=== PATIENT | female | born 1995 | race Two or more races ===

== ENCOUNTER 2017-12-10 11:36 | Emergency (ER) ==
[2017-12-10] MEDS ORDERED: SODIUM CHLORIDE 1,000 ML IV STA (11:46)
[2017-12-10 11:50] VITALS: BP 145/96; TEMP 97.6; BMI 18.8
[2017-12-10] MEDS ORDERED: ZOFRAN 4 MG/2 ML IM STA (12:10)
[2017-12-10] MEDS ORDERED: ZOFRAN 4 MG/2 ML IVP PRN (12:11)
[2017-12-10] MEDS ORDERED: PEPCID 20 MG in SODIUM CHLORIDE 50 ML IV STA (12:12)
[2017-12-10] MEDS ORDERED: ZOFRAN 4 MG/2 ML IVP STA (12:12)
[2017-12-10] MEDS ORDERED: PEPCID IVP STA (12:17)
[2017-12-10] MEDS ORDERED: PEPCID ONE (12:17)
[2017-12-10] MEDS ORDERED: PEPCID 20 MG in SODIUM CHLORIDE 50 ML IVP STA (12:20)
[2017-12-10] MEDS ORDERED: HUMALOG SUBCUT STA (12:27)
--- NOTE | 2017-12-10 12:31 | ED.PDOC ---
General ED Provider: Dr. BRIGIDA IRBY Chief Complaint: Diabetes Stated Complaint: Recurrent Nausea, Vomiting and elevated Blood glucose levels Time Seen by Physician: 12:05 Mode of Arrival: Wheelchair Information Source: Patient, Family Primary Care Provider: ROD GARRISON Nursing and Triage Documentation Reviewed and Agree: Yes Reviewed sepsis parameters & appropriate labs ordered?: Yes System Inflammatory Response Syndrome: Pulse >90 BPM, Resp >20/Minute Sepsis Protocol: For patient's 13 years and over: Temp is 96.8 and below OR 101 and greater Pulse >90 BPM Resp >20/minute Acutely Altered Mental Status Are patient's symptoms suggestive of a new infection, such as: -Pneumonia -Skin, Soft Tissue -Endocarditis -UTI -Bone, Joint Infection -Implantable Device -Acute Abdominal Infection -Wound Infection -Meningitis -Blood Stream Catheter Infection -Unknown System Inflammatory Response Syndrome: Not Applicable Endocrine Complaint Exam - Diabetic Complication Complaint/Exam Symptoms Are: Worse Timing: Intermittent Initial Severity: Severe Current Severity: Severe Character: Alert Alleviating: Reports: None Associated Signs and Symptoms: Reports: Polydipsia, Nausea, Vomiting. Denies: Abdominal pain, Fever, Diaphoresis Related History: Reports: Similar episode, DM 1, Insulin requiring, Hx of DKA Cardiac Risk Factors: Reports: DM CVA Risk Factors: Reports: DM Serious Bacterial Infection Risk Factors: Reports: None Related Surgical History: Reports: None Acetone on Breath: Yes Dry Mucous Membranes: Yes Kussmaul Respirations: No Meningeal Signs: No Focal Weakness: None Focal Sensory Loss: None Gait: Unable Nystagmus Present: No Gag Reflex Present: Yes Differential Diagnoses: Diabetic Ketoacidosis, Hyperglycemia Review of Systems - Review Of Systems Constitutional: Reports: Chills, Malaise, Weakness, Loss of appetite Eyes: Reports: No symptoms Ears, Nose, Mouth, Throat: Reports: No symptoms Respiratory: Reports: No symptoms Cardiac: Reports: No symptoms GI: Reports: Nausea, Poor appetite, Poor fluid intake, Vomiting. Denies: Abdomen distended, Diarrhea, Rectal bleeding : Reports: No symptoms. Denies: Burning, Dysuria, Hematuria, Incontinence, Urgency Musculoskeletal: Reports: No symptoms Skin: Reports: No symptoms Neurological: Reports: No symptoms Endocrine: Reports: Increased thirst Hematologic/Lymphatic: Reports: No symptoms All Other Systems: Reviewed and Negative Past Medical History - Past Medical History Endocrine: Reports: DM 1 Cardiovascular: Reports: None Respiratory: Reports: None Hematological: Reports: None Gastrointestinal: Reports: None Genitourinary: Reports: None Neuro/Psych: Reports: None Musculoskeletal: Reports: None Cancer: Reports: None Last Menstrual Period: 2 WEEKS - Surgical History General Surgical History: Reports: None - Family History Family History: Reports: None, Hypertension - Social History Smoking Status: Never smoker Hx Substance Use: No Alcohol Screening: None Lives: Alone - Immunizations Tetanus Shot up to Date: Yes Physical Exam - Physical Exam Appearance: Ill-appearing Ill-appearing: Severe Pain Distress: None Eyes: SANJUANITA, EOMI ENT: Ears normal, Nose normal Respiratory: Airway patent, Breath sounds clear Cardiovascular: RRR, Pulses normal GI/: Soft Musculoskeletal: Normal strength Skin: Warm Neurological: Sensation intact Psychiatric: Affect appropriate Re-Evaluation - Re-Evaluation Time of Re-Evaluation: 13:50 Status: Improved (Has spontaneous Void 700 cc) Vital Signs Stable: Yes Appearance: NAD Lungs: Clear Skin: Warm and Dry Neuro: Alert and Oriented X3 CV: RRR Additional Comments: Condition improved beginning to repond to tx/contacting hospitalist, - Re-Evaluation Time of Re-Evaluation: 07:45 Status: Improved Vital Signs Stable: Yes Skin: Warm and Dry (Transfering to [facility]) Neuro: Alert and Oriented X3 CV: RRR Additional Comments: Discussed with Hospitalist/prefers to transfer/ Transferring to Dr Contreras Critical Care Note - Critical Care Note Total Time (mins): 2 Course - Course Hematology/Chemistry: 12/10/17 11:30 12/10/17 14:10 Orders, Labs, Meds: Lab Review 12/10/17 12/10/17 12/10/17 11:30 11:30 12:25 WBC 21.79 H RBC 4.86 Hgb 15.1 Hct 47.4 H MCV 97.5 MCH 31.1 H MCHC 31.9 RDW Coeff of Ion 14.9 H Plt Count 480 H Immature Gran % (Auto) 2.2 Neut % (Auto) 56.2 Lymph % (Auto) 31.3 [place] % (Auto) 9.6 Eos % (Auto) 0.0 Baso % (Auto) 0.7 Immature Gran # (Auto) 0.5 Neut # 12.2 H Lymph # 6.8 H [place] # 2.1 H Eos # 0.0 Baso # 0.2 Puncture Site L brach O2 Saturation 98.0 ABG pH 6.965 L* ABG pCO2 8.9 L ABG pO2 150.0 H ABG HCO3 2.0 L ABG Total CO2 < 5 L ABG Base Excess -30 L Ricky Test + FiO2 % 21.0 Sodium 138 Potassium 4.7 Chloride 101 Carbon Dioxide < 5 L* Anion Gap 36.08633 BUN 15 Creatinine 1.68 H Estimated GFR (MDRD) 39.00 BUN/Creatinine Ratio 8.92 Glucose 650 H* Lactic Acid Calcium 9.9 Total Bilirubin 0.4 AST 77 H ALT 229 H Alkaline Phosphatase 289 H Total Protein 8.8 H Albumin 4.1 Globulin 4.7 Albumin/Globulin Ratio 0.87 Amylase 40 Lipase 18 Procalcitonin Urine Color Urine Clarity Urine pH Ur Specific [place] Urine Protein Urine Glucose (UA) Urine Ketones Urine Blood Urine Nitrite Urine Bilirubin Urine Urobilinogen Ur Leukocyte Esterase Urine Microscopic RBC Ur Squamous Epith Cells Influenza A (Rapid) Influenza B (Rapid) 12/10/17 12/10/17 12/10/17 12:57 12:57 13:25 WBC RBC Hgb Hct MCV MCH MCHC RDW Coeff of Ion Plt Count Immature Gran % (Auto) Neut % (Auto) Lymph % (Auto) [place] % (Auto) Eos % (Auto) Baso % (Auto) Immature Gran # (Auto) Neut # Lymph # [place] # Eos # Baso # Puncture Site O2 Saturation ABG pH ABG pCO2 ABG pO2 ABG HCO3 ABG Total CO2 ABG Base Excess Ricky Test FiO2 % Sodium Potassium Chloride Carbon Dioxide Anion Gap BUN Creatinine Estimated GFR (MDRD) BUN/Creatinine Ratio Glucose Lactic Acid 29.3 H Calcium Total Bilirubin AST ALT Alkaline Phosphatase Total Protein Albumin Globulin Albumin/Globulin Ratio Amylase Lipase Procalcitonin 0.05 Urine Color Yellow Urine Clarity Clear Urine pH 5.0 Ur Specific [place] 1.020 Urine Protein 1+ Urine Glucose (UA) 2+ Urine Ketones 3+ Urine Blood 1+ Urine Nitrite Negative Urine Bilirubin Negative Urine Urobilinogen 0.2 Ur Leukocyte Esterase Negative Urine Microscopic RBC 0-2 Ur Squamous Epith Cells 5-10 Influenza A (Rapid) Influenza B (Rapid) 12/10/17 12/10/17 12/10/17 13:35 13:57 14:10 WBC RBC Hgb Hct MCV MCH MCHC RDW Coeff of Ion Plt Count Immature Gran % (Auto) Neut % (Auto) Lymph % (Auto) [place] % (Auto) Eos % (Auto) Baso % (Auto) Immature Gran # (Auto) Neut # Lymph # [place] # Eos # Baso # Puncture Site R brachial O2 Saturation 98.0 ABG pH 6.894 L* ABG pCO2 10.1 L ABG pO2 163.0 H ABG HCO3 2.0 L ABG Total CO2 < 5 L ABG Base Excess < -30 L Ricky Test + FiO2 % 21.0 Sodium 141 Potassium 4.8 Chloride 111 H Carbon Dioxide < 5 L* Anion Gap 29.81211 BUN 14 Creatinine 1.30 Estimated GFR (MDRD) 52.00 BUN/Creatinine Ratio 10.76 Glucose 541 H* D Lactic Acid Calcium 8.2 Total Bilirubin AST ALT Alkaline Phosphatase Total Protein Albumin Globulin Albumin/Globulin Ratio Amylase Lipase Procalcitonin Urine Color Urine Clarity Urine pH Ur Specific [place] Urine Protein Urine Glucose (UA) Urine Ketones Urine Blood Urine Nitrite Urine Bilirubin Urine Urobilinogen Ur Leukocyte Esterase Urine Microscopic RBC Ur Squamous Epith Cells Influenza A (Rapid) Negative by naat Influenza B (Rapid) Negative by naat Orders Category Date Time Status ABG DRAW REQUEST Stat CARDIO 12/10/17 12:15 Completed ABG DRAW REQUEST Stat CARDIO 12/10/17 13:57 Completed EKG-(ED ONLY) Stat CARDIO 12/10/17 13:35 Completed BLOOD GLUCOSE MONITORING Q1HR CARE 12/10/17 12:28 Active BLOOD GLUCOSE MONITORING Q1HR CARE 12/10/17 13:49 Active ACCUCHECK (ED) [ED ACCUCHECK ASSESSMENT] .ONCE EMERGENCY 12/10/17 12:17 Active IV [ED IV/MEDIPORT/POWERPORT] .ONCE EMERGENCY 12/10/17 13:52 Active ABG Stat LAB 12/10/17 12:25 Completed ABG Stat LAB 12/10/17 13:57 Completed AMYLASE Stat LAB 12/10/17 11:30 Completed BASIC METABOLIC PANEL Stat LAB 12/10/17 14:10 Completed BLOOD CULTURE (ED ONLY) Stat LAB 12/10/17 13:15 Completed CBC W/ AUTO DIFF Stat LAB 12/10/17 11:30 Completed COMPREHENSIVE METABOLIC PANEL Stat LAB 12/10/17 11:30 Completed FLU A/B MOLECULAR Stat LAB 12/10/17 13:35 Completed LACTIC ACID Stat LAB 12/10/17 12:57 Completed LIPASE Stat LAB 12/10/17 11:30 Completed PROCALCITONIN Stat LAB 12/10/17 12:57 Completed RAPID STREP SCREEN [MOLECULAR GROUP A STREP] Stat LAB 12/10/17 13:35 Completed URINALYSIS C & S IF INDICATED Stat LAB 12/10/17 13:25 Completed 0.9 % Sodium Chloride [Saline Flush] MEDS 12/10/17 13:52 Discontinued 1 syr IVF PRN PRN 0.9 % Sodium Chloride [Sodium Chloride] 100 ml MEDS 12/10/17 14:00 Discontinued Insulin Regular, Human [Humulin R] 100 unit IV 10 unit/hr Famotidine Inj [Pepcid] MEDS 12/10/17 12:17 Discontinued 20 mg .ROUTE .STK-MED ONE Famotidine Inj [Pepcid] MEDS 12/10/17 12:17 Discontinued 20 mg IVP ONCE STA Famotidine Inj [Pepcid] 20 mg MEDS 12/10/17 12:12 Discontinued 0.9 % Sodium Chloride [Sodium Chloride] 50 ml IV ONCE Insulin Lispro [Humalog] MEDS 12/10/17 12:27 Discontinued 20 unit SUBCUT ONCE STA Insulin Regular, Human [Humulin R] MEDS 12/10/17 13:45 Discontinued 0.1 unit IVP ONCE STA Insulin Regular, Human [Humulin R] MEDS 12/10/17 12:36 Discontinued 20 unit .ROUTE .STK-MED ONE Ondansetron HCl/Pf [Zofran 4 mg/2 ml] MEDS 12/10/17 12:12 Discontinued 4 mg IVP ONCE STA Ondansetron HCl/Pf [Zofran 4 mg/2 ml] MEDS 12/10/17 12:11 Discontinued 4 mg IVP Q6H PRN Piperacillin Sodium/Tazobactam [Zosyn 3.375 gm] 3.375 MEDS 12/10/17 13:25 Discontinued gm 0.9 % Sodium Chloride [Sodium Chloride] 50 ml IV ONCE Sodium Chloride 0.9% [Sodium Chloride] 1,000 ml MEDS 12/10/17 11:46 Discontinued IV BOLUS Sodium Chloride 0.9% [Sodium Chloride] 1,000 ml MEDS 12/10/17 13:07 Discontinued IV BOLUS Sodium Chloride 0.9% [Sodium Chloride] 1,000 ml MEDS 12/10/17 13:54 Discontinued IV BOLUS CHEST, 1V AP ONLY Stat RADS 12/10/17 13:35 Completed Medications Discontinued Medications Generic Name Dose Route Start Last Admin Trade Name Coreyq PRN Reason Stop Dose Admin Famotidine 20 mg 12/10/17 12:17 12/10/17 12:32 Pepcid IVP 12/10/17 12:18 20 mg ONCE STA Administration Famotidine 20 mg/ Sodium 52 mls @ 100 mls/hr 12/10/17 12:12 12/10/17 12:42 Chloride IV 12/10/17 12:43 Not Given ONCE STA Sodium Chloride 1,000 mls @ 1,000 mls/hr 12/10/17 11:46 12/10/17 11:46 Sodium Chloride IV 12/10/17 12:45 1,000 mls/hr BOLUS STA Administration Sodium Chloride 1,000 mls @ 500 mls/hr 12/10/17 13:07 12/10/17 13:12 Sodium Chloride IV 12/10/17 15:06 500 mls/hr BOLUS ONE Administration Piperacillin Sod/Tazobactam 50 mls @ 50 mls/hr 12/10/17 13:25 12/10/17 14:09 Sod 3.375 gm/ Sodium Chloride IV 12/10/17 14:24 50 mls/hr ONCE STA Administration Insulin Human Regular 100 unit 100 mls @ 10 mls/hr 12/10/17 14:00 12/10/17 14 :21 / Sodium Chloride IV 10 unit/hr .Q10H TICO 10 mls/hr Protocol Administration 10 UNIT/HR Sodium Chloride 1,000 mls @ 1,000 mls/hr 12/10/17 13:54 12/10/17 14:26 Sodium Chloride IV 12/10/17 14:06 1,000 mls/hr BOLUS ONE Administration Insulin Human Lispro 20 unit 12/10/17 12:27 12/10/17 12:41 Humalog SUBCUT 12/10/17 12:28 Not Given ONCE STA Insulin Human Regular 0.1 unit 12/10/17 13:45 12/10/17 14:00 Humulin R IVP 12/10/17 13:46 5 unit ONCE STA Administration Ondansetron HCl 4 mg 12/10/17 12:11 Zofran 4 Mg/2 Ml IVP Q6H PRN Nausea -Vomiting Ondansetron HCl 4 mg 12/10/17 12:12 12/10/17 12:22 Zofran 4 Mg/2 Ml IVP 12/10/17 12:13 4 mg ONCE STA Administration Sodium Chloride 1 syr 12/10/17 13:52 Saline Flush IVF PRN PRN To flush IV Vital Signs: Temp Pulse Resp BP Pulse Ox 12/10/17 11:37 97.6 F 135 H 44 H 145/96 H 100 Departure - Departure Time of Disposition: 15:45 Disposition: TSF SHORT-TRM HOSP Discharge Problem: DKA (diabetic ketoacidoses) Instructions: Diabetic Ketoacidosis (GEN) Condition: Serious Pt referred to PMD for follow-up: No IPMP verified?: No (N/I) Allergies/Adverse Reactions: Allergies No Known Allergies Allergy (Unverified 12/10/17 11:51) Home Medications: Ambulatory Orders Insulin Glargine,Hum.rec.anlog [Lantus] 35 unit SQ BEDTIME 12/10/17 Insulin Lispro [Humalog Kwikpen] 100 unit SQ ACCUCHECK Q6H 12/10/17 Pt. Stabilized Within Hospital's Capabilities/Transferred To: [facility] CCU Transfer Form Completed: Yes Disposition Discussed With: Patient, Family
[2017-12-10] MEDS ORDERED: HUMULIN R ONE (12:36)
[2017-12-10] MEDS ORDERED: SODIUM CHLORIDE 1,000 ML IV ONE ×2 (13:07→13:54)
[2017-12-10] MEDS ORDERED: ZOSYN 3.375 GM 3.375 GM in SODIUM CHLORIDE 50 ML IV STA (13:25)
[2017-12-10] MEDS ORDERED: HUMULIN R IVP STA (13:45)
[2017-12-10] MEDS ORDERED: HUMULIN R 100 UNIT in SODIUM CHLORIDE 100 ML IV SCH (14:00)
--- NOTE | 2017-12-10 14:28 | DI ---
EXAM: Single frontal view of the chest HISTORY: Diabetic ketoacidosis. COMPARISON: None FINDINGS: Cardiomediastinal silhouette is unremarkable. There is no pneumothorax or pleural effusion . The lungs demonstrate no consolidation, nodule or mass. The osseous structures are unremarkable. IMPRESSION: No acute cardiopulmonary process.
== END 2017-12-10 15:30 | disposition short-term general hospital (02) ==
LOC: ED 11:36
DX: E10.10 Type 1 diabetes mellitus with ketoacidosis without coma (principal); Z79.4 Long term (current) use of insulin
CPT/HCPCS: 36415; 80048; 80053; 81001; 82150; 82803; 82962; 83605; 83690; 84145; 85025; 87040; 87502; 87651; 93005; 93010; 96361; 96365; 96366; 96372; 96375; 99285

== ENCOUNTER 2017-12-10 15:48 | Outpatient (CLI) ==
[2017-12-10 11:50] VITALS: BMI 18.8
== END 2017-12-10 15:49 | disposition short-term general hospital (02) ==
LOC: AMBL 15:48
PROVIDERS: ATTEND Emergency Medicine
DX: E11.10 Type 2 diabetes mellitus with ketoacidosis without coma (principal); R06.82 Tachypnea, not elsewhere classified; R00.0 Tachycardia, unspecified

== ENCOUNTER 2018-02-12 06:31 | Emergency (ER) ==
[2018-02-12] MEDS ORDERED: SODIUM CHLORIDE 1,000 ML IV STA ×4 (06:40→08:19)
[2018-02-12 06:57] VITALS: BP 129/91; TEMP 97.7; BMI 20.3
[2018-02-12] MEDS ORDERED: ZOFRAN 4 MG/2 ML IVP STA (07:48)
[2018-02-12] MEDS ORDERED: UNASYN 3 GM in SODIUM CHLORIDE 100 ML IV STA (07:57)
[2018-02-12] MEDS ORDERED: HUMULIN R 100 UNIT in SODIUM CHLORIDE 100 ML IV SCH (08:00)
[2018-02-12] MEDS ORDERED: UNASYN ONE (08:03)
--- NOTE | 2018-02-12 08:12 | ED.PDOC ---
General ED Provider: Dr. CECILIA WILHELM Chief Complaint: Diabetes Stated Complaint: high blood sugar Time Seen by Physician: 07:00 (seen with entire nursing staff) Mode of Arrival: Wheelchair Information Source: Patient, Family Exam Limitations: No limitations Primary Care Provider: ROD GARRISON Nursing and Triage Documentation Reviewed and Agree: Yes (pt's blood sugar high 1 day ago ) Reviewed sepsis parameters & appropriate labs ordered?: Yes (started to become nauseated blood sgar read high on her machine) System Inflammatory Response Syndrome: Not Applicable Sepsis Protocol: For patient's 13 years and over: Temp is 96.8 and below OR 101 and greater Pulse >90 BPM Resp >20/minute Acutely Altered Mental Status Are patient's symptoms suggestive of a new infection, such as: -Pneumonia -Skin, Soft Tissue -Endocarditis -UTI -Bone, Joint Infection -Implantable Device -Acute Abdominal Infection -Wound Infection -Meningitis -Blood Stream Catheter Infection -Unknown System Inflammatory Response Syndrome: Not Applicable Miscellaneous Complaint Exam - Complex/Multi-System Complaint/Exam Onset/Duration: 1 day Symptoms Are: Still present Episodes Lasting: Hours Initial Severity: Severe Current Severity: Severe Location of Pain: none Associated Signs and Symptoms: Reports: Nausea. Denies: Decreased responsiveness, Confusion, Agitation, Dizziness, Weakness, Syncope, Headache, Short of air, Cough, Wheezing, Hemoptysis, Chest pain, Palpitations, Edema, Vomiting, Diarrhea, Abdominal pain, Back pain, Dysuria, Hematemesis, Melena, Decreased oral intake, Fever, Diaphoresis, Immunocompromised, Anticoagulation Therapy, Recent medication changes, Indwelling medical assistant float, Prior MRSA, Prior VRE, Recent trauma, Remote trauma Recent Echo/LV Function: No Respiratory Distress: None JVD Present: No Tachypnea Present: No Stridor Present: No Abdominal Findings: Present: Normal findings Glascow Coma Scale (see protocol): 15 Meningeal Signs Positive: No Focal Weakness: Present: None Focal Sensory Loss: Present: None Gait: Normal Gag Reflex Present: Yes Babinski Sign: Negative Right, Negative Left Skin Findings: Present: Normal findings Joint Swelling Present: No In-Dwelling Device Present: No Differential Diagnosis: Metabolic Abnormality, Sepsis Quality Indicators for Cardiac Chest Pain: EKG in 10min. Quality Indicators for AMI: EKG in 10min. Quality Indicator For Non-Traumatic Chest Pain/Syncope: EKG Performed Review of Systems - Review Of Systems Constitutional: Reports: Malaise, Weakness, Loss of appetite Eyes: Reports: No symptoms Ears, Nose, Mouth, Throat: Reports: No symptoms Respiratory: Reports: Cough, Short of air Cardiac: Reports: No symptoms GI: Reports: No symptoms : Reports: No symptoms Musculoskeletal: Reports: No symptoms Skin: Reports: No symptoms Neurological: Reports: No symptoms Endocrine: Reports: No symptoms Hematologic/Lymphatic: Reports: No symptoms All Other Systems: Reviewed and Negative Past Medical History - Past Medical History Previously Healthy: Yes Endocrine: Reports: DM 1, Other (dka) Cardiovascular: Reports: None Respiratory: Reports: None Hematological: Reports: None Gastrointestinal: Reports: None Genitourinary: Reports: None Neuro/Psych: Reports: None Musculoskeletal: Reports: None Cancer: Reports: None Last Menstrual Period: 3-4 WEEKS AGO - Surgical History General Surgical History: Reports: None - Family History Family History: Reports: None - Social History Smoking Status: Never smoker Hx Substance Use: No Alcohol Screening: None - Immunizations Tetanus Shot up to Date: Yes Physical Exam - Physical Exam Appearance: Ill-appearing Ill-appearing: Severe Pain Distress: Severe Eyes: SANJUANITA, EOMI, Conjunctiva clear ENT: Dry mucosa Respiratory: Airway patent, Breath sounds clear, Breath sounds equal, Respirations nonlabored Cardiovascular: RRR, Pulses normal, No rub, No murmur GI/: Soft, Nontender, No masses, Bowel sounds normal, No Organomegaly Musculoskeletal: Normal strength, ROM intact, No edema, No calf tenderness Skin: Warm, Dry, Normal color Neurological: Sensation intact, Motor intact, Reflexes intact, Cranial nerves intact, Alert, Oriented Psychiatric: Affect appropriate, Mood appropriate Interpretation - Chart Calculator Rate: Tachy Rhythm: Sinus - EKG Interpretation Rate: Tachy Rhythm: Sinus Physician Notification - Case Discussed Physician Notified: abigail SAENZ Time of Notification: 08:13 (ACCEPTED FOR TRANSFER ) Critical Care Note - Critical Care Note Total Time (mins): 2 Course - Course Hematology/Chemistry: 02/12/18 06:50 02/12/18 06:50 Orders, Labs, Meds: Lab Review 02/12/18 02/12/18 02/12/18 06:38 06:50 06:50 WBC 20.82 H RBC 5.13 Hgb 16.4 H Hct 49.4 H MCV 96.3 MCH 32.0 H MCHC 33.2 RDW Coeff of Ion 13.2 Plt Count 440 Immature Gran % (Auto) 1.2 Neut % (Auto) 62.0 Lymph % (Auto) 27.7 [place] % (Auto) 8.4 Eos % (Auto) 0.0 Baso % (Auto) 0.7 Immature Gran # (Auto) 0.2 Neut # (Auto) 12.9 H Lymph # (Auto) 5.8 H [place] # (Auto) 1.7 Eos # (Auto) 0.0 Baso # (Auto) 0.2 Puncture Site R brach O2 Saturation 97.0 ABG pH 7.06 L* ABG pCO2 9.8 L ABG pO2 130.0 H ABG HCO3 2.8 L ABG Total CO2 5 L ABG Base Excess -28 L Ricky Test + O2 Delivery Device Ra FiO2 % 21.0 Sodium 132 L Potassium 5.0 Chloride 96 L Carbon Dioxide < 5 L* Anion Gap 36.37515 BUN 20 H Creatinine 1.64 H Estimated GFR (MDRD) 40.00 BUN/Creatinine Ratio 12.19 Glucose 600 H* Calcium 9.8 Magnesium Total Bilirubin 0.3 AST 52 H ALT 70 Alkaline Phosphatase 252 H Total Protein 9.8 H Albumin 4.1 Globulin 5.7 Albumin/Globulin Ratio 0.72 Amylase 34 Lipase 21 Procalcitonin Serum , Qual Acetone, Qual 02/12/18 02/12/18 02/12/18 06:50 06:50 06:50 WBC RBC Hgb Hct MCV MCH MCHC RDW Coeff of Ion Plt Count Immature Gran % (Auto) Neut % (Auto) Lymph % (Auto) [place] % (Auto) Eos % (Auto) Baso % (Auto) Immature Gran # (Auto) Neut # (Auto) Lymph # (Auto) [place] # (Auto) Eos # (Auto) Baso # (Auto) Puncture Site O2 Saturation ABG pH ABG pCO2 ABG pO2 ABG HCO3 ABG Total CO2 ABG Base Excess Ricky Test O2 Delivery Device FiO2 % Sodium Potassium Chloride Carbon Dioxide Anion Gap BUN Creatinine Estimated GFR (MDRD) BUN/Creatinine Ratio Glucose Calcium Magnesium 2.9 H Total Bilirubin AST ALT Alkaline Phosphatase Total Protein Albumin Globulin Albumin/Globulin Ratio Amylase Lipase Procalcitonin Serum , Qual Negative Acetone, Qual +1 02/12/18 06:50 WBC RBC Hgb Hct MCV MCH MCHC RDW Coeff of Ion Plt Count Immature Gran % (Auto) Neut % (Auto) Lymph % (Auto) [place] % (Auto) Eos % (Auto) Baso % (Auto) Immature Gran # (Auto) Neut # (Auto) Lymph # (Auto) [place] # (Auto) Eos # (Auto) Baso # (Auto) Puncture Site O2 Saturation ABG pH ABG pCO2 ABG pO2 ABG HCO3 ABG Total CO2 ABG Base Excess Ricky Test O2 Delivery Device FiO2 % Sodium Potassium Chloride Carbon Dioxide Anion Gap BUN Creatinine Estimated GFR (MDRD) BUN/Creatinine Ratio Glucose Calcium Magnesium Total Bilirubin AST ALT Alkaline Phosphatase Total Protein Albumin Globulin Albumin/Globulin Ratio Amylase Lipase Procalcitonin 0.14 Serum , Qual Acetone, Qual Orders Category Date Time Status ABG DRAW REQUEST Stat CARDIO 02/12/18 06:39 Completed EKG-(ED ONLY) Stat CARDIO 02/12/18 06:39 Completed ACCUCHECK (ED) [ED ACCUCHECK ASSESSMENT] .ONCE EMERGENCY 02/12/18 07:01 Active Chart Calculator [ED DROP CLIPPER APPLIED] .ONCE EMERGENCY 02/12/18 06:40 Active IV [ED IV/MEDIPORT/POWERPORT] .ONCE EMERGENCY 02/12/18 06:39 Active ABG Stat LAB 02/12/18 06:38 Completed ACETONE, QUALITATIVE Stat LAB 02/12/18 06:50 Completed AMYLASE Stat LAB 02/12/18 06:50 Completed CBC W/ AUTO DIFF Stat LAB 02/12/18 06:50 Completed COMPREHENSIVE METABOLIC PANEL Stat LAB 02/12/18 06:50 Completed LIPASE Stat LAB 02/12/18 06:50 Completed MAGNESIUM Stat LAB 02/12/18 06:50 Completed PROCALCITONIN Stat LAB 02/12/18 06:50 Completed SERUM Stat LAB 02/12/18 06:50 Completed URINALYSIS C & S IF INDICATED Stat LAB 02/12/18 06:38 Uncollected 0.9 % Sodium Chloride [Saline Flush] MEDS 02/12/18 06:39 Active 1 syr IVF PRN PRN 0.9 % Sodium Chloride [Sodium Chloride] 100 ml MEDS 02/12/18 08:00 Active Insulin Regular, Human [Humulin R] 100 unit IV 5 unit/hr Ampicillin Sodium/Sulbactam Na [Unasyn] MEDS 02/12/18 08:03 Discontinued 3 gm .ROUTE .STK-MED ONE Ampicillin Sodium/Sulbactam Na [Unasyn] 3 gm MEDS 02/12/18 07:57 Active 0.9 % Sodium Chloride [Sodium Chloride] 100 ml IV ONCE Ondansetron HCl/Pf [Zofran 4 mg/2 ml] MEDS 02/12/18 07:48 Discontinued 4 mg IVP ONCE STA Sodium Chloride 0.9% [Sodium Chloride] 1,000 ml MEDS 02/12/18 06:40 Discontinued IV BOLUS Sodium Chloride 0.9% [Sodium Chloride] 1,000 ml MEDS 02/12/18 06:53 Active IV BOLUS Sodium Chloride 0.9% [Sodium Chloride] 1,000 ml MEDS 02/12/18 07:18 Active IV BOLUS Medications Generic Name Dose Route Start Last Admin Trade Name Freq PRN Reason Stop Dose Admin Sodium Chloride 1,000 mls @ 150 mls/hr 02/12/18 06:53 Sodium Chloride IV 02/12/18 13:32 BOLUS STA Sodium Chloride 1,000 mls @ 1,000 mls/hr 02/12/18 07:18 02/12/18 07:23 Sodium Chloride IV 02/12/18 08:17 Not Given BOLUS STA Insulin Human Regular 100 unit 100 mls @ 5 mls/hr 02/12/18 08:00 / Sodium Chloride IV .Q20H TICO Protocol 5 UNIT/HR Ampicillin Sodium/Sulbactam 100 mls @ 100 mls/hr 02/12/18 07:57 Sodium 3 gm/ Sodium Chloride IV 02/12/18 08:56 ONCE STA Sodium Chloride 1 syr 02/12/18 06:39 02/12/18 06:57 Saline Flush IVF 1 syr PRN PRN Administration To flush IV Discontinued Medications Generic Name Dose Route Start Last Admin Trade Name Freq PRN Reason Stop Dose Admin Sodium Chloride 1,000 mls @ 1,000 mls/hr 02/12/18 06:40 02/12/18 06:54 Sodium Chloride IV 02/12/18 07:39 1,000 mls/hr BOLUS STA Administration Ondansetron HCl 4 mg 02/12/18 07:48 Zofran 4 Mg/2 Ml IVP 02/12/18 07:49 ONCE STA Vital Signs: Temp Pulse Resp BP Pulse Ox 02/12/18 06:33 97.7 F 140 H 36 H 129/91 H 98 Departure - Departure Time of Disposition: 08:14 Disposition: TSF SHORT-TRM HOSP Discharge Problem: DKA, type 1 Qualifiers: Diabetes mellitus complication detail: without coma Qualified Code(s): E10.10 - Type 1 diabetes mellitus with ketoacidosis without coma Instructions: Diabetic Ketoacidosis (DC) Condition: Good Pt referred to PMD for follow-up: Yes IPMP verified?: Yes Additional Instructions: Please call your Family Physician as soon as possible to schedule a follow-up appointment. Allergies/Adverse Reactions: Allergies No Known Allergies Allergy (Verified 02/12/18 06:45) Home Medications: Ambulatory Orders Insulin Glargine,Hum.rec.anlog [Lantus] 35 unit SQ BEDTIME 12/10/17 Insulin Lispro [Humalog Kwikpen] 100 unit SQ ACCUCHECK Q6H PRN 12/10/17 Norgestimate-Ethinyl Estradiol [Tri-Sprintec Tablet] 1 each PO DAILY 02/12/18 Pt. Stabilized Within Hospital's Capabilities/Transferred To: PT FULLY ALERT GCS 15 . 1,5 LITTER FLUID GIVEN STARTED DRIP 5U/HR Transfer Form Completed: Yes Disposition Discussed With: Patient, Family
== END 2018-02-12 09:00 | disposition short-term general hospital (02) ==
LOC: ED 06:31
DX: E10.10 Type 1 diabetes mellitus with ketoacidosis without coma (principal); R05 Cough; R06.02 Shortness of breath
CPT/HCPCS: 36415; 80053; 82009; 82150; 82803; 82962; 83690; 83735; 84145; 84703; 85025; 93005; 93010; 96361; 96365; 96368; 96375; 99285

== ENCOUNTER 2018-02-12 08:54 | Outpatient (CLI) ==
[2018-02-12 06:57] VITALS: BMI 20.3
== END 2018-02-12 08:55 | disposition short-term general hospital (02) ==
LOC: AMBL 08:54
PROVIDERS: ATTEND Internal Medicine
DX: E11.10 Type 2 diabetes mellitus with ketoacidosis without coma (principal); R53.1 Weakness; R00.0 Tachycardia, unspecified; R06.9 Unspecified abnormalities of breathing

== ENCOUNTER 2019-05-02 20:40 | Inpatient (IN) ==
[2019-05-02 20:57] VITALS: BMI 20.5
[2019-05-02] MEDS ORDERED: SODIUM CHLORIDE 1,000 ML IV STA (20:57)
--- NOTE | 2019-05-02 21:32 | ED.PDOC ---
General ED Provider: Dr. BRIGIDA FLOREZ-ER Chief Complaint: Diabetes Stated Complaint: i think i am in DKA Time Seen by Physician: 20:55 Mode of Arrival: Walk-In Information Source: Patient Exam Limitations: No limitations Primary Care Provider: ROD GARRISON Nursing and Triage Documentation Reviewed and Agree: Yes Does patient meet sepsis criteria?: No System Inflammatory Response Syndrome: Not Applicable Sepsis Protocol: For patient's 13 years and over: Temp is 96.8 and below OR 101 and greater Pulse >90 BPM Resp >20/minute Acutely Altered Mental Status Are patient's symptoms suggestive of a new infection, such as: -Pneumonia -Skin, Soft Tissue -Endocarditis -UTI -Bone, Joint Infection -Implantable Device -Acute Abdominal Infection -Wound Infection -Meningitis -Blood Stream Catheter Infection -Unknown Endocrine Complaint Exam - Diabetic Complication Complaint/Exam Onset/Duration: this am Symptoms Are: Still present Timing: Constant Initial Severity: Mild Current Severity: Moderate Character: Alert Aggravating: Reports: Diet change Alleviating: Reports: None Associated Signs and Symptoms: Reports: Nausea, Vomiting. Denies: Fever Related History: Reports: DM 1, Insulin requiring Dry Mucous Membranes: Yes Kussmaul Respirations: Yes Glascow Coma Scale (see protocol): 15 Meningeal Signs: No Focal Weakness: None Focal Sensory Loss: None Gait: Normal Nystagmus Present: No Gag Reflex Present: Yes Finger to Nose: Normal Romberg Test Positive: No Babinski Sign: Negative Right, Negative Left Heel to Toe Normal: No Differential Diagnoses: Diabetic Ketoacidosis Quality Indicator For Non-Traumatic Chest Pain/Syncope: EKG Performed Review of Systems - Review Of Systems Constitutional: Reports: No symptoms Eyes: Reports: No symptoms Ears, Nose, Mouth, Throat: Reports: No symptoms Respiratory: Reports: No symptoms Cardiac: Reports: Palpitations GI: Reports: No symptoms : Reports: No symptoms Musculoskeletal: Reports: No symptoms Skin: Reports: No symptoms Neurological: Reports: No symptoms Endocrine: Reports: No symptoms Hematologic/Lymphatic: Reports: No symptoms All Other Systems: Reviewed and Negative Past Medical History - Past Medical History Previously Healthy: Yes Endocrine: Reports: DM 1, Other (dka) Cardiovascular: Reports: None Respiratory: Reports: None Hematological: Reports: None Gastrointestinal: Reports: None Genitourinary: Reports: None Neuro/Psych: Reports: None Musculoskeletal: Reports: None Cancer: Reports: None Last Menstrual Period: 05/01/2019 - Surgical History General Surgical History: Reports: None - Family History Family History: Reports: None - Social History Smoking Status: Never smoker Hx Substance Use: No Alcohol Screening: None - Immunizations Tetanus Shot up to Date: Yes Physical Exam - Physical Exam Appearance: Well-appearing Eyes: SANJUANITA, EOMI, Conjunctiva clear ENT: Dry mucosa Neck: Supple Respiratory: Airway patent, Breath sounds clear, Breath sounds equal, Respirations nonlabored Cardiovascular: RRR, Pulses normal, No rub, No murmur, Tachycardia GI/: Soft, Nontender, No masses, Bowel sounds normal, No Organomegaly Musculoskeletal: Normal strength, ROM intact, No edema, No calf tenderness Skin: Warm, Dry, Normal color Neurological: Sensation intact, Motor intact, Reflexes intact, Cranial nerves intact, Alert, Oriented Psychiatric: Affect appropriate, Mood appropriate Interpretation - Radiology Interpretation Radiology Interpretation By: ED Physician Radiology Results: Negative Exam Interpreted: Portable CXR - EKG Interpretation Time of EKG #1: 22:05 Rate: Tachy Rhythm: Sinus Ectopy: None [place]: [place] ST Segment: Normal Interpretation: sinus tachy Physician Notification - Case Discussed Physician Notified: dr blackmon Time of Notification: 22:05 Critical Care Note - Critical Care Note Total Time (mins): 45 Course - Course Hematology/Chemistry: 05/02/19 21:30 05/02/19 21:30 Orders, Labs, Meds: Lab Review 05/02/19 05/02/19 05/02/19 20:56 21:30 21:30 WBC 21.26 H RBC 5.50 H Hgb 16.7 H Hct 51.3 H MCV 93.3 MCH 30.4 MCHC 32.6 RDW Coeff of Ion 13.2 Plt Count 367 Immature Gran % (Auto) 1.1 Neut % (Auto) 75.2 Lymph % (Auto) 15.8 Edmunds % (Auto) 7.2 Eos % (Auto) 0.1 Baso % (Auto) 0.6 Immature Gran # (Auto) 0.2 Neut # (Auto) 16.0 H Lymph # (Auto) 3.4 Edmunds # (Auto) 1.5 Eos # (Auto) 0.0 Baso # (Auto) 0.1 Puncture Site Lb O2 Saturation 99.0 ABG pH 7.206 L* ABG pCO2 8.0 L ABG pO2 180.0 H ABG HCO3 3.2 L ABG Total CO2 5 L ABG Base Excess -25 L Ricky Test + FiO2 % 21.0 Sodium 136.0 Potassium 4.37 Chloride 106.9 Carbon Dioxide < 5.0 L* Anion Gap [id number] BUN 10.1 Creatinine 0.69 Estimated GFR (MDRD) 106.00 BUN/Creatinine Ratio 14.63 Glucose 229.4 H Calcium 9.55 Total Bilirubin 0.53 AST 27.7 ALT 27.4 Alkaline Phosphatase 179.1 H Total Protein 8.22 H Albumin 4.79 Globulin 3.43 Albumin/Globulin Ratio 1.39 Serum , Qual 05/02/19 21:30 WBC RBC Hgb Hct MCV MCH MCHC RDW Coeff of Ion Plt Count Immature Gran % (Auto) Neut % (Auto) Lymph % (Auto) Edmunds % (Auto) Eos % (Auto) Baso % (Auto) Immature Gran # (Auto) Neut # (Auto) Lymph # (Auto) Edmunds # (Auto) Eos # (Auto) Baso # (Auto) Puncture Site O2 Saturation ABG pH ABG pCO2 ABG pO2 ABG HCO3 ABG Total CO2 ABG Base Excess Ricky Test FiO2 % Sodium Potassium Chloride Carbon Dioxide Anion Gap BUN Creatinine Estimated GFR (MDRD) BUN/Creatinine Ratio Glucose Calcium Total Bilirubin AST ALT Alkaline Phosphatase Total Protein Albumin Globulin Albumin/Globulin Ratio Serum , Qual Negative Orders Category Date Time Status ADMIT PATIENT INPATIENT .TO SCU (MONITORED BED) ADMISSION 05/02/19 22:06 Active ABG DRAW REQUEST Stat CARDIO 05/02/19 20:56 Ordered EKG-(ED ONLY) Stat CARDIO 05/02/19 20:56 Ordered BLOOD GLUCOSE MONITORING Q1HR CARE 05/02/19 22:04 Active BLOOD GLUCOSE MONITORING Q1HR CARE 05/02/19 22:08 Inactive TELEMETRY MONITORING TELE CARE 05/02/19 22:07 Active Telemetry [TELEMETRY MONITORING] TELE CARE 05/02/19 22:11 Inactive ED LABEL PINKER APPLIED .ONCE EMERGENCY 05/02/19 20:56 Active ED IV/MEDIPORT/POWERPORT .ONCE EMERGENCY 05/02/19 20:56 Active ABG Stat LAB 05/02/19 20:56 Completed BASIC METABOLIC PANEL Q4HR LAB 05/03/19 01:00 Ordered BASIC METABOLIC PANEL Q4HR LAB 05/03/19 05:00 Ordered BASIC METABOLIC PANEL Q4HR LAB 05/03/19 09:00 Ordered BASIC METABOLIC PANEL Q4HR LAB 05/03/19 13:00 Ordered BASIC METABOLIC PANEL Q4HR LAB 05/03/19 17:00 Ordered BASIC METABOLIC PANEL Q4HR LAB 05/03/19 21:00 Ordered BASIC METABOLIC PANEL Q4HR LAB 05/04/19 01:00 Ordered BASIC METABOLIC PANEL Q4HR LAB 05/04/19 05:00 Ordered BASIC METABOLIC PANEL Q4HR LAB 05/04/19 09:00 Ordered BASIC METABOLIC PANEL Q4HR LAB 05/04/19 13:00 Ordered BASIC METABOLIC PANEL Q4HR LAB 05/04/19 17:00 Ordered BASIC METABOLIC PANEL Q4HR LAB 05/04/19 21:00 Ordered BASIC METABOLIC PANEL Q4HR LAB 05/05/19 01:00 Ordered BASIC METABOLIC PANEL Q4HR LAB 05/05/19 05:00 Ordered BASIC METABOLIC PANEL Q4HR LAB 05/05/19 09:00 Ordered BASIC METABOLIC PANEL Q4HR LAB 05/05/19 13:00 Ordered BASIC METABOLIC PANEL Q4HR LAB 05/05/19 17:00 Ordered BASIC METABOLIC PANEL Q4HR LAB 05/05/19 21:00 Ordered BASIC METABOLIC PANEL Q4HR LAB 05/06/19 01:00 Ordered BASIC METABOLIC PANEL Q4HR LAB 05/06/19 05:00 Ordered BASIC METABOLIC PANEL Q4HR LAB 05/06/19 09:00 Ordered BASIC METABOLIC PANEL Q4HR LAB 05/06/19 13:00 Ordered BASIC METABOLIC PANEL Q4HR LAB 05/06/19 17:00 Ordered BASIC METABOLIC PANEL Q4HR LAB 05/06/19 21:00 Ordered BASIC METABOLIC PANEL Q4HR LAB 05/07/19 01:00 Ordered BASIC METABOLIC PANEL Q4HR LAB 05/07/19 05:00 Ordered BASIC METABOLIC PANEL Q4HR LAB 05/07/19 09:00 Ordered BASIC METABOLIC PANEL Q4HR LAB 05/07/19 13:00 Ordered BASIC METABOLIC PANEL Q4HR LAB 05/07/19 17:00 Ordered BASIC METABOLIC PANEL Q4HR LAB 05/07/19 21:00 Ordered BASIC METABOLIC PANEL Q4HR LAB 05/08/19 01:00 Ordered BASIC METABOLIC PANEL Q4HR LAB 05/08/19 05:00 Ordered BASIC METABOLIC PANEL Q4HR LAB 05/08/19 09:00 Ordered BASIC METABOLIC PANEL Q4HR LAB 05/08/19 13:00 Ordered BASIC METABOLIC PANEL Q4HR LAB 05/08/19 17:00 Ordered BASIC METABOLIC PANEL Q4HR LAB 05/08/19 21:00 Ordered BASIC METABOLIC PANEL Q4HR LAB 05/09/19 01:00 Ordered BASIC METABOLIC PANEL Q4HR LAB 05/09/19 05:00 Ordered BASIC METABOLIC PANEL Q4HR LAB 05/09/19 09:00 Ordered BASIC METABOLIC PANEL Q4HR LAB 05/09/19 13:00 Ordered BASIC METABOLIC PANEL Q4HR LAB 05/09/19 17:00 Ordered BASIC METABOLIC PANEL Q4HR LAB 05/09/19 21:00 Ordered CBC W/ AUTO DIFF Stat LAB 05/02/19 21:30 Completed CBC W/ AUTO DIFF Timed LAB 05/03/19 07:00 Ordered COMPREHENSIVE METABOLIC PANEL Stat LAB 05/02/19 21:30 Completed SERUM Stat LAB 05/02/19 21:30 Completed URINALYSIS C & S IF INDICATED Stat LAB 05/02/19 20:56 Uncollected 0.9 % Sodium Chloride [Saline Flush] MEDS 05/02/19 20:56 Ordered 1 syr IVF PRN PRN 0.9 % Sodium Chloride [Sodium Chloride] 100 ml MEDS 05/02/19 22:30 Ordered Insulin Regular, Human [Humulin R] 100 unit IV 2 unit/hr Ceftriaxone Sodium [Rocephin] 1 gm MEDS 05/02/19 22:30 Ordered 0.9 % Sodium Chloride [Sodium Chloride] 50 ml IV DAILY Norgestimate-Ethinyl Estradiol [Tri-Sprintec Tablet] MEDS 05/03/19 09:00 Ordered 1 each PO DAILY Sodium Chloride 0.9% [Sodium Chloride] 1,000 ml MEDS 05/02/19 22:30 Ordered IV 150 mls/hr Sodium Chloride 0.9% [Sodium Chloride] 1,000 ml MEDS 05/02/19 20:57 Discontinued IV BOLUS CXR [CHEST, 1V AP ONLY] Stat RADS 05/02/19 21:46 Completed Medications Generic Name Dose Route Start Last Admin Trade Name Freq PRN Reason Stop Dose Admin Sodium Chloride 1,000 mls @ 150 mls/hr 05/02/19 22:30 Sodium Chloride IV .Q6H40M TICO Ceftriaxone Sodium 1 gm/ 50 mls @ 75 mls/hr 05/02/19 22:30 Sodium Chloride IV 05/05/19 22:29 DAILY TICO Insulin Human Regular 100 unit 100 mls @ 2 mls/hr 05/02/19 22:30 / Sodium Chloride IV .Q24H TICO Protocol 2 UNIT/HR Non-Formulary Medication 1 each 05/03/19 09:00 Norgestimate-Ethinyl Estradiol [Tri-Sprintec Tablet] PO DAILY TICO Sodium Chloride 1 syr 05/02/19 20:56 Saline Flush IVF PRN PRN To flush IV Discontinued Medications Generic Name Dose Route Start Last Admin Trade Name Freq PRN Reason Stop Dose Admin Sodium Chloride 1,000 mls @ 1,000 mls/hr 05/02/19 20:57 05/02/19 21:35 Sodium Chloride IV 05/02/19 21:56 1,000 mls/hr BOLUS STA Administration Vital Signs: Temp Pulse Resp BP Pulse Ox 05/02/19 20:54 97.9 F 139 H 22 113/80 99 Departure - Departure Time of Disposition: 22:05 Disposition: ADMITTED INPATIENT Discharge Problem: DKA (diabetic ketoacidoses) Qualifiers: Diabetes mellitus type: type 1 Diabetes mellitus complication detail: without coma Qualified Code(s): E10.10 - Type 1 diabetes mellitus with ketoacidosis without coma Instructions: Diabetic Ketoacidosis (DC) Condition: Good Pt referred to PMD for follow-up: Yes IPMP verified?: No Allergies/Adverse Reactions: Allergies No Known Allergies Allergy (Verified 05/02/19 20:45) Home Medications: Ambulatory Orders Insulin Glargine,Hum.rec.anlog [Lantus] 20 unit SQ BEDTIME 12/10/17 Insulin Lispro [Humalog Kwikpen] 1 unit SQ ACCUCHECK Q6H PRN 12/10/17 Norgestimate-Ethinyl Estradiol [Tri-Sprintec Tablet] 1 each PO DAILY 02/12/18 Disposition Discussed With: Patient, Family
--- NOTE | 2019-05-02 22:10 | DI ---
EXAM: Chest, one-view HISTORY: Vomiting FINDINGS: Cardiac and mediastinal contours are normal. Pulmonary vasculature is normal. Lungs are clear. Bony thorax is unremarkable. IMPRESSION: Within normal limits
[2019-05-02] MEDS ORDERED: HUMULIN R 100 UNIT in SODIUM CHLORIDE 100 ML IV SCH ×5 (22:15→22:30)
[2019-05-02] MEDS ORDERED: HUMULIN R ONE (22:26)
[2019-05-02] MEDS ORDERED: ROCEPHIN 1 GM in SODIUM CHLORIDE 50 ML IV SCH (22:30)
[2019-05-02] MEDS ORDERED: SODIUM CHLORIDE 1,000 ML IV SCH ×3 (22:30→23:45)
[2019-05-02] MEDS ORDERED: D5%-1/2NS-KCL 20 MEQ/L IV SOL 1,000 ML IV STA (22:33)
--- NOTE | 2019-05-02 23:10 | PCM ---
- Chief Complaint Chief Complaint: Dehydration, type 1 Diabetes, concern DKA. - History of Present Illness History of Present Illness: 24 yo F patient of Claudia Rand presented to [facility] ED tonight 05/02/19 at 20:55 with "I think I am in DKA." Temp in ED 97.9 pulse 139, rr 22, bp 113/ 80, pulse 99. She had known history of DM1, BMI 20.5, weight of 115. Patient [place] festival this [place] x 4 days, poor diet, poor hydration and sunburned. She presented with moderate symptoms, dietary changes, Nausea/vomiting non bloody emesis, without fever, without obvious source of infection. She is an insulin dependent diabetic patietn x 1. Presented with GCS 15. No focal weakness, normal gait, negative babinski and normal exam. EKG was performed. ROS reviewed from ER and reported no other symptoms besides those listed in the HPI> +Kusssmaul respirations, +Dry mucus membranes. LMP known to be 05/01/19. CXR completed in ER negative. Labs in ER showed hemoconcentration with WBC 21.26 , hgb 16.7, hct 51.3, plt 367. Sodium 136, K+ 4.37, Cl 106.9, CO2 <5.0, BUn 10.1, Cr 0.69 and glucose 229.4. ABG showed o2 99, ph 7.206, pc02 8.0, p02 180 , hc03 3.2. FIO2 21%. Serum negative. Alk phos mildly elevated at 179.1. Anion gap present. ABG interpreted as anion gap metabolic acidosis. Primary metabolic acidosis with secondary respiratory alkalosis and non gap metabolic acidosis present as well. pH is not less than 6.9. Her K+ is within 3.3 to 5.3 and we will add 20 meq of K+ per liter of fluids to keep her K+ 4-5. With hemoconcetration we will give her NaCl 1.0 L/hour. She will have blood glucose monitoring every hour, basic metabolic panel q 4 hours. UA C+S. REgular insulin to be given at ~0.05 units/kg/hour as her sugars are already ~ 200. Will plan to keep her 150-200 throughout this process. She was given rocehpin 1 gram, will continue this. Fluids in Er to be ran at 150mls/hour after 1L bolus. She was admitted to SCU for DKA. Dr. Coon called me at 22:00 with admission and she is being placed into inpatient status. NO urine yet. I will bolus another 1L. I will run remainder of current NS into her over next 1 hour and then I will change to D51/2NS at 250ml/hour when glucose ~200. We will get another ABG as well and continue to monitor the bmp. I will check ketones serum and when urinating we will check urine ketones as well. Repeat glucose 05/02/19 23:25 was 228. I ordered whole blood UDS but she was able to urinate at 11:50. Sipping on ice chips. Patient was seen in SCU 2 with mother. Patient is single, spent weekend at [facility] [employer] [facility]. She is sun burnt, she is visibly dehydrated, hemoconcentrated based on labs. Mother in room. Dx DM 1 at age of 10. Several DKA. Several severe issues with her glucose/hydration status. She started feeling really bad last night. Outside [employer] camping and not hydrating as much as she should. She had her insulin took this as normal Lantus 20 units q day and fast insulin 1:5 carb ratio. She started feeling terrible last night , breathing fast, could not catch breath. Discussed Kussmaal breathing. She awoke this am worse, nausea. Prominent fam hx of DM1, MGF and MGM. Awoke feeling worse as noted, she had missed calls from family. She came to ER today as he breathing was worsening and she was feeling very poorly. Nausea, abdominal pain, emesis. I did order serum acetone (small). Urine pending. Per mother patient is already looking more like herself. She nromally runs around 120lb and is now 115lb (54.2kg last check). - Review of Systems Constitutional: weakness, sweats, fatigue, loss of appetite. No: fever, chills , other Eyes: blurred vision, double-vision. No: discharge, itching, pain, redness, photophobia, other Ears: No: pain, bleeding, drainage, ringing, hearing loss, other Nose: No: bleeding, congestion, discharge, other Throat: No: pain, swelling, voice change, other Mouth: No: bleeding, pain, swelling, other Respiratory: shortness of air, other (kussmaal) Cardiovascular: No: chest pain, left arm pain, diaphoresis, PND, orthopnea, edema, palpitations, syncope, other Gastrointestinal: abdominal pain, nausea, vomiting. No: other, diarrhea, melena , hematemesis, hematochezia, dysphagia, constipation Genitourinary: other (anuria up until ~23:50 with urine output x 1. ). No: dysuria, hematuria, frequency, incontinence, flank pain, vaginal discharge, abnormal bleeding, pelvic pain Neurological: headache, dizziness, weakness. No: seizure, numbness, speech difficulty, problems with walking, tremor, fainting Musculoskeletal: pain. No: swelling in joints, other Skin: rash (sunburn). No: pruritus, lacerations, wounds, bruising, other Immunology: No: hives, itching, frequent infections, difficulty healing, other Hematology: No: easy bruising, easy bleeding, swollen glands, other Endocrine: weight changes, excessive thirst. No: excessive hunger Psychiatric: No: depression, anxiety, sleeplessness, hopelessness, suicidal, hallucinations, other Habits: No: tobacco use, substance use, alcohol use, other - Past Medical History Past Medical History: DM 1 dx age 10. History of DKA. History of nephrolithiasis. daughter at home with patient. - Past Surgical History Past Surgical History: Nephrolithiasis with lithotripsy - Allergies Allergies/Adverse Reactions: Allergies Allergy/AdvReac Type Severity Reaction Status Date / Time No Known Allergies Allergy Verified 05/02/19 20:45 - Medications Medications: Medications Generic Name Dose Route Start Last Admin Trade Name Freq PRN Reason Stop Dose Admin Sodium Chloride 1,000 mls @ 150 mls/hr 05/02/19 22:30 Sodium Chloride IV .Q6H40M TICO Ceftriaxone Sodium 1 gm/ 50 mls @ 75 mls/hr 05/02/19 22:30 Sodium Chloride IV 05/05/19 22:29 DAILY [facility] Insulin Human Regular 100 unit 100 mls @ 2 mls/hr 05/02/19 22:30 05/02/19 22: 41 / Sodium Chloride IV 2 unit/hr .Q24H TICO 2 mls/hr Administration Protocol 2 UNIT/HR Potassium Chloride/Dextrose/Sod Cl 1,000 mls @ 100 mls/hr 05/02/19 22:33 D5%-1/2ns-Kcl 20 Meq/L Iv Zeenat IV 05/03/19 08:32 .Q10H STA Non-Formulary Medication 1 each 05/03/19 09:00 Norgestimate-Ethinyl Estradiol [Tri-Sprintec Tablet] PO DAILY TICO Sodium Chloride 1 syr 05/02/19 20:56 Saline Flush IVF PRN PRN To flush IV - Family History Past Family History: MGM and MGF DM 1. Mother vitilgo. - Social History Past Social History: Single, child x1. . 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 No tobacco, no drugs , no ETOH. - Body Composition Height: 5 ft 3 in Weight: 115 lb 12.8 oz Body Mass Index (BMI): 20.5 - Physical Examination HEENT: Vital Signs - 24 hr 05/02/19 05/02/19 20:54 22:41 Temperature 97.9 F Pulse Rate 139 H 125 H Respiratory 22 21 Rate Blood Pressure 113/80 100/76 O2 Sat by Pulse 99 Oximetry Constitutional: Appearance-Moderate distress, Kussmaul breathing. Consistent with stated age. Orientation- Oriented x 3, alert GCS 15. Build and Nutrition-[ BMI normal] General- Patient is pleasant and cooperative with the interview and exam. I did not appreciate smell of ketones on patient. Integumentary: General-Sunburn face, arms, neck upper chest and legs. Palpation - Normal skin moisture/turgor. Skin is warm to touch, appropriate. Capillary refill is normal bilateral Upper and lower extremity. Head/Neck: Head- normocephalic and atraumatic. Neck- without visible/palpable lumps or pulsations. Palpation- No bony tenderness about head/neck along frontal, occipital, temporal, parietal, mastoid, jawline, zygoma, orbit or any other location. NO temporal artery tenderness. No TMJ tenderness. Neck Supple. Thyroid-No thyromegaly, no nodules Eye: Bilaterally PERRLA, EOMI. No discharge. Upper and lower eyelids are normal. Sclera/conjunctiva normal without discharge. Cornea is normal and clear. Lens is normal. Eyeball appears normal. No ciliary flushing, no conjunctival injection. ENMT: Pinna- normal without tenderness or erythema. External auditory canal Left- normal without erythema or discharge, no excessive cerumen. External auditory canal Right-normal without erythema or discharge, no excessive cerumen. TM left- Mix/pearly, normal light reflex and anatomy TM Right- Mix/ pearly, normal light reflex and anatomy Hearing Assessment-normal to conversational speech. Nose and sinus- No sinus tenderness along frontal/ maxillary region. External appearance normal and midline. Nares- bilateral quiet airflow, no discharge. Nasal mucosa- No bleeding noted and no ulcerations observed. [place], moist. Turbinates non boggy. Lips- normal color, moist without cracks/lesions Oral Cavity/Palate- hard/soft palate intact without lesions, oral mucosa pink and moist. Dentition assessed and discussed appropriate oral care. Tongue normal midline. Oropharynx- no pharyngeal erythema, Uvula midline. No post nasal drip. No exudate. Salivary glands- Non tender to palpation CHEST/LUNG: Inspection- symmetric chest wall no pectus deformity. Normal effort , no distress, no use of accessory muscles. Palpation- nontender sternum, ribline. No abnormal pulsations. Auscultation- Breath sounds full. Deep inspiration/expiration. Normal tracheal sounds, Normal bronchial sounds overlying sternum, Bronchovessicular sounds normal between scapulae posteriorly , Normal vessicular breath sounds heard throughout periphery. Lungs are clear today. Adventitious sounds- No wheezes, rales, rhonchi. CARDIOVASCULAR: Carotid artery- normal, no bruits or abnormal pulsations. Jugular vein- no pulsations. Palpation/Percussion- Normal PMI, no palpable thrill Auscultation- Tachycardic with normal rhythm. No murmur noted in sitting, supine positions. Extremities- no digital clubbing, cyanosis, edema, increased warmth. ABDOMEN: Inspection- normal and no visible pulsations. Normal contour. Auscultation- Bowel sounds normal, no abdominal bruits. Palpation/Percussion- soft, non-tender, no rebound tenderness, no rigidity (guarding), no jar tenderness, no masses. Liver-no hepatomegaly, Spleen no splenomegaly, Hernias - none. Rectal not examined. Peripheral Vascular: Upper extremity Left- Normal temperature with pink nailbeds and no ulcerations. Upper extremity Right- Normal temperature with pink nailbeds and no ulcerations. Lower extremity- Normal temperature with pink nailbeds and no ulcerations. DP pulses 2+ bilaterally. Pedal hair intact. Normal capillary refill. Edema- No edema. Musculoskeletal: Generalized-No generalized swelling or edema of extremities, no digital clubbing or cyanosis, neurovascularly intact all four extremities. Upper extremity- Symmetrical posture. No visible deformity. Normal sensation along medial and lateral upper extremity proximally and distally. NO tenderness overlying shoulder, lateral/medial epicondyle. Manager Enrollment 5/5 and strength 5/5 bilateral UE. Elbow palpated, no tenderness overlying olecranon. Normal supination, pronation to active/passive ROM and to resisted rotation. Bicep insertion/tricep insertion appear normal without obvious pathology. Rotator cuff evaluated and intact. Normal wrist ROM bilaterally. Normal hand movement, intrinsic muscles of hands normal. No tenderness to palpation of hands/wrists/ elbows. Lower extremity- Hip: Not tender to palpation, no pain, no swelling, edema or erythema of surrounding tissue, normal strength and tone. Normal appearing hip ROM bilaterally without pain. Knee: Knee ROM normal. No tenderness overlying trochanters, no tenderness about patella, quad tendon, patellar tendon. No tenderness at tibial tuberosity. Spine/Ribs- No deformities, masses or tenderness, no known fractures, normal strength, Normal ROM. Normal stability No tenderness along C/T/L spine. Normal appearing ROM about spine. Neurological: General- Moves all 4 extremities symmetrically. Symmetrical face and body posture. Cranial nerves- individually evaluated II-XII and intact. PERRLA, Normal EOMI, visual/special senses appear intact, Face is symmetrical and normal sensation/movement, normal tongue, normal strength/posture of neck musculature. Reflexes- intact with DTR 2+ patellar, Achilles, bicep, brachial, tricep. Ankle clonus normal with 2 beats. Strength- 5/5 bilateral UE and LE. Soft touch- intact bilateral UE and LE. Temperature sensation- intact bilateral UE and LE. Neuropsych: Oriented- Person, place, time. (AAOx3), Mood/affect- normal and congruent. Able to articulate well. Speech-Normal speech, normal rate, normal tone, normal use of language, volume and coherence. Thought content- normal with ability to perform basic computations and apply abstract thought/reason. Associations- intact, no SI/HI, no hallucinations, delusions, obsessions. Judgment/insight- Appropriate. Memory-Recall intact, remote and recent memory intact. Knowledge- Age appropriate fund of knowledge, concentration and attention span normal. Lymphatic: Head/Neck- normal size and non tender to palpation. Axillary- normal size and non tender to palpation. Femoral and Inguinal- normal size and non tender to palpation. - Lab/Tests/Diagnostic Imaging Lab/Tests/Diagnostic Imaging: Laboratory Last Values WBC 21.26 K/ul (4.6-10.2) H 05/02/19 21:30 RBC 5.50 10^6/ul (4.20-5.40) H 05/02/19 21:30 Hgb 16.7 g/dl (12.0-16.0) H 05/02/19 21:30 Hct 51.3 % (37.0-47.0) H 05/02/19 21:30 MCV 93.3 fl (81.0-99.0) 05/02/19 21:30 MCH 30.4 pg (27.0-31.0) 05/02/19 21: MCHC 32.6 (31.8-35.4) 05/02/19 21:30 RDW Coeff of Ion 13.2 % (11.6-14.8) 05/02/19 21:30 Plt Count 367 10^3/uL (140-440) 05/02/19 21:30 Immature Gran % (Auto) 1.1 % (0.0-5.0) 05/02/19 21:30 Neut % (Auto) 75.2 05/02/19 21:30 Lymph % (Auto) 15.8 (10.0-50.0) 05/02/19 21:30 [place] % (Auto) 7.2 (0-10) 05/02/19 21:30 Eos % (Auto) 0.1 % (0.0-7.0) 05/02/19 21:30 Baso % (Auto) 0.6 % (0.0-3.0) 05/02/19:30 Immature Gran # (Auto) 0.2 (0.0-1.0) 05/02/19 21:30 Neut # (Auto) 16.0 K/ul (2.0-6.9) H 05/02/19 21:30 Lymph # (Auto) 3.4 K/uL (0.60-3.4) 05/02/19 21:30 [place] # (Auto) 1.5 K/uL (0.4-2.0) 05/02/19 21:30 Eos # (Auto) 0.0 K/ul (0.0-0.7) 05/02/19 21:30 Baso # (Auto) 0.1 K/uL (0-0.2) 05/02/19 21:30 Puncture Site Lb 05/02/19 20:56 O2 Saturation 99.0 % (95-100) 05/02/19 20:56 ABG pH 7.206 (7.35-7.45) L* 05/02/19 20:56 ABG pCO2 8.0 mmHg (35-45) L 05/02/19 20:56 ABG pO2 180.0 mmHg (85-100) H 05/02/19 20:56 ABG HCO3 3.2 (22.0-26.0) L 05/02/19 20:56 ABG Total CO2 5 (22.0-28.0) L 05/02/19 20:56 ABG Base Excess -25 (-2.0-2.0) L 05/02/19 20:56 Ricky Test + 05/02/19 20:56 FiO2 % 21.0 % 05/02/19 20:56 Sodium 136.0 mmol/L (134.5-145) 05/02/19 21:30 Potassium 4.37 mmol/L (3.5-5.1) 05/02/19 21:30 Chloride 106.9 mmol/L (98-107) 05/02/19 21:30 Carbon Dioxide < 5.0 mmol/L (22-30.0) L* 05/02/19 21:30 Anion Gap 28.29371 05/02/19 21:30 BUN 10.1 mg/dL (7-17) 05/02/19 21:30 Creatinine 0.69 mg/dL (0.60-1.30) 05/02/19 21:30 Estimated GFR (MDRD) 106.00 mL/min 05/02/19 21:30 BUN/Creatinine Ratio 14.63 05/02/19 21:30 Glucose 229.4 mg/dL (74-106) H 05/02/19 21:30 Calcium 9.55 mg/dL (8.4-10.2) 05/02/19 21:30 Total Bilirubin 0.53 mg/dL (0.2-1.3) 05/02/19 21:30 AST 27.7 U/L (14-36) 05/02/19 21:30 ALT 27.4 U/L (0-35) 05/02/19 21:30 Alkaline Phosphatase 179.1 U/L (38-126) H 05/02/19 21:30 Total Protein 8.22 g/dL (6.3-8.2) H 05/02/19 21: Albumin 4.79 g/dL (3.5-5.0) 05/02/19 21: Globulin 3.43 05/02/19 21: Albumin/Globulin Ratio 1.39 05/02/19 21:30 Serum , Qual Negative (NEGATIVE) 05/02/19 21:30 Urine Color Yellow (YELLOW) 05/02/19 23:40 Urine Clarity Hazy (CLEAR) 05/02/19 23:40 Urine pH 5.5 (5-9) 05/02/19 23:40 Ur Specific [place] >=1.030 (1.005-1.030) 05/02/19 23:40 Urine Protein 3+ (NEGATIVE) 05/02/19 23:40 Urine Glucose (UA) 2+ (NEGATIVE) 05/02/19 23:40 Urine Ketones 4+ (NEGATIVE) 05/02/19 23:40 Urine Blood 1+ (NEGATIVE) 05/02/19 23:40 Urine Nitrite Negative (NEGATIVE) 05/02/19 23:40 Urine Bilirubin 1+ (NEGATIVE) 05/02/19 23:40 Urine Urobilinogen 0.2 (0.2) 05/02/19 23:40 Ur Leukocyte Esterase Negative (NEGATIVE) 05/02/19 23:40 Urine Microscopic RBC 2-5 (0-2) 05/02/19 23:40 Urine Microscopic WBC 0-2 (0-2) 05/02/19 23:40 Ur Squamous Epith Cells 2-5 (0-5) 05/02/19 23:40 Amorphous Sediment Trace (NOT PRESENT) 05/02/19 23:40 Granular Casts 0-2 (NOT PRESENT) 05/02/19 23:40 Fine Granular Casts 0-2 (NOT PRESENT) 05/02/19 23:40 Urine Opiates Screen Negative (NEGATIVE) 05/02/19 23:40 Ur Oxycodone Screen Negative (NEGATIVE) 05/02/19 23:40 Urine Methadone Screen Negative (NEGATIVE) 05/02/19 23:40 Ur Propoxyphene Screen Negative (NEGATIVE) 05/02/19 23:40 Ur Barbiturates Screen Negative (NEGATIVE) 05/02/19 23:40 U Tricyclic Antidepress Negative (NEGATIVE) 05/02/19 23:40 Ur Phencyclidine Scrn Negative (NEGATIVE) 05/02/19 23:40 Ur Amphetamine Screen Negative (NEGATIVE) 05/02/19 23:40 U Methamphetamines Scrn Negative (NEGATIVE) 05/02/19 23:40 U Benzodiazepines Scrn Negative (NEGATIVE) 05/02/19 23:40 Urine Cocaine Screen Negative (NEGATIVE) 05/02/19 23:40 U Cannabinoids Screen Positive (NEGATIVE) 05/02/19 23:40 Acetone, Qual Small (NONE) 05/02/19 21:30 - Assessment (1) Dehydration Status: Acute Code(s): E86.0 - DEHYDRATION SNOMED Code(s): 32020091 (2) Burn from the sun Status: Acute Code(s): L55.9 - SUNBURN, UNSPECIFIED SNOMED Code(s): 93804731 (3) DKA (diabetic ketoacidoses) Status: Acute Code(s): E13.10 - OTH DIABETES MELLITUS WITH KETOACIDOSIS WITHOUT COMA SNOMED Code(s): 079898652, 843841236 Qualifiers: Diabetes mellitus type: type 1 Diabetes mellitus complication detail: without coma Qualified Code(s): E10.10 - Type 1 diabetes mellitus with ketoacidosis without coma (4) Diabetes mellitus type 1, uncontrolled, insulin dependent Status: Acute Code(s): E10.65 - TYPE 1 DIABETES MELLITUS WITH HYPERGLYCEMIA SNOMED Code(s): 614966910, 933979618 - Plan Plan: DKA/Dehydration: Diagnostic criteria for DKA glucose >250, arterial pH <7.3, serum bicarb <18mEq/L and moderate ketonuria. She has not yet urinated. We are fluid hydrating her as she has dehydration on top of these processes. After the history/exam ER attempted to get glucose, ketone eval. She was given 1L of NS over 1 hour and ABG, CBC w/ diff, (unable to get UA), glucose, BUN, CMP ordered. EKG ordered. She was found to be in Kussmaul respirations, ABG with prominent metabolic acidosis with respiratory alkalosis. Sodium corrected to 139. I have asked for another accucheck, I will get another ABG 2 hours after initial. It appears that her sugars are already <250. I will change he fluids to d51/2 NS+20KCL- with goal to keep K+ 4-5. End goals for patient will be resolution of the ketoacidos once the anion gap normalizes to <12.0. I do not have access to Beta-hydroxybutyrate levels. When able to eat that is another sign of improvement. I received call from floor nurse at 11:23 patient requesting food. I suspect large part of her presentation was sunburn and dehydration with some overlying hyperglycemia. Again, I have no ketones as of yet, but she is anuric. With inability to check BHB levels directly, we will use anion gap as means of monitoring the improvement. - Admit inpatient status to SCU - UDS - Telemetry - Q4 hour BMP - Q 1 hour accucheck - 1L per hour NS until gone then change to D5 1/2NS as glucose is hovering ~ 220. Due for repeat 00:00 - REpeat ABG now - A1C: (RETUNRED 13.74) - CBC in am. - Water/ice chips okay Tachycardia: Suspect part of the dehydration. We will work on fluid hydration and f/u with results. - Telemetry Sunburn: Recommended at length sunscreen. Sun precaution discussed with the patient today. It is important to remember palma to health skin is protection and prevention. Sunburns and tans are as bad to your skin as tobacco is to your lungs. The younger you are the more vulnerable your skin may potentially be. Likewise, the younger you are, the more important it is to protect your skin, it is never too late to start protecting your skin. The Best sun protection is not being out in the sun. Try to avoid sun 10am-2pm when UVB rays are highest. Use shade when available, wear sun protective clothing/hats, apply sun block on all sun exposed areas including ears and reapply every 2 hours to maximize the protection. Use sun block with zinc oxide or titanium dioxide. Protect lips with sun block lip balm. These recommendations are not just for summer months as UVB is present all year long. Use SPF 30 or higher broad spectrum sun block. Check skin for moles and report any suspicious or changing lesions to provider. Dehydration: Normal weight ~120, may be 3-5 lb low. She has received ~2L of fluids so far, improving. Diet: 1800 kcal ADA diet in am. NPO tonight DVT Prophy: Lovenox 40mg subcut today. Disposition: She meets definition of DKA but borderline. More likely, she is dehydrated with significant sunburn and lack of fluid intake over last few days. Weight may be 3-5 lb low. I will follow her accucheck. Fluids running. I will pattern changer and repairer her fluids from NS once the second liter is complete. Her corrected sodium was normal and thus she should be on 1/2NS +20 K. Goal keep K+ 4-5, keep her at 250ml hour of fluids. Typically when sugars < 200 d51/2NS is recommended. She did have small acetone, she was able to urinate and thus this appears to be improving. Breathing is improving, she is a lot more comfortable. HEr A1C returned at 13.74, suggesting this is not well controlled. >70 minutes spent with patient and evaluating her status, monitor tele, d/w Dr. Coon personally, talked with Rene orosco as well.
[2019-05-03] MEDS: D5%-1/2NS-KCL 20 MEQ/L IV SOL 1,000 ML IV STA ×2 (00:36→05:02)
[2019-05-03] MEDS ORDERED: ROCEPHIN ONE (00:43)
[2019-05-03] MEDS: LOVENOX SUBCUT SCH ×2 (00:54→08:31)
[2019-05-03] MEDS ORDERED: ZOFRAN 4 MG/2 ML IVP PRN (00:58)
[2019-05-03] MEDS ORDERED: HUMULIN R 100 UNIT in SODIUM CHLORIDE 100 ML IV SCH ×2 (03:37→06:17)
[2019-05-03] MEDS: CALCIUM 500 + VIT D 200 MG TABLET PO SCH ×2 (08:31→20:45)
[2019-05-03] MEDS: NORGESTIMATE ETHINYL ESTRADIOL PO SCH (08:32)
--- NOTE | 2019-05-03 10:48 | PCM.PROG ---
Subjective: 24 yo F HD #2 DKA/Dehydration/Sunburn/DM 1 poorly controlled A1C 13.76. She has received 2 L NS and then her glucose was borderline 200-225 and we decided to use d5 1/2 NS with +20K+Cl-. Reviewed overnight telemetry, reviewed ABG from patient 20:56, 0100 0554 and a chart was made (see below). WBC 18.73 down from 21.26, hgb 13.4 down from 16.7, plt 292 down from 367. I received call 01:30 ABGPH7.13, pCo2 13, asked if I wanted bicarb and I noted that I did not want to add bicarb if PH remains >6.9. RR 22 and HR 120 at that time. Fluids running nicely. I received call 02:09 with repeat ABG values as listed. I received call this am 06:15 BG 148. I had them drop the insulin drip to 3 units with goal to keep glucose 150-200. Her UDS returned as +THC. Nausea worsened and zofran was given. BMP reviewed this am. BMP continue q 4 hours. 01:00 sodium 138, K+ 4.12, cl 113.8, co2 <5, Gap 23.32, creatinine 0.58, calcium low at 8.35. BMP at 0500 this am showed sodium 136.1, potassium 3.95, Cl 113.6, CO2 9.1, gap 17.35, bun6.9, cr 0.48. Calcium 8.29. CMP at 09:05 sodium 134.9, K+ 3.66, cl 112.9, CO2 10.8, Gap 14.86. Cr 0.41. Calcium 8.48. I have ordered repeat UA, I have added calcium carbonate + Vit D BID PO (see orders) to replace calcium. I have also checked magnesium. Overnight tele showed Sinus tachy. I have reviewed her EKG, nothing concerning. Nausea with breakfast. She did not want it, she ate 95% of her lunch. Kussmaal breathing has resolved. Still tachycardic. She has not had BM. Weight 2306 by Rene Dailey 119lb up from 115lb. The computer duplicated the weight under my name. Patient was seen at 07:00 this am, 12:20 this pm, 14:00 this pm. BMP returned 13:05 sodiumd 134.4, K+ improving to 3.73, cl 111.5 continued to decrease, co2 incerased from 10.8 to 14.3 and gap decreased from 14.86 to 12.33. Glucose remained ~250. Mag returned 1.74. Calcium improved and stabilized was 8.47 this check. She noted improvement with each of the visits. Nobody else in room. She was asleep upon entry and easily awoken. Breathing markedly more calmly, no odor of ketones. She has fluids running left AC. Has been getting rocephin daily. Today is day 2. Lunch time, nibbling on food, still some nausea. This pm she was more alert, feeling better. Labs improving. Abx: Rocephin Day 2. Accuchecks: 228/208/197/226/245/217/224/148. Review of Systems Constitutional: weakness, sweats, fatigue, loss of appetite. No: fever, chills , other Eyes: blurred vision, No: double-vision, discharge, itching, pain, redness, photophobia, other Ears: No: pain, bleeding, drainage, ringing, hearing loss, other Nose: No: bleeding, congestion, discharge, other Throat: No: pain, swelling, voice change, other Mouth: No: bleeding, pain, swelling, other Respiratory: No shortness of air, other (kussmaal resolved) Cardiovascular: No: chest pain, left arm pain, diaphoresis, PND, orthopnea, edema, palpitations, syncope, other Gastrointestinal: nausea No: abdominal pain,vomiting. other, diarrhea, melena , hematemesis, hematochezia, dysphagia, constipation Genitourinary: No: dysuria, hematuria, frequency, incontinence, flank pain, vaginal discharge, abnormal bleeding, pelvic pain Neurological: headache, dizziness, weakness. No: seizure, numbness, speech difficulty, problems with walking, tremor, fainting Musculoskeletal: pain. No: swelling in joints, other Skin: rash (sunburn). No: pruritus, lacerations, wounds, bruising, other Immunology: No: hives, itching, frequent infections, difficulty healing, other Hematology: No: easy bruising, easy bleeding, swollen glands, other Endocrine: weight changes, excessive thirst. No: excessive hunger Psychiatric: No: depression, anxiety, sleeplessness, hopelessness, suicidal, hallucinations, other Habits: substance use (THC), No: tobacco use, alcohol use, other Objective: Vital Signs - 24 hr 05/02/19 05/02/19 05/02/19 20:54 22:41 23:06 Temperature 97.9 F 97.7 F Pulse Rate 139 H 125 H 125 H Pulse Rate [ Left Radial] Respiratory 22 21 32 H Rate Blood Pressure 113/80 100/76 O2 Sat by Pulse 99 99 Oximetry 05/03/19 05/03/19 05/03/19 05:19 08:00 14:00 Temperature 98.1 F 98.9 F Pulse Rate 116 H 118 H Pulse Rate [ 111 H Left Radial] Respiratory 13 18 Rate Blood Pressure 116/66 126/76 O2 Sat by Pulse 99 99 Oximetry Constitutional: Appearance-Now without distress, Kussmaul breathing resolved Asleep on entry. Consistent with stated age. Orientation- Oriented x 3, alert GCS 15. Build and Nutrition-[BMI normal] General- Patient is pleasant and cooperative with the interview and exam. Seen 0700 12;20 and early pm today. Asleep on entry #1 but then awake and alert visits #2 and #3. Integumentary: General-Face less flushed, less red. Sunburn face arms, neck upper chest and legs. Palpation- Normal skin moisture/turgor. Skin is warm to touch, appropriate. Capillary refill is normal bilateral Upper and lower extremity. Head/Neck: Head- normocephalic and atraumatic. Neck- without visible/palpable lumps or pulsations. Palpation- No bony tenderness about head/neck along frontal, occipital, temporal, parietal, mastoid, jawline, zygoma, orbit or any other location. NO temporal artery tenderness. No TMJ tenderness. Neck Supple. Thyroid-No thyromegaly, no nodules ENMT: Nares- bilateral quiet airflow, no discharge. Nasal mucosa- No bleeding noted and no ulcerations observed. [place], moist. Turbinates non boggy. Lips- normal color, moist without cracks/lesions Oral Cavity/Palate- hard/soft palate intact without lesions, oral mucosa pink and moist. Dentition assessed and discussed appropriate oral care. Tongue normal midline. Oropharynx- no pharyngeal erythema, Uvula midline. No post nasal drip. No exudate. Salivary glands- Non tender to palpation. Moist mucus membranes. CHEST/LUNG: Inspection- symmetric chest wall no pectus deformity. Normal effort , no distress, no use of accessory muscles. Palpation- nontender sternum, ribline. No abnormal pulsations. Auscultation- Breath sounds full. Deep inspiration/expiration. Normal tracheal sounds, Normal bronchial sounds overlying sternum, Bronchovessicular sounds normal between scapulae posteriorly , Normal vessicular breath sounds heard throughout periphery. Lungs are clear today. Adventitious sounds- No wheezes, rales, rhonchi. Calm breathing, markedly better than last night. RR stable. CARDIOVASCULAR: Carotid artery- normal, no bruits or abnormal pulsations. Jugular vein- no pulsations. Palpation/Percussion- Normal PMI, no palpable thrill Auscultation- Tachycardia persists with normal rhythm. No murmur noted in sitting, supine positions. Extremities- no digital clubbing, cyanosis, edema, increased warmth. ABDOMEN: Inspection- normal and no visible pulsations. Normal contour. Auscultation- Bowel sounds normal, no abdominal bruits. Palpation/Percussion- soft, non-tender, no rebound tenderness, no rigidity (guarding), no jar tenderness, no masses. Peripheral Vascular: Upper extremity Left- Normal temperature with pink nailbeds and no ulcerations. Upper extremity Right- Normal temperature with pink nailbeds and no ulcerations. Lower extremity- Normal temperature with pink nailbeds and no ulcerations. DP pulses 2+ bilaterally. Pedal hair intact. Normal capillary refill. Edema- No edema. Musculoskeletal: Generalized-No generalized swelling or edema of extremities, no digital clubbing or cyanosis, neurovascularly intact all four extremities. Neurological: General- Moves all 4 extremities symmetrically. Symmetrical face and body posture. Cranial nerves- individually evaluated II-XII and intact. PERRLA, Normal EOMI, visual/special senses appear intact, Face is symmetrical and normal sensation/movement, normal tongue, normal strength/posture of neck musculature. Neuropsych: Oriented- Person, place, time. (AAOx3), Mood/affect- normal and congruent. Able to articulate well. Speech-Normal speech, normal rate, normal tone, normal use of language, volume and coherence. Thought content- normal with ability to perform basic computations and apply abstract thought/reason. Associations- intact, no SI/HI, no hallucinations, delusions, obsessions. Judgment/insight- Appropriate. Memory-Recall intact, remote and recent memory intact. Knowledge- Age appropriate fund of knowledge, concentration and attention span normal. Lymphatic: Head/Neck- normal size and non tender to palpation. Laboratory Last Values WBC 18.73 K/ul (4.6-10.2) H 05/03/19 05:00 RBC 4.37 10^6/ul (4.20-5.40) 05/03/19 05:00 Hgb 13.4 g/dl (12.0-16.0) D 05/03/19 05:00 Hct 39.7 % (37.0-47.0) D 05/03/19 05:00 MCV 90.8 fl (81.0-99.0) 05/03/19 05:00 MCH 30.7 pg (27.0-31.0) 05/03/19 05:00 MCHC 33.8 (31.8-35.4) 05/03/19 05:00 RDW Coeff of Ion 13.2 % (11.6-14.8) 05/03/19 05:00 Plt Count 292 10^3/uL (140-440) 05/03/19 05:00 Immature Gran % (Auto) 0.8 % (0.0-5.0) 05/03/19 05:00 Neut % (Auto) 76.6 05/03/19 05:00 Lymph % (Auto) 15.0 (10.0-50.0) 05/03/19 05:00 [place] % (Auto) 7.2 (0-10) 05/03/19 05:00 Eos % (Auto) 0.1 % (0.0-7.0) 05/03/19 05:00 Baso % (Auto) 0.3 % (0.0-3.0) 05/03/19 05:00 Immature Gran # (Auto) 0.2 (0.0-1.0) 05/03/19 05:00 Neut # (Auto) 14.4 K/ul (2.0-6.9) H 05/03/19 05:00 Lymph # (Auto) 2.8 K/uL (0.60-3.4) 05/03/19 05:00 [place] # (Auto) 1.4 K/uL (0.4-2.0) 05/03/19 05:00 Eos # (Auto) 0.0 K/ul (0.0-0.7) 05/03/19 05:00 Baso # (Auto) 0.1 K/uL (0-0.2) 05/03/19 05:00 Puncture Site r brach 05/03/19 07:14 O2 Saturation 97.0 % (95-100) 05/03/19 07:14 ABG pH 7.25 (7.35-7.45) L* 05/03/19 07:14 ABG pCO2 28.3 mmHg (35-45) L 05/03/19 07:14 ABG pO2 108.0 mmHg (85-100) H 05/03/19 07:14 ABG HCO3 12.5 (22.0-26.0) L 05/03/19 07:14 ABG Total CO2 13 (22.0-28.0) L 05/03/19 07:14 ABG Base Excess -15 (-2.0-2.0) L 05/03/19 07:14 Ricky Test + 05/03/19 07:14 O2 Delivery Device ra 05/03/19 07:14 FiO2 % 21.0 % 05/03/19 07:14 Sodium 134.4 mmol/L (134.5-145) L 05/03/19 13:05 Potassium 3.73 mmol/L (3.5-5.1) 05/03/19 13:05 Chloride 111.5 mmol/L (98-107) H 05/03/19 13:05 Carbon Dioxide 14.3 mmol/L (22-30.0) L 05/03/19 13:05 Anion Gap 12.33 05/03/19 13:05 BUN 4.8 mg/dL (7-17) L 05/03/19 13:05 Creatinine 0.57 mg/dL (0.60-1.30) L 05/03/19 13:05 Estimated GFR (MDRD) 133.00 mL/min 05/03/19 13:05 BUN/Creatinine Ratio 8.42 05/03/19 13:05 Glucose 250.9 mg/dL (74-106) H 05/03/19 13:05 Hemoglobin A1c 13.74 (4.0-6.0) H 05/02/19 21:30 Calcium 8.47 mg/dL (8.4-10.2) 05/03/19 13:05 Magnesium 1.74 mg/dL (1.6-2.3) 05/03/19 13:05 Total Bilirubin 0.53 mg/dL (0.2-1.3) 05/02/19 21:30 AST 27.7 U/L (14-36) 05/02/19 21:30 ALT 27.4 U/L (0-35) 05/02/19 21:30 Alkaline Phosphatase 179.1 U/L (38-126) H 05/02/19 21:30 Total Protein 8.22 g/dL (6.3-8.2) H 05/02/19 21:30 Albumin 4.79 g/dL (3.5-5.0) 05/02/19 21:30 Globulin 3.43 05/02/19 21:30 Albumin/Globulin Ratio 1.39 05/02/19 21:30 Serum , Qual Negative (NEGATIVE) 05/02/19 21:30 Urine Color Yellow (YELLOW) 05/02/19 23:40 Urine Clarity Hazy (CLEAR) 05/02/19 23:40 Urine pH 5.5 (5-9) 05/02/19 23:40 Ur Specific [place] >=1.030 (1.005-1.030) 05/02/19 23:40 Urine Protein 3+ (NEGATIVE) 05/02/19 23:40 Urine Glucose (UA) 2+ (NEGATIVE) 05/02/19 23:40 Urine Ketones 4+ (NEGATIVE) 05/02/19 23:40 Urine Blood 1+ (NEGATIVE) 05/02/19 23:40 Urine Nitrite Negative (NEGATIVE) 05/02/19 23:40 Urine Bilirubin 1+ (NEGATIVE) 05/02/19 23:40 Urine Urobilinogen 0.2 (0.2) 05/02/19 23:40 Ur Leukocyte Esterase Negative (NEGATIVE) 05/02/19 23:40 Urine Microscopic RBC 2-5 (0-2) 05/02/19 23:40 Urine Microscopic WBC 0-2 (0-2) 05/02/19 23:40 Ur Squamous Epith Cells 2-5 (0-5) 05/02/19 23:40 Amorphous Sediment Trace (NOT PRESENT) 05/02/19 23:40 Granular Casts 0-2 (NOT PRESENT) 05/02/19 23:40 Fine Granular Casts 0-2 (NOT PRESENT) 05/02/19 23:40 Urine Opiates Screen Negative (NEGATIVE) 05/02/19 23:40 Ur Oxycodone Screen Negative (NEGATIVE) 05/02/19 23:40 Urine Methadone Screen Negative (NEGATIVE) 05/02/19 23:40 Ur Propoxyphene Screen Negative (NEGATIVE) 05/02/19 23:40 Ur Barbiturates Screen Negative (NEGATIVE) 05/02/19 23:40 U Tricyclic Antidepress Negative (NEGATIVE) 05/02/19 23:40 Ur Phencyclidine Scrn Negative (NEGATIVE) 05/02/19 23:40 Ur Amphetamine Screen Negative (NEGATIVE) 05/02/19 23:40 U Methamphetamines Scrn Negative (NEGATIVE) 05/02/19 23:40 U Benzodiazepines Scrn Negative (NEGATIVE) 05/02/19 23:40 Urine Cocaine Screen Negative (NEGATIVE) 05/02/19 23:40 U Cannabinoids Screen Positive (NEGATIVE) 05/02/19 23:40 Acetone, Qual Small (NONE) 05/02/19 21:30 Miscellaneous Test Sent to [facility] 05/02/19 21:30 ABG TABLE 20:56 1:00 5:54 pH 7.206 7.13 7.196 PC02 8 13 25.9 HCO3 3.2 4.3 10 Base Excess -25 -25 -18 Allens Test + + + Po2 180 127 111 (1) Dehydration Status: Acute Code(s): E86.0 - DEHYDRATION SNOMED Code(s): 52983637 (2) Burn from the sun Status: Acute Code(s): L55.9 - SUNBURN, UNSPECIFIED SNOMED Code(s): 12230777 (3) DKA (diabetic ketoacidoses) Status: Acute Code(s): E13.10 - OTH DIABETES MELLITUS WITH KETOACIDOSIS WITHOUT COMA SNOMED Code(s): 106978913 (4) Hypocalcemia Status: Acute Code(s): E83.51 - HYPOCALCEMIA SNOMED Code(s): 9460723 (5) Tachycardia Status: Acute Code(s): R00.0 - TACHYCARDIA, UNSPECIFIED SNOMED Code(s): 2330106 (6) Diabetes mellitus type 1, uncontrolled, insulin dependent Status: Acute Code(s): E10.65 - TYPE 1 DIABETES MELLITUS WITH HYPERGLYCEMIA SNOMED Code(s): 616765826 Plan: DKA/Dehydration/DM1 poorly controlled: Improving, Gap is closing, urinating, fluids running at D5 1/2 NS +20 KCL 250/hour. Started calcium +D BID. REpeat Urine ordered. She is improving with the current plan. A1C returned as markedly elevated. Potassium is stable. Goal 4-5. We will continue q4 hour BMP. Continue Q 1 hour Accucheck. ABG this pm f/u with results. - Admit inpatient status to SCU - UDS - Telemetry - Q4 hour BMP - Q 1 hour accucheck titrate drip to glucose 150-200 - 1L per hour NS until gone then change to D5 1/2NS as glucose is hovering ~ 220. Due for repeat 00:00 - REpeat ABG ~1700 today - A1C: (RETUNRED 13.74) - CBC in am. - Fluids D5 1/2NS +20meqKCL Tachycardia: Suspect dehydration. Monitored tele. We will work on fluid hydration and f/u with results. - Telemetry Hypocalcemia: Will add Calcium Carbonate +Vit D 500mg BID - Calcium+VitD 500 BID. Sunburn: Monitor/healing. Dehydration: Normal weight ~120, was 119 last check. Diet: 1800 kcal ADA diet in am. NPO tonight DVT Prophy: Lovenox 40mg subcut today. Disposition: She continues to improve. The Gap is closing. She ate some of lunch. Repeat UA ordered to evaluate for ketones. Suspect discharge home in 24 -48 hours if she continues to improve. Lovenox for DVT prophy. She feels she is happy with progress. Breathing has improved, she is a lot more comfortable. HEr A1C returned at 13.74, suggesting this is not well controlled. >35 minutes spent with patient today, checked on her 3x this day. Reviewed labs/telemetry/ accucheck/ABG. Indepdendent interpretation of ABG.
[2019-05-03] MEDS ORDERED: D5%-1/4NS-KCL 20 MEQ/L IV SOL 1,000 ML IV SCH (11:30)
[2019-05-03] MEDS: D5%-1/2NS-KCL 20 MEQ/L IV SOL 1,000 ML IV SCH ×3 (11:33→22:11)
[2019-05-03] MEDS: ROCEPHIN 1 GM in SODIUM CHLORIDE 50 ML IV SCH (20:45)
[2019-05-04] MEDS ORDERED: HUMULIN R 100 UNIT in SODIUM CHLORIDE 100 ML IV SCH (02:15)
[2019-05-04] MEDS ORDERED: HUMULIN R ONE (02:21)
[2019-05-04] MEDS: D5%-1/2NS-KCL 20 MEQ/L IV SOL 1,000 ML IV SCH ×2 (03:03→07:58)
--- NOTE | 2019-05-04 07:11 | PCM.PROG ---
Subjective: 24 yo female patient of [facility] HD #3 with DKA/Dehydration/Poorly controlled DM1/Sunburn. Not on abx. Am labs showed CBC to have markedly improved. WBC now down to 9.74 from 18.73 on last check. Her Hgb has dropped to 12.7 from 13.4 previous check. Plt 243 down from 292 previously. ABG this am has her PH at 7.387, pC02 up to 33.1, po2 49, hc03 19.9. Base excess of -5. ABG 13:14 yesterday showed pH 7.313, pco2 30, po2 108, hc03 15.2 (see chart below). She has had decreased K+ through this stay despite addition of her K+ to the fluids, I did add PO K+CL yesterday to be given 2x daily. Calcium has returned to normal of 8.93 at 0100 this am and then 8.5 0500. Her K+ did drop to 2.95 and then back up to 3.12 today. I will stop her drip today. I will have q 3 hour accucheck, increase lantus to 40, from 20 and give her basal bolus insulin. She has needed between 60-72 units total of insulin. We will check CMP again at 1300, stop q 1 hours accuchecks and advance to q 3 hours. She will get 5 units of humalog with each meal. Will continue to correct. Reassess daily insulin tomorrow and likely d/c tomorrow if still doing well. Second urine yesterday had small ketones, 2+ blood. She has had good urine output. She has not had a recorded BM here. Meals consumed yesterday 100% x 2, 95% x 1. Vitals reviewed and her HR remains tachycardic, temp normal, o2 98- 100 on RA. RR 16-22. Kussmall breathing has ceased as of 05/03/19. BP is stable. Accucheck 05/03/19: 197/226/245/217/224/148/98/156/202/298/224/213/242/200/169/157/154/191/215/183/ 243/170/152 Accucheck 05/04/19: 129/168/186/159/157/142/122. For today I will increase her lantus to 40 (was 20 at home). She was doing 1:5 ratio for lunch. I will give 5 units base and have her adjust same way when she d/c home. For today 5 base and we will continue q 3 hour correctional insulin w/ regular. Tomorrow I will see how many more units she needed and adjust lantus up. I believe with A1C of 13 that she needed more insulin. Will benefit from endocrine/diabetic education. Will also benefit from education on sick day meds (1/2 lantus) and q1-2 hour accuchecks with correctional. Objective: Vital Signs - 24 hr 05/03/19 05/03/19 05/03/19 08:00 14:00 20:00 Temperature 98.9 F Pulse Rate 118 H Pulse Rate [ 111 H 115 H Left Radial] Respiratory 18 Rate Blood Pressure 126/76 O2 Sat by Pulse 99 Oximetry 05/03/19 05/04/19 22:00 05:00 Temperature 98.2 F 98.5 F Pulse Rate 116 H 102 H Pulse Rate [ Left Radial] Respiratory 22 16 Rate Blood Pressure 116/78 114/82 O2 Sat by Pulse 100 98 Oximetry Laboratory Last Values WBC 9.74 K/ul (4.6-10.2) D 05/04/19 05:00 RBC 4.12 10^6/ul (4.20-5.40) L 05/04/19 05:00 Hgb 12.7 g/dl (12.0-16.0) 05/04/19 05:00 Hct 36.9 % (37.0-47.0) L 05/04/19 05:00 MCV 89.6 fl (81.0-99.0) 05/04/19 05:00 MCH 30.8 pg (27.0-31.0) 05/04/19 05:00 MCHC 34.4 (31.8-35.4) 05/04/19 05:00 RDW Coeff of Ion 13.1 % (11.6-14.8) 05/04/19 05:00 Plt Count 243 10^3/uL (140-440) 05/04/19 05:00 Immature Gran % (Auto) 0.7 % (0.0-5.0) 05/04/19 05:00 Neut % (Auto) 66.4 05/04/19 05:00 Lymph % (Auto) 22.5 (10.0-50.0) 05/04/19 05:00 [place] % (Auto) 9.1 (0-10) 05/04/19 05:00 Eos % (Auto) 0.8 % (0.0-7.0) 05/04/19 05:00 Baso % (Auto) 0.5 % (0.0-3.0) 05/04/19 05:00 Immature Gran # (Auto) 0.1 (0.0-1.0) 05/04/19 05:00 Neut # (Auto) 6.5 K/ul (2.0-6.9) 05/04/19 05:00 Lymph # (Auto) 2.2 K/uL (0.60-3.4) 05/04/19 05:00 [place] # (Auto) 0.9 K/uL (0.4-2.0) 05/04/19 05:00 Eos # (Auto) 0.1 K/ul (0.0-0.7) 05/04/19 05:00 Baso # (Auto) 0.1 K/uL (0-0.2) 05/04/19 05:00 Puncture Site Rbrach 05/04/19 05:00 O2 Saturation 84.0 % (95-100) L 05/04/19 05:00 ABG pH 7.387 (7.35-7.45) 05/04/19 05:00 ABG pCO2 33.1 mmHg (35-45) L 05/04/19 05:00 ABG pO2 49.0 mmHg (85-100) L* 05/04/19 05:00 ABG HCO3 19.9 (22.0-26.0) L 05/04/19 05:00 ABG Total CO2 21 (22.0-28.0) L 05/04/19 05:00 ABG Base Excess -5 (-2.0-2.0) L 05/04/19 05:00 Ricky Test + 05/03/19 13:14 O2 Delivery Device Ra 05/03/19 13:14 FiO2 % 21.0 % 05/04/19 05:00 Sodium 140.4 mmol/L (134.5-145) 05/04/19 05:00 Potassium 3.12 mmol/L (3.5-5.1) L 05/04/19 05:00 Chloride 111.3 mmol/L (98-107) H 05/04/19 05:00 Carbon Dioxide 22.5 mmol/L (22-30.0) 05/04/19 05:00 Anion Gap 9.72 05/04/19 05:00 BUN 3.4 mg/dL (7-17) L 05/04/19 05:00 Creatinine 0.39 mg/dL (0.60-1.30) L 05/04/19 05:00 Estimated GFR (MDRD) 206.00 mL/min 05/04/19 05:00 BUN/Creatinine Ratio 8.71 05/04/19 05:00 Glucose 142.1 mg/dL (74-106) H 05/04/19 05:00 Hemoglobin A1c 13.74 (4.0-6.0) H 05/02/19 21:30 Calcium 8.50 mg/dL (8.4-10.2) 05/04/19 05:00 Magnesium 1.74 mg/dL (1.6-2.3) 05/03/19 13:05 Total Bilirubin 0.53 mg/dL (0.2-1.3) 05/02/19 21:30 AST 27.7 U/L (14-36) 05/02/19 21:30 ALT 27.4 U/L (0-35) 05/02/19 21:30 Alkaline Phosphatase 179.1 U/L (38-126) H 05/02/19 21:30 Total Protein 8.22 g/dL (6.3-8.2) H 05/02/19 21:30 Albumin 4.79 g/dL (3.5-5.0) 05/02/19 21:30 Globulin 3.43 05/02/19 21:30 Albumin/Globulin Ratio 1.39 05/02/19 21:30 Serum , Qual Negative (NEGATIVE) 05/02/19 21:30 Urine Color Yellow (YELLOW) 05/03/19 18:17 Urine Clarity Slightly (CLEAR) 05/03/19 18:17 Urine pH 6.0 (5-9) 05/03/19 18:17 Ur Specific [place] 1.010 (1.005-1.030) 05/03/19 18:17 Urine Protein Negative (NEGATIVE) 05/03/19 18:17 Urine Glucose (UA) 2+ (NEGATIVE) 05/03/19 18:17 Urine Ketones 1+ (NEGATIVE) 05/03/19 18:17 Urine Blood 2+ (NEGATIVE) 05/03/19 18:17 Urine Nitrite Negative (NEGATIVE) 05/03/19 18:17 Urine Bilirubin Negative (NEGATIVE) 05/03/19 18:17 Urine Urobilinogen 0.2 (0.2) 05/03/19 18:17 Ur Leukocyte Esterase Trace (NEGATIVE) 05/03/19 18:17 Urine Microscopic RBC 5-10 (0-2) 05/03/19 18:17 Urine Microscopic WBC 5-10 (0-2) 05/03/19 18:17 Ur Squamous Epith Cells 10-20 (0-5) 05/03/19 18:17 Amorphous Sediment Trace (NOT PRESENT) 05/02/19 23:40 Urine Bacteria 1+ (NOT PRESENT) 05/03/19 18:17 Granular Casts 0-2 (NOT PRESENT) 05/02/19 23:40 Fine Granular Casts 0-2 (NOT PRESENT) 05/02/19 23:40 Urine Opiates Screen Negative (NEGATIVE) 05/02/19 23:40 Ur Oxycodone Screen Negative (NEGATIVE) 05/02/19 23:40 Urine Methadone Screen Negative (NEGATIVE) 05/02/19 23:40 Ur Propoxyphene Screen Negative (NEGATIVE) 05/02/19 23:40 Ur Barbiturates Screen Negative (NEGATIVE) 05/02/19 23:40 U Tricyclic Antidepress Negative (NEGATIVE) 05/02/19 23:40 Ur Phencyclidine Scrn Negative (NEGATIVE) 05/02/19 23:40 Ur Amphetamine Screen Negative (NEGATIVE) 05/02/19 23:40 U Methamphetamines Scrn Negative (NEGATIVE) 05/02/19 23:40 U Benzodiazepines Scrn Negative (NEGATIVE) 05/02/19 23:40 Urine Cocaine Screen Negative (NEGATIVE) 05/02/19 23:40 U Cannabinoids Screen Positive (NEGATIVE) 05/02/19 23:40 Acetone, Qual Small (NONE) 05/02/19 21:30 Miscellaneous Test Sent to [facility] 05/02/19 21:30 ABG TRENDS: -Carlton 18-Carlton 18-Apr 18-Apr 18-Apr 19-Apr 20:56 1:00 5:54 7:14 13:14 0:00 pH 7.206 7.13 7.196 7.25 7.313 7.387 PC02 8 13 25.9 28.3 30 33.1 HCO3 3.2 4.3 10 12.5 15.2 19.9 Base Excess -25 -25 -18 -15 -11 -5 Allens Test + + + + + + Po2 180 127 111 108 108 49 (1) Dehydration Status: Acute Code(s): E86.0 - DEHYDRATION SNOMED Code(s): 97668461 (2) Burn from the sun Status: Acute Code(s): L55.9 - SUNBURN, UNSPECIFIED SNOMED Code(s): 78529574 (3) DKA (diabetic ketoacidoses) Status: Acute Code(s): E13.10 - OTH DIABETES MELLITUS WITH KETOACIDOSIS WITHOUT COMA SNOMED Code(s): 151222993 (4) Hypocalcemia Status: Acute Code(s): E83.51 - HYPOCALCEMIA SNOMED Code(s): 4225093 (5) Tachycardia Status: Acute Code(s): R00.0 - TACHYCARDIA, UNSPECIFIED SNOMED Code(s): 8393967 (6) Diabetes mellitus type 1, uncontrolled, insulin dependent Status: Acute Code(s): E10.65 - TYPE 1 DIABETES MELLITUS WITH HYPERGLYCEMIA SNOMED Code(s): 426092645 (7) Kussmaul breathing Status: Resolved Code(s): E87.2 - ACIDOSIS SNOMED Code(s): 022751271 Plan: DKA/Dehydration/DM1 poorly controlled: Improving, ABG are better. Fluids will be held, Lantus up to 40 units, 5 units humalog with meals and accucheck q 3 hours. Calcium is stable with calcium +D BID. She continues to improve and I expect discharge tomorrow. Potassium is low but being replaced. [place] Goal 4- 5 for her K+. BMP at 1300 and then again in am. Q 3 hour Accucheck with regular insulin correction. I will check entire day insulin needs and adjust prior to d/c. - Admit inpatient status to SCU - Telemetry - BMP 1300 and tomorrow am - Q 3 hour accucheck titrate drip to glucose 150-200 - REpeat ABG ~1300 today - A1C: (RETUNRED 13.74) - CBC in am. - Fluids D5 1/2NS +20meqKCL now to be held. Tachycardia: Improving w/ fluids. Now tolerating PO, will finish this and will hold fluids. Saline lock. - Telemetry Hypocalcemia: Continue Calcium Carbonate +Vit D 500mg BID - Calcium+VitD 500 BID. Sunburn: Monitor/healing. Dehydration: Tolerating PO, improving drastically. Diet: 1800 kcal ADA diet in am. DVT Prophy: Lovenox 40mg subcut. Disposition: She continues to improve. WIll stop drip, change lantus to 40 units daily, humalog 5 units scheduled. Will continue correction. Her gap is closing. pH on ABG improving. Tolerating meals. Vitals/tele look good. UA for ketones showed 1+ down from 4+. BHB lab is still pending. Suspect discharge home in 24 hours if she continues to improve. Lovenox for DVT prophy. She feels she is happy with progress. Breathing has improved, [place] respirations have not returned. She is a lot more comfortable. We reviewed DM at length today. Need for microalbumin, pneumonia vaccine, regular eye visits, need to consider endocrinology for her symptoms. She is DM 1, she presented in gap acidosis and had kussmaal breathing. I have helped to resolve these with fluids, dextrose, insulin, potassium and time. Today we spent 45 minutes face to face. discussing the above and reviewing her DM1.
[2019-05-04] MEDS: NORGESTIMATE ETHINYL ESTRADIOL PO SCH (08:08)
[2019-05-04] MEDS: K-DUR PO SCH ×2 (08:15→17:24)
[2019-05-04] MEDS: CALCIUM 500 + VIT D 200 MG TABLET PO SCH ×2 (08:15→21:01)
[2019-05-04] MEDS: LANTUS SUBCUT SCH ×2 (08:17→21:00)
[2019-05-04] MEDS: HUMALOG SUBCUT SCH ×3 (08:30→18:16)
[2019-05-04] MEDS: LOVENOX SUBCUT SCH (08:34)
[2019-05-04] MEDS: HUMULIN R SUBCUT PRN ×3 (10:23→21:00)
[2019-05-04] MEDS ORDERED: K-DUR PO ONE (11:00)
[2019-05-04] MEDS: ROCEPHIN 1 GM in SODIUM CHLORIDE 50 ML IV SCH (20:59)
[2019-05-05 05:13] VITALS: BP 123/87; TEMP 97.8
--- NOTE | 2019-05-05 08:01 | PCM.DC ---
Final Diagnosis: DKA (diabetic ketoacidoses) (Acute) Abnormal ABG Hypocalcemia Hypokalemia Diabetes mellitus type 1, uncontrolled, insulin dependent (Acute): A1C 13.74 Tachycardia (Acute) Burn from the sun (Acute) Dehydration (Acute) Kussmaal breathing (Resolved) (1) Dehydration Status: Acute Code(s): E86.0 - DEHYDRATION SNOMED Code(s): 15761741 (2) Burn from the sun Status: Acute Code(s): L55.9 - SUNBURN, UNSPECIFIED SNOMED Code(s): 84435947 (3) DKA (diabetic ketoacidoses) Status: Acute Code(s): E13.10 - OTH DIABETES MELLITUS WITH KETOACIDOSIS WITHOUT COMA SNOMED Code(s): 676810406, 595411380 Qualifiers: Diabetes mellitus type: type 1 Diabetes mellitus complication detail: without coma Qualified Code(s): E10.10 - Type 1 diabetes mellitus with ketoacidosis without coma (4) Hypocalcemia Status: Acute Code(s): E83.51 - HYPOCALCEMIA SNOMED Code(s): 1903018 (5) Tachycardia Status: Acute Code(s): R00.0 - TACHYCARDIA, UNSPECIFIED SNOMED Code(s): 4730512 (6) Diabetes mellitus type 1, uncontrolled, insulin dependent Status: Acute Code(s): E10.65 - TYPE 1 DIABETES MELLITUS WITH HYPERGLYCEMIA SNOMED Code(s): 451203907, 013079157 (7) Kussmaul breathing Status: Resolved Code(s): E87.2 - ACIDOSIS SNOMED Code(s): 052929375 (8) Abnormal ABGs Status: Acute Code(s): R79.81 - ABNORMAL BLOOD-GAS LEVEL SNOMED Code(s): 113581279 (9) Hyperglycemia due to type 1 diabetes mellitus Status: Acute Code(s): E10.65 - TYPE 1 DIABETES MELLITUS WITH HYPERGLYCEMIA SNOMED Code(s): 80252678, 236861118338099 Reason for Hospitalization: DKA, Abnormal ABG with pH 7.206, PCo2 8.0, hc03 3.2, metabolic gap acidosis, positive ketones (acetone), pending Beta-hydroxybutyrate labs (send out), Dehydration, DM 1 poorly controlled with a1c 13.74, hypokalemia, hypocalcemia, mildly elevated alk phosphatase, Kussmal breathing. Prognosis at Discharge: Good: Markedly improved. Gap closed, CO2 on BMP improved from <5 to 28. Potassium up and down (low of 2.95). 3.15 at discharge. Glucose up and down, corrected initially with insulin drip and then 05/04/19 changed to basal/bolus/ correctional. Improved throughout stay, ABG improved (see graph below). Condition at Discharge: Improved. Medications at Discharge: Ambulatory Orders Medication Instructions Recorded Norgestimate-Ethinyl Estradiol 1 each PO DAILY 02/12/18 [Tri-Sprintec Tablet] Calcium Carbonate/Vitamin D3 1 each PO BID 30 Days #60 tablet 05/05/19 [Calcium 500 + Vit D 200 mg Tablet] Insulin Glargine,Hum.rec.anlog 60 unit SQ BEDTIME #2 vial 05/05/19 [Lantus] Insulin Lispro [Admelog Solostar] 5 - 15 unit SQ DIRECTED 30 Days 05/05/19 #5 insuln.pen Potassium Chloride [K-Dur] 20 meq PO BIDWM 30 Days #60 tab 05/05/19 Lab/Diagnostics: Laboratory Last Values WBC 6.00 K/ul (4.6-10.2) 05/05/19 05:30 RBC 4.22 10^6/ul (4.20-5.40) 05/05/19 05:30 Hgb 13.0 g/dl (12.0-16.0) 05/05/19 05:30 Hct 37.8 % (37.0-47.0) 05/05/19 05:30 MCV 89.6 fl (81.0-99.0) 05/05/19 05:30 MCH 30.8 pg (27.0-31.0) 05/05/19 05:30 MCHC 34.4 (31.8-35.4) 05/05/19 05:30 RDW Coeff of Ion 13.2 % (11.6-14.8) 05/05/19 05:30 Plt Count 245 10^3/uL (140-440) 05/05/19 05:30 Immature Gran % (Auto) 0.3 % (0.0-5.0) 05/05/19 05:30 Neut % (Auto) 39.7 05/05/19 05:30 Lymph % (Auto) 44.7 (10.0-50.0) 05/05/19 05:30 [place] % (Auto) 11.8 (0-10) H 05/05/19 05:30 Eos % (Auto) 2.7 % (0.0-7.0) 05/05/19 05:30 Baso % (Auto) 0.8 % (0.0-3.0) 05/05/19 05:30 Immature Gran # (Auto) 0.0 (0.0-1.0) 05/05/19 05:30 Neut # (Auto) 2.4 K/ul (2.0-6.9) 05/05/19 05:30 Lymph # (Auto) 2.7 K/uL (0.60-3.4) 05/05/19 05:30 [place] # (Auto) 0.7 K/uL (0.4-2.0) 05/05/19 05:30 Eos # (Auto) 0.2 K/ul (0.0-0.7) 05/05/19 05:30 Baso # (Auto) 0.1 K/uL (0-0.2) 05/05/19 05:30 Puncture Site Rbrach 05/04/19 05:00 O2 Saturation 84.0 % (95-100) L 05/04/19 05:00 ABG pH 7.387 (7.35-7.45) 05/04/19 05:00 ABG pCO2 33.1 mmHg (35-45) L 05/04/19 05:00 ABG pO2 49.0 mmHg (85-100) L* 05/04/19 05:00 ABG HCO3 19.9 (22.0-26.0) L 05/04/19 05:00 ABG Total CO2 21 (22.0-28.0) L 05/04/19 05:00 ABG Base Excess -5 (-2.0-2.0) L 05/04/19 05:00 Ricky Test + 05/03/19 13:14 O2 Delivery Device Ra 05/03/19 13:14 FiO2 % 21.0 % 05/04/19 05:00 Sodium 139.2 mmol/L (134.5-145) 05/05/19 05:30 Potassium 3.15 mmol/L (3.5-5.1) L 05/05/19 05:30 Chloride 105.2 mmol/L (98-107) 05/05/19 05:30 Carbon Dioxide 28.0 mmol/L (22-30.0) 05/05/19 05:30 Anion Gap 9.15 05/05/19 05:30 BUN 7.5 mg/dL (7-17) 05/05/19 05:30 Creatinine 0.34 mg/dL (0.60-1.30) L 05/05/19 05:30 Estimated GFR (MDRD) 241.00 mL/min 05/05/19 05:30 BUN/Creatinine Ratio 22.05 05/05/19 05:30 Glucose 122.9 mg/dL (74-106) H D 05/05/19 05:30 Hemoglobin A1c 13.74 (4.0-6.0) H 05/02/19 21:30 Calcium 8.76 mg/dL (8.4-10.2) 05/05/19 05:30 Magnesium 1.74 mg/dL (1.6-2.3) 05/03/19 13:05 Total Bilirubin 0.53 mg/dL (0.2-1.3) 05/02/19 21:30 AST 27.7 U/L (14-36) 05/02/19 21:30 ALT 27.4 U/L (0-35) 05/02/19 21:30 Alkaline Phosphatase 179.1 U/L (38-126) H 05/02/19 21:30 Total Protein 8.22 g/dL (6.3-8.2) H 05/02/19 21:30 Albumin 4.79 g/dL (3.5-5.0) 05/02/19 21:30 Globulin 3.43 05/02/19 21:30 Albumin/Globulin Ratio 1.39 05/02/19 21:30 Serum , Qual Negative (NEGATIVE) 05/02/19 21:30 Urine Color Yellow (YELLOW) 05/03/19 18:17 Urine Clarity Slightly (CLEAR) 05/03/19 18:17 Urine pH 6.0 (5-9) 05/03/19 18:17 Ur Specific Maryne[place] 1.010 (1.005-1.030) 06/18/19 18:17 Urine Protein Negative (NEGATIVE) 05/03/19 18:17 Urine Glucose (UA) 2+ (NEGATIVE) 05/03/19 18:17 Urine Ketones 1+ (NEGATIVE) 05/03/19 18:17 Urine Blood 2+ (NEGATIVE) 05/03/19 18:17 Urine Nitrite Negative (NEGATIVE) 05/03/19 18:17 Urine Bilirubin Negative (NEGATIVE) 05/03/19 18:17 Urine Urobilinogen 0.2 (0.2) 05/03/19 18:17 Ur Leukocyte Esterase Trace (NEGATIVE) 05/03/19 18:17 Urine Microscopic RBC 5-10 (0-2) 05/03/19 18:17 Urine Microscopic WBC 5-10 (0-2) 05/03/19 18:17 Ur Squamous Epith Cells 10-20 (0-5) 05/03/19 18:17 Amorphous Sediment Trace (NOT PRESENT) 05/02/19 23:40 Urine Bacteria 1+ (NOT PRESENT) 05/03/19 18:17 Granular Casts 0-2 (NOT PRESENT) 05/02/19 23:40 Fine Granular Casts 0-2 (NOT PRESENT) 05/02/19 23:40 Urine Opiates Screen Negative (NEGATIVE) 05/02/19 23:40 Ur Oxycodone Screen Negative (NEGATIVE) 05/02/19 23:40 Urine Methadone Screen Negative (NEGATIVE) 05/02/19 23:40 Ur Propoxyphene Screen Negative (NEGATIVE) 05/02/19 23:40 Ur Barbiturates Screen Negative (NEGATIVE) 05/02/19 23:40 U Tricyclic Antidepress Negative (NEGATIVE) 05/02/19 23:40 Ur Phencyclidine Scrn Negative (NEGATIVE) 05/02/19 23:40 Ur Amphetamine Screen Negative (NEGATIVE) 05/02/19 23:40 U Methamphetamines Scrn Negative (NEGATIVE) 05/02/19 23:40 U Benzodiazepines Scrn Negative (NEGATIVE) 05/02/19 23:40 Urine Cocaine Screen Negative (NEGATIVE) 05/02/19 23:40 U Cannabinoids Screen Positive (NEGATIVE) 05/02/19 23:40 Acetone, Qual Small (NONE) 05/02/19 21:30 Miscellaneous Test Sent to [facility] 05/02/19 21:30 Na/K Trends 05/02/19 05/03/19 05/03/19 Range/Units 21:30 01:00 05:00 Sodium 136.0 138.0 136.1 (134.5-145) mmol/L Potassium 4.37 4.12 3.95 (3.5-5.1) mmol/L 05/03/19 05/03/19 05/03/19 Range/Units 09:05 13:05 17:19 Sodium 134.9 134.4 L 135.5 (134.5-145) mmol/L Potassium 3.66 3.73 3.30 L (3.5-5.1) mmol/L 05/03/19 05/04/19 05/04/19 Range/Units 21:16 01:00 05:00 Sodium 135.0 138.4 140.4 (134.5-145) mmol/L Potassium 3.20 L 2.95 L 3.12 L (3.5-5.1) mmol/L 05/04/19 05/05/19 Range/Units 12:59 05:30 Sodium 137.4 139.2 (134.5-145) mmol/L Potassium 3.79 3.15 L (3.5-5.1) mmol/L Glucose Trends 05/02/19 05/03/19 05/03/19 Range/Units 21:30 01:00 05:00 Glucose 229.4 H 232.1 H 223.5 H (74-106) mg/dL 05/03/19 05/03/19 05/03/19 Range/Units 09:05 13:05 17:19 Glucose 251.2 H 250.9 H 150.3 H D (74-106) mg/dL 05/03/19 05/04/19 05/04/19 Range/Units 21:16 01:00 05:00 Glucose 252.0 H D 167.5 H D 142.1 H (74-106) mg/dL 05/04/19 05/05/19 Range/Units 12:59 05:30 Glucose 332.9 H D 122.9 H D (74-106) mg/dL ABG TRENDS: 17-Carlton 18-Carlton 18-Carlton 18-Carlton 18-Carlton 19-Carlton 20:56 1:00 5:54 7:14 13:14 0:00 pH 7.206 7.13 7.196 7.25 7.313 7.387 PC02 8 13 25.9 28.3 30 33.1 HCO3 3.2 4.3 10 12.5 15.2 19.9 Base Excess -25 -25 -18 -15 -11 -5 Allens Test + + + + + + Po2 180 127 111 108 108 49 Education Provided to Patient and Family: 1. DKA 2. DM1 3. Lantus/meal time insulin differences 4. Sick time insulin changes 5. Correctional insulin changes. 6. recommended endocrine f/u. 7. Electrolyte issues 8. Sun protection. Follow-ups: 1. Claudia Rand in 1 week. Disposition: HOME SELF-CARE Hospital Course: 24 yo CF patient of Claudia Rand presented to [facility] ED 05/02/19 at 20: 55 with "I think I am in DKA." Temp in ED 97.9 pulse 139, rr 22, bp 113/80, pulse 99. She had known history of DM1, BMI 20.5, weight of 115. [place], poor diet, poor hydration and sunburned, she did not miss insulin. She presented with moderate to severe symptoms, dietary changes, Nausea/vomiting non bloody emesis, without fever, without obvious source of infection but had anuria so covered for urinary source. She is an insulin dependent diabetic patient x 1, poorly controlled (A1C checked and 13.74 ). Presented with GCS 15. No focal weakness, normal gait, negative babinski and normal exam. EKG was performed and she was placed on telemetry. + Kusssmaul respirations, +Dry mucus membranes, evidence of prominent dehydration. LMP known to be 05/01/19. CXR completed in ER negative. Labs in ER showed hemoconcentration with WBC 21.26, hgb 16.7, hct 51.3, plt 367. Sodium 136, K+ 4.37, Cl 106.9, CO2 <5.0 (critical), BUn 10.1, Cr 0.69 and glucose 229.4. ABG showed o2 99, ph 7.206 (Critical), pc02 8.0, p02 180, hc03 3.2. FIO2 21%. Serum negative. Alk phos mildly elevated at 179.1. Anion gap was present. ABG interpreted as anion gap metabolic acidosis. Primary metabolic acidosis with secondary respiratory alkalosis and possible secondary non gap metabolic acidosis present as well. pH was not less than 6.9. Her K+ was within 3.3 to 5.3 and I will added 20 meq of K+ per liter of fluids to keep her K+ at 4-5. With hemoconcetration she was given NaCl 1.0 L/ hour x 2 liters. Blood glucose monitoring continued every hour, basic metabolic panel q 4 hours, ABG q4-6 hours as well. UA C+S was ordered for when she had enough fluid to increase urine output (anuric at admit). REgular insulin to be given at ~0.05-1 units/kg/hour as her sugars are already ~200. Plan was to keep her 150-200 throughout this process. She was given rocehpin 1 gram, and this continued through the hospital stay. She was admitted to SCU for DKA. After her 2L bolus, her sugars were running ~200 and we changed her fluids to D5 1/2 NS + 20meq K+Cl- at 250ml per hour on day 1 and then 200ml/ hour on day 2. No urine available to check ketones. Acetone was positive/ small. Beta-hydroxybutyrate labs were sent out (pending still). I ordered whole blood UDS but she was able to urinate at 23:50 and THC was positive. [facility] is [facility] She got sun burnt, dehydrated, hemoconcentrated based on labs. Was Dx DM 1 at age of 10. Several DKA in her history. Normally on Lantus 20 units q day and fast insulin 1:5 carb ratio. Kussmaul breathing, metabolic gap acidosis, ketones, hyperglycemia placed her into our SCU on insulin drip/fluid hydration/ electrolyte monitoring. HD 2: 05/03/19: Accuchecks: 228/208/197/226/245/217/224/148. Received 2L NS changed to D5 1/2 NS + 20meq K+CL-. Telemetry remained Sinus tachy. ABG monitored. PH initially worsened 7.13, then improved until 05/04/19 7.387. 4 ABG on 05/03/19 showed pH up to 7.313 by the end, pco2 13, 25.9, 28.3, 30. Hc03 4.3, 10, 12.5, 15.2. No bicarb was given as she was not pH <6.9. Potassium was 4.12, calcium low at 8.35. I added calcium + vit D 500 BID. Remained tachycardic. Ordered magnesium lab returned normal. Kussmaul breathing improved/resolved by end of day on 05/03/19. She continued to improve, gap was improving/closing, urinating well at that time. Dehydration improving. WBC dropped from 21.2 to 18.7 hgb down to 13.4 from 16.7, plt stable. HD3: 05/04/19. Accucheck 05/03/19: 197/226/245/217/224/148/98/156/202/298/224/213/ 242/200/169/157/154/191/215/183/243/170/152 Accucheck 05/04/19: 129/168/186/159/157/142/122. Am labs showed CBC to have markedly improved. WBC now down to 9.74 from 18.73 on last check. Her Hgb has dropped to 12.7 from 13.4 previous check. Plt 243 down from 292 previously. ABG this am has her PH at 7.387, pC02 up to 33.1, po2 49, hc03 19.9. Base excess of -5 (see chart for ABG trends). She has had decreased K+ through this stay despite addition of her K+ to the fluids, PO K+CL to be given 2x daily. Calcium has returned to normal of 8.93 at 0100 this am and then 8.5 0500. Her K + did drop to 2.95 and then back up to 3.12. Insulin drip/fluids stopped. We changed her to q 3 hour accucheck, increase lantus to 40 (she ended up getting 80), from 20 and give her basal bolus insulin. She has needed between 60-72 units total of insulin. She started 5 units of humalog with each meal. Continued to correct insulin with regular insulin. Repeat urine had small ketones, 2+ blood. Urine culture negative. BHB labs remain pending. She has had good urine output. She has not had a recorded BM here. Meals consumed 100% x 2, 95% x 1. Vitals reviewed and her HR remained tachycardic, temp normal, o2 98-100 on RA. RR 16-22. Kussmall breathing had ceased as of 05/03/19. BP was stable. HD4: Today 05/05/19: Labs from 05/04 reviewed. CBC continued to improving. Today wbc 6, hgb 13, plt 13.2 and normalized. ABG yesterday am 05/04/19 showed pH 7.387 and co2 increased from 8 to 33.1 and base excess resolved to -5. Potassium remained low yesterday 1300 3.79 and back down to 3.15 this am. She received BID 20meq potassium. Creatinine stable 0.34. Glucose levels on BM were 332.9 yesterday 1300 and 122.9 this am. Calcium stable 8.76. Accucheck to present 129, 168, 186, 159, 157, 142, 122, 196, 290, 333, 84, 147, 246, 131, 84, 122. # 4 voids 05/04/19./ Up ad clarisse in room, tolerating this well. Consuming 50-100% of snack. Good urine output. HR 102, 102, 109, 88 yesterday and into this am. Telemetry reported SR and ST> BP stable throughout stay. 05/04/19 she received total of 18 units of humulin R. It appeared that she got 80 of lantus yesterday. IN that case I will give her 60 units daily at discharge. We will give her 7 units with meals and add correctional for her of 1:5 carbs, which should account for most of her needs. Would still encourage her to meet with endocrinology. Day of discharge examination: Vital Signs - 24 hr 05/04/19 05/04/19 05/05/19 14:00 22:00 05:10 Temperature 97.8 F 98.4 F 97.8 F Pulse Rate 102 H 109 H 88 Respiratory 14 19 17 Rate Blood Pressure 121/88 126/94 H 123/87 O2 Sat by Pulse 100 99 98 Oximetry Constitutional: Appearance-Now without distress, breathing comfortably. Asleep on entry. Easily awoken to name. Pleasant. Consistent with stated age. Orientation- Oriented x 3, Build and Nutrition-[BMI normal] General- Patient is pleasant and cooperative with the interview and exam. Seen 0700 12;20 and early pm today. Asleep on entry #1 but then awake and alert visits #2 and #3. Integumentary: General-Face less flushed, less red. Normal now. Healing Sunburn face arms, neck upper chest and legs. Palpation- Normal skin moisture/ turgor. Skin is warm to touch, appropriate. Capillary refill is normal bilateral Upper and lower extremity. ENMT: Moist mucus membranes. CHEST/LUNG: Inspection- symmetric chest wall no pectus deformity. Normal effort , no distress, no use of accessory muscles. Palpation- nontender sternum, ribline. No abnormal pulsations. Auscultation- Breath sounds full. Deep inspiration/expiration. Normal tracheal sounds, Normal bronchial sounds overlying sternum, Bronchovessicular sounds normal between scapulae posteriorly , Normal vessicular breath sounds heard throughout periphery. Lungs are clear today. Adventitious sounds- No wheezes, rales, rhonchi. Calm breathing, markedly better than last night. RR stable. CARDIOVASCULAR: Carotid artery- normal, no bruits or abnormal pulsations. Jugular vein- no pulsations. Palpation/Percussion- Normal PMI, no palpable thrill Auscultation- Tachycardia persists with normal rhythm. No murmur noted in sitting, supine positions. Extremities- no digital clubbing, cyanosis, edema, increased warmth. ABDOMEN: Inspection- normal and no visible pulsations. Normal contour. Auscultation- Bowel sounds normal, no abdominal bruits. Palpation/Percussion- soft, non-tender, no rebound tenderness, no rigidity (guarding), no jar tenderness, no masses. Peripheral Vascular: Upper extremity Left- Normal temperature with pink nailbeds and no ulcerations. Upper extremity Right- Normal temperature with pink nailbeds and no ulcerations. Lower extremity- Normal temperature with pink nailbeds and no ulcerations. DP pulses 2+ bilaterally. Pedal hair intact. Normal capillary refill. Edema- No edema. Musculoskeletal: Generalized-No generalized swelling or edema of extremities, no digital clubbing or cyanosis, neurovascularly intact all four extremities. Specialized Developer 5/5 bilaterally. NO pedal edema. Neurological: General- Moves all 4 extremities symmetrically. Symmetrical face and body posture. Cranial nerves- individually evaluated II-XII and intact. PERRLA, Normal EOMI, visual/special senses appear intact, Face is symmetrical and normal sensation/movement, normal tongue, normal strength/posture of neck musculature. Neuropsych: Oriented- Person, place, time. (AAOx3), Mood/affect- normal and congruent. Able to articulate well. Speech-Normal speech, normal rate, normal tone, normal use of language, volume and coherence. Thought content- normal with ability to perform basic computations and apply abstract thought/reason. Associations- intact, no SI/HI, no hallucinations, delusions, obsessions. Judgment/insight- Appropriate. Memory-Recall intact, remote and recent memory intact. Knowledge- Age appropriate fund of knowledge, concentration and attention span normal. Lymphatic: Head/Neck- normal size and non tender to palpation. Plan: Insulin: Hemoglobin A1C at admit was 13.74 - lantus has been increased to 60 units daily. She was on 20 units at admit. ( She got 80 units yesterday). Offered pens, she noted her insurance did not cover this so vials were sent to the pharmacy. - Admelog pens covered by insurance according to our EMR. I would like her to use 7 units of admelog with meals, correct with 1:5 carbs as before. I do not believe she has been controlled in a while. - Need to maintain hydration. If feeling like sugars are escalating, you need to see provider. - Consider meeting with endocrinology to discuss insulin pump. Electrolytes: Calcium was low. I have added calcium + Vit D to her regimen to take twice daily for now. Potassium was low. I have added potassium chloride to her regimen to take twice daily for now. Would like CMP in 1 week. Sick Time Insulin recommendations: If not tolerating food/drink by mouth consider dropping lantus to 50% dose and to add every 1-2 hour sugar checks. Would consider glucose 0-140 0 units, 141- 200 3 units, 201-260 4 units, 261-320 6 units, 321-400 8 units, 401-600 15 units and if >600 call provider or go to local ER. Discharge: HOME Diet: ADA 1800 kcal/day, avoid alcohol. Activity: As tolerated. >30 minutes spent in counseling/discharge of patient today,not including documentation time. - Called and talked with Claudia Rand office 8:55. They will call patient to make f/u appt in 5-7 days.
== END 2019-05-05 08:23 | disposition home or self-care (01) | DRG 640 ==
LOC: ED 20:40 → SCU 22:34
PROVIDERS: ADMIT Family Medicine; ATTEND Family Medicine
DX: E87.2 Acidosis (principal); E13.10 Other specified diabetes mellitus with ketoacidosis without coma; E10.10 Type 1 diabetes mellitus with ketoacidosis without coma; E86.0 Dehydration; E10.65 Type 1 diabetes mellitus with hyperglycemia; E83.51 Hypocalcemia; L55.9 Sunburn, unspecified; R11.2 Nausea with vomiting, unspecified; R00.2 Palpitations; R00.0 Tachycardia, unspecified; R79.81 Abnormal blood-gas level
CPT/HCPCS: 36415; 80048; 80053; 80306; 81001; 82009; 82803; 82962; 83036; 83735; 84703; 85025; 87086; 93005; 93010; 96360; 96361; 96365; 97802; 99285

== ENCOUNTER 2019-06-23 20:55 | Inpatient (IN) ==
[2019-06-23] MEDS ORDERED: SODIUM CHLORIDE 1,000 ML IV STA ×2 (21:14→22:13)
[2019-06-23] MEDS ORDERED: ZOFRAN 4 MG/2 ML IVP STA (21:14)
--- NOTE | 2019-06-23 21:36 | ED.PDOC ---
General ED Provider: Dr. JUAN LUIS IRAHETA Chief Complaint: Diabetes Stated Complaint: Has been feeling denydrated for afew days with blood gluocse elevated in the 300s. Has a history of DKA's. Also feels nausea. Time Seen by Physician: 21:14 Mode of Arrival: Walk-In Information Source: Patient, Family Exam Limitations: No limitations Primary Care Provider: JORDAN CMCLOUD Nursing and Triage Documentation Reviewed and Agree: Yes Does patient meet sepsis criteria?: No System Inflammatory Response Syndrome: Not Applicable Sepsis Protocol: For patient's 13 years and over: Temp is 96.8 and below OR 101 and greater Pulse >90 BPM Resp >20/minute Acutely Altered Mental Status Are patient's symptoms suggestive of a new infection, such as: -Pneumonia -Skin, Soft Tissue -Endocarditis -UTI -Bone, Joint Infection -Implantable Device -Acute Abdominal Infection -Wound Infection -Meningitis -Blood Stream Catheter Infection -Unknown Endocrine Complaint Exam - Diabetic Complication Complaint/Exam Onset/Duration: 2 days Symptoms Are: Still present Timing: Constant Initial Severity: Mild Current Severity: Moderate Character: Alert Aggravating: Reports: Recent illness Associated Signs and Symptoms: Reports: Nausea Related History: Reports: DM 1, Hx of DKA Cardiac Risk Factors: Reports: None CVA Risk Factors: Reports: None Serious Bacterial Infection Risk Factors: Reports: None Acetone on Breath: Yes Dry Mucous Membranes: Yes Kussmaul Respirations: Yes Glascow Coma Scale (see protocol): 15 Meningeal Signs: No Focal Weakness: None Focal Sensory Loss: None Gait: Normal Nystagmus Present: No Gag Reflex Present: No Finger to Nose: Normal Romberg Test Positive: No Babinski Sign: Negative Right, Negative Left Heel to Toe Normal: No Differential Diagnoses: Diabetic Ketoacidosis Quality Indicator For Non-Traumatic Chest Pain/Syncope: EKG Performed Review of Systems - Review Of Systems Constitutional: Reports: Malaise, Weakness, Loss of appetite Ears, Nose, Mouth, Throat: Reports: No symptoms Respiratory: Reports: Other (Tachypnia ) GI: Reports: Nausea, Poor appetite : Reports: No symptoms Musculoskeletal: Reports: No symptoms Skin: Reports: No symptoms Neurological: Reports: Anxiety Endocrine: Reports: No symptoms Hematologic/Lymphatic: Reports: No symptoms All Other Systems: Reviewed and Negative Past Medical History - Past Medical History Previously Healthy: Yes Endocrine: Reports: DM 1 (with multiple DKA'S ) Cardiovascular: Reports: None Respiratory: Reports: None Hematological: Reports: None Gastrointestinal: Reports: None Genitourinary: Reports: None Neuro/Psych: Reports: None Musculoskeletal: Reports: None Cancer: Reports: None Last Menstrual Period: 2 weeks ago - Surgical History General Surgical History: Reports: None - Family History Family History: Reports: None - Social History Smoking Status: Never smoker Hx Substance Use: No Alcohol Screening: None - Immunizations Tetanus Shot up to Date: Yes Physical Exam - Physical Exam Appearance: Ill-appearing, Thin Ill-appearing: Severe Eyes: [place] ENT: Dry mucosa Respiratory: Airway patent Cardiovascular: Tachycardia Musculoskeletal: Normal strength, ROM intact, No edema, No calf tenderness Skin: Warm, Dry, Normal color Neurological: Sensation intact, Motor intact, Cranial nerves intact, Alert, Oriented Psychiatric: Anxious Interpretation - Radiology Interpretation Radiology Interpretation By: ED Physician Radiology Results: Negative Exam Interpreted: 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 Critical Care Note - Critical Care Note Total Time (mins): 55 Course - Course Hematology/Chemistry: 06/23/19 21:46 06/23/19 21:46 Orders, Labs, Meds: Lab Review 06/23/19 06/23/19 06/23/19 21:36 21:46 21:46 WBC 12.73 H RBC 5.57 H Hgb 17.3 H Hct 50.5 H MCV 90.7 MCH 31.1 H MCHC 34.3 RDW Coeff of Ion 12.5 Plt Count 278 Immature Gran % (Auto) 0.5 Neut % (Auto) 77.6 Lymph % (Auto) 15.4 [place] % (Auto) 6.0 Eos % (Auto) 0.0 Baso % (Auto) 0.5 Immature Gran # (Auto) 0.1 Neut # (Auto) 9.9 H Lymph # (Auto) 2.0 [place] # (Auto) 0.8 Eos # (Auto) 0.0 Baso # (Auto) 0.1 Puncture Site Lb O2 Saturation 98.0 ABG pH 7.138 L* ABG pCO2 12.6 L ABG pO2 125.0 H ABG HCO3 4.3 L ABG Total CO2 < 5 L ABG Base Excess -25 L Ricky Test + FiO2 % 21.0 Sodium 140.0 Potassium 3.98 Chloride 108.9 H Carbon Dioxide 5.8 L* Anion Gap 29.28 BUN 10.4 Creatinine 0.82 Estimated GFR (MDRD) 87.00 BUN/Creatinine Ratio 12.68 Glucose 284.0 H Calcium 9.71 Total Bilirubin 0.59 AST 29.1 ALT 17.1 Alkaline Phosphatase 113.0 Total Creatine Kinase 20.9 L Total Protein 7.87 Albumin 4.72 Globulin 3.15 Albumin/Globulin Ratio 1.49 Serum , Qual Acetone, Qual 06/23/19 06/23/19 21:50 21:50 WBC RBC Hgb Hct MCV MCH MCHC RDW Coeff of Ion Plt Count Immature Gran % (Auto) Neut % (Auto) Lymph % (Auto) [place] % (Auto) Eos % (Auto) Baso % (Auto) Immature Gran # (Auto) Neut # (Auto) Lymph # (Auto) [place] # (Auto) Eos # (Auto) Baso # (Auto) Puncture Site O2 Saturation ABG pH ABG pCO2 ABG pO2 ABG HCO3 ABG Total CO2 ABG Base Excess Ricky Test FiO2 % Sodium Potassium Chloride Carbon Dioxide Anion Gap BUN Creatinine Estimated GFR (MDRD) BUN/Creatinine Ratio Glucose Calcium Total Bilirubin AST ALT Alkaline Phosphatase Total Creatine Kinase Total Protein Albumin Globulin Albumin/Globulin Ratio Serum , Qual Negative Acetone, Qual Small Orders Category Date Time Status ABG DRAW REQUEST Routine CARDIO 06/23/19 21:36 Completed EKG-(ED ONLY) Stat CARDIO 06/23/19 21:14 Completed Blood Sugar [ED ACCUCHECK ASSESSMENT] .ONCE EMERGENCY 06/23/19 20:56 Active ED IV/MEDIPORT/POWERPORT .ONCE EMERGENCY 06/23/19 21:14 Active ABG Stat LAB 06/23/19 21:36 Completed ACETONE, QUALITATIVE Stat LAB 06/23/19 21:50 Completed CBC W/ AUTO DIFF Stat LAB 06/23/19 21:46 Completed COMPREHENSIVE METABOLIC PANEL Stat LAB 06/23/19 21:46 Completed CREATINE KINASE Stat LAB 06/23/19 21:46 Completed HCG QUALITATIVE [SERUM ] Stat LAB 06/23/19 21:50 Completed URINALYSIS C & S IF INDICATED Stat LAB 06/23/19 22:17 Uncollected 0.9 % Sodium Chloride [Saline Flush] MEDS 06/23/19 21:14 Active 1 syr IVF PRN PRN Ondansetron HCl/Pf [Zofran 4 mg/2 ml] MEDS 06/23/19 21:14 Discontinued 4 mg IVP ONCE STA Sodium Chloride 0.9% [Sodium Chloride] 1,000 ml MEDS 06/23/19 21:14 Active IV 125 mls/hr Sodium Chloride 0.9% [Sodium Chloride] 1,000 ml MEDS 06/23/19 22:13 Active IV BOLUS CHEST, 1V AP ONLY Stat RADS 06/23/19 22:17 Ordered Medications Generic Name Dose Route Start Last Admin Trade Name Freq PRN Reason Stop Dose Admin Sodium Chloride 1,000 mls @ 125 mls/hr 06/23/19 21:14 06/23/19 22:08 Sodium Chloride IV 06/24/19 05:13 125 mls/hr .Q8H STA Administration Sodium Chloride 1,000 mls @ 1,000 mls/hr 06/23/19 22:13 Sodium Chloride IV 06/23/19 23:12 BOLUS STA Insulin Human Regular 100 unit 100 mls @ 5 mls/hr 06/23/19 22:45 / Sodium Chloride IV .Q20H TICO Protocol 5 UNIT/HR Sodium Chloride 1,000 mls @ 75 mls/hr 06/23/19 23:00 Sodium Chloride IV .[id number] TICO Sodium Chloride 1 syr 06/23/19 21:14 06/23/19 22:08 Saline Flush IVF 1 syr PRN PRN Administration To flush IV Discontinued Medications Generic Name Dose Route Start Last Admin Trade Name Freq PRN Reason Stop Dose Admin Ondansetron HCl 4 mg 06/23/19 21:14 06/23/19 22:08 Zofran 4 Mg/2 Ml IVP 06/23/19 21:15 4 mg ONCE STA Administration Vital Signs: Temp Pulse Resp BP Pulse Ox 06/23/19 21:48 132 H 22 117/76 100 06/23/19 21:39 134 H 20 06/23/19 20:58 98 F 147 H 28 H 112/82 99 Departure - Departure Time of Disposition: 22:47 Disposition: ADMITTED INPATIENT Discharge Problem: DKA (diabetic ketoacidoses) Qualifiers: Diabetes mellitus type: type 1 Diabetes mellitus complication detail: without coma Qualified Code(s): E10.10 - Type 1 diabetes mellitus with ketoacidosis without coma Condition: Fair Pt referred to PMD for follow-up: Yes IPMP verified?: No Allergies/Adverse Reactions: Allergies No Known Allergies Allergy (Verified 05/02/19 20:45) Home Medications: Ambulatory Orders Insulin Glargine,Hum.rec.anlog [Lantus] 60 unit SQ BEDTIME #2 vial 05/05/19 Insulin Lispro [Humalog] 1 unit SUBCUT PRN PRN 06/23/19
[2019-06-23] MEDS ORDERED: HUMULIN R 100 UNIT in SODIUM CHLORIDE 100 ML IV SCH (22:45)
--- NOTE | 2019-06-23 22:49 | DI ---
EXAM: Chest, one-view HISTORY: Shortness of breath FINDINGS: Cardiac and mediastinal contours are normal. Pulmonary vasculature is normal. Lungs are clear. Bony thorax is unremarkable. IMPRESSION: Within normal limits
[2019-06-23] MEDS ORDERED: SODIUM CHLORIDE 1,000 ML IV SCH (23:00)
[2019-06-23 23:14] VITALS: BMI 19.8
--- NOTE | 2019-06-23 23:32 | PCM ---
- Chief Complaint Chief Complaint: Insulin dependent diabetes, History of DKA, dehydration, worsening 48 hours. - History of Present Illness History of Present Illness: 24 yo CF patient of Claudia Rand known to me through recent hospital stay 05/02- with DKA presented to ED again 06/23/19 21:14 with worsening dehydration, BG > 300's and nauseated. She came in as walk-in with family. Vitals upon arrival included temp 98, pulse 147, rr 28, 112/82, pulse ox 99%. She is respiring with kusmaal breathing. Subsequent vitals 21:39 pulse 134, rr 20, 21:48 pulse 132, RR 22, BP 117/76, pulse 100. Labs reviewed and WBC 12.73, hgb 17.3, hct 50.5 and plt 279. CMP showed sodium 140, K+ 3.98, cl 108.9, CO2 5.8, BUN 10.4, Cr 0.82 and glucose 284. ABG was completed and pH 7.138, pc02 12.6, po2 125, hco3 4.3, allens test +. Independent interpretation of the ABG showed an anion gap metabolic acidosis primary with secondary respiratory alkalosis and non gap met acid as well. Acetone returned small, test negative. No urine so far. They had difficulty getting an IV placed and were able to complete a 24G with 350ml/hr flow. She was given zofran, started on fluids and by the time DR. Seymour called me she had ~350 ml intake. For the past 48 hours she has had worsening symptoms of fatigue, nausea and just not feeling well. Sx mild to moderate, recent illness, history of DM1 insulin dependent and history of DKA. I have seen her only in hospital and never in clinic. She requested me to admit this pm. She presetned with dry mucus membranes, kussmaul respirations, GCS 15, EKG completed and WNL. She had malaise, weakness, loss of appetite, tachypnea, anxiety. She has had multiple DKA in her life and this is the second that I have cared for. LMP 2 weeks ago, negative as listed above. She was placed on licensed and certified midwife with Sinus tachy, EKG related same sinus tachy. W/ Hydration started, she was feeling better. She had given self 12 units of insulin prior to arrival and sugars were not that far off. However , she is clinically dry. Labs showed hemoconcentration and the vitals supported same result. Fluids did help her to improve some and it was felt inpatient admission for DKA was warranted. I was contacted at 22:20 and saw patient in room SCU-2. CXR reviewed personally and no acute process, bony windows normal. Radiology review became available after personally reviewing the images and congruent with my interpretation of no active process and No e/o pneumonia. Awoke this am around 1-2 am and felt nasueated and was breathing weird. She has urine ketones at home but was unable to find them. No emesis, no diarrhea, no urinary symptoms. Period 2 weeks ago normal for patient. Sexually active but not currently. Mildly stuffy nose, mild sore throat. Last worked last week , was supposed to work 06/21/19 but daughter Argelia had caudal regression and had surgery, had to go back in and fix scar tissue from the prior surgery 10/2018. Stress is up, no ETOH. No drug use. She was at hospital with daughter same day on 06/21/19. She did not eat or drink much while daughter in hospital/ surgery and she had increased stress. She is now recovering, which is a blessing. She was brought into ER by mother joe. Lives at home with mother and daughter. They were able to get a 24G into her She notes that she is around 120 normally. She thinks her current weight may be close to baseline but I think she is probably down around 5 lb at minimum (2L). - Review of Systems Constitutional: weakness, sweats, fatigue, loss of appetite. No: fever, chills , other Eyes: blurred vision, double-vision. No: discharge, itching, pain, redness, photophobia, other Ears: No: pain, bleeding, drainage, ringing, hearing loss, other Nose: No: bleeding, congestion, discharge, other Throat: No: pain, swelling, voice change, other Mouth: No: bleeding, pain, swelling, other Respiratory: shortness of air, other (Kussmaul). No: cough, wheeze, hemoptysis , pain with breathing Cardiovascular: No: chest pain, left arm pain, diaphoresis, PND, orthopnea, edema, palpitations, syncope, other Gastrointestinal: nausea. No: abdominal pain, other, vomiting, diarrhea, melena , hematemesis, hematochezia, dysphagia, constipation Genitourinary: other (decreased urine output. Normal period 2 weeks ago. ). No : dysuria, hematuria, frequency, incontinence, flank pain, vaginal discharge, abnormal bleeding, pelvic pain Neurological: headache, dizziness, weakness. No: other, seizure, numbness, speech difficulty, problems with walking, tremor, fainting Musculoskeletal: No: pain, swelling in joints, other Skin: No: rash, pruritus, lacerations, wounds, bruising, other Immunology: No: hives, itching, frequent infections, difficulty healing, other Hematology: No: easy bruising, easy bleeding, swollen glands, other Endocrine: weight changes, excessive thirst. No: cold intolerance, heat intolerance, excessive hunger, polyuria, other Psychiatric: anxiety. No: depression, sleeplessness, hopelessness, suicidal, hallucinations, other Habits: No: tobacco use, substance use, alcohol use, other - Past Medical History Past Medical History: DM 1 dx age 10. History of DKA. History of nephrolithiasis. daughter at home with patient. Last DKA 04/2019 admitted [facility]. - Past Surgical History Past Surgical History: Nephrolithiasis with lithotripsy - Allergies Allergies/Adverse Reactions: Allergies Allergy/AdvReac Type Severity Reaction Status Date / Time No Known Allergies Allergy Verified 05/02/19 20:45 - Medications Medications: Medications Generic Name Dose Route Start Last Admin Trade Name Freq PRN Reason Stop Dose Admin Sodium Chloride 1,000 mls @ 125 mls/hr 06/23/19 21:14 06/23/19 22:08 Sodium Chloride IV 06/24/19 05:13 125 mls/hr .Q8H STA Administration Insulin Human Regular 100 unit 100 mls @ 5 mls/hr 06/23/19 22:45 / Sodium Chloride IV .Q20H TICO Protocol 5 UNIT/HR Sodium Chloride 1,000 mls @ 75 mls/hr 06/23/19 23:00 Sodium Chloride IV .[id number] TICO Sodium Chloride 1 syr 06/23/19 21:14 06/23/19 22:08 Saline Flush IVF 1 syr PRN PRN Administration To flush IV - Family History Past Family History: MGM and MGF DM 1. Mother vitilgo. - Social History Past Social History: Single, child x1. . 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 No tobacco, no drugs , no ETOH. - Body Composition Height: 5 ft 3 in Weight: 112 lb 3.445 oz Body Mass Index (BMI): 19.8 - Physical Examination HEENT: Temp Pulse Resp BP Pulse Ox 06/23/19 22:56 98.1 F 129 H 16 98 06/23/19 21:48 132 H 22 117/76 100 06/23/19 21:39 134 H 20 06/23/19 20:58 98 F 147 H 28 H 112/82 99 Constitutional: Appearance-Moderate distress, Kussmaul breathing. Consistent with stated age. Orientation- Oriented x 3, alert GCS 15. Build and Nutrition-[ BMI normal] General- Patient is pleasant and cooperative with the interview and exam. I did not appreciate smell of ketones on patient. Integumentary: General-No rash face, arms, neck upper chest and legs. Palpation - increased turgor. Skin is warm to touch, appropriate. Capillary refill is normal to mildly prolonged bilateral Upper and lower extremity. Head/Neck: Head- normocephalic and atraumatic. Neck- without visible/palpable lumps or pulsations. Palpation- No bony tenderness about head/neck along frontal, occipital, temporal, parietal, mastoid, jawline, zygoma, orbit or any other location. NO temporal artery tenderness. No TMJ tenderness. Neck Supple. Thyroid-No thyromegaly, no nodules Eye: Bilaterally PERRLA, EOMI. No discharge. Upper and lower eyelids are normal. Sclera/conjunctiva normal without discharge. Cornea is normal and clear. Lens is normal. Eyeball appears normal. No ciliary flushing, no conjunctival injection. ENMT: Pinna- normal without tenderness or erythema. External auditory canal Left- normal without erythema or discharge, no excessive cerumen. External auditory canal Right-normal without erythema or discharge, no excessive cerumen. TM left- Mix/pearly, normal light reflex and anatomy TM Right- Mix/ pearly, normal light reflex and anatomy Hearing Assessment-normal to conversational speech. Nose and sinus- No sinus tenderness along frontal/ maxillary region. External appearance normal and midline. Nares- bilateral quiet airflow, no discharge. Nasal mucosa- No bleeding noted and no ulcerations observed. [place], moist. Turbinates non boggy. Lips- normal color, dry cracked. No lesions. Oral Cavity/Palate- hard/soft palate intact without lesions, oral mucosa dry. Dentition assessed and looked good. Tongue normal midline. Oropharynx- no pharyngeal erythema, Uvula midline. No post nasal drip. No exudate. Salivary glands- Non tender to palpation CHEST/LUNG: Inspection- symmetric chest wall no pectus deformity. Normal effort , no distress, no use of accessory muscles. Palpation- nontender sternum, ribline. No abnormal pulsations. Auscultation- Breath sounds full. Deep inspiration/expiration. Normal tracheal sounds, Normal bronchial sounds overlying sternum, Bronchovessicular sounds normal between scapulae posteriorly , Normal vessicular breath sounds heard throughout periphery. Lungs are clear today. She is actually breathing more calmly now, kussmaal breathing had terminated by the time I saw her. Borderline tachypneic but able to talk in complete sentences. Adventitious sounds- No wheezes, rales, rhonchi. CARDIOVASCULAR: Carotid artery- normal, no bruits or abnormal pulsations. Jugular vein- no pulsations. Palpation/Percussion- Normal PMI, no palpable thrill Auscultation- Tachycardic with normal rhythm. No murmur noted in sitting, supine positions. Extremities- no digital clubbing, cyanosis, edema, increased warmth. ABDOMEN: Inspection- normal and no visible pulsations. Normal contour. Auscultation- Bowel sounds normal, no abdominal bruits. Palpation/Percussion- soft, non-tender, no rebound tenderness, no rigidity (guarding), no jar tenderness, no masses. Liver-no hepatomegaly, Spleen no splenomegaly, Hernias - none. Rectal not examined. Peripheral Vascular: Upper extremity Left- Normal temperature with pink nailbeds and no ulcerations. Upper extremity Right- Normal temperature with pink nailbeds and no ulcerations. Lower extremity- Normal temperature with pink nailbeds and no ulcerations. DP pulses 2+ bilaterally. Pedal hair intact. Normal capillary refill. Edema- No edema. Musculoskeletal: Generalized-No generalized swelling or edema of extremities, no digital clubbing or cyanosis, neurovascularly intact all four extremities. Upper extremity- Symmetrical posture. No visible deformity. Normal sensation along medial and lateral upper extremity proximally and distally. NO tenderness overlying shoulder, lateral/medial epicondyle. Learning Program Manager 5/5 and strength 5/5 bilateral UE. Elbow palpated, no tenderness overlying olecranon. Normal supination, pronation to active/passive ROM and to resisted rotation. Bicep insertion/tricep insertion appear normal without obvious pathology. Rotator cuff evaluated and intact. Normal wrist ROM bilaterally. Normal hand movement, intrinsic muscles of hands normal. No tenderness to palpation of hands/wrists/ elbows. Lower extremity- Hip: Not tender to palpation, no pain, no swelling, edema or erythema of surrounding tissue, normal strength and tone. Normal appearing hip ROM bilaterally without pain. Knee: Knee ROM normal. No tenderness overlying trochanters, no tenderness about patella, quad tendon, patellar tendon. No tenderness at tibial tuberosity. Spine/Ribs- No deformities, masses or tenderness, no known fractures, normal strength, Normal ROM. Normal stability No tenderness along C/T/L spine. Normal appearing ROM about spine. Neurological: General- Moves all 4 extremities symmetrically. Symmetrical face and body posture. Cranial nerves- individually evaluated II-XII and intact. PERRLA, Normal EOMI, visual/special senses appear intact, Face is symmetrical and normal sensation/movement, normal tongue, normal strength/posture of neck musculature. Reflexes- intact with DTR 2+ patellar, Achilles, bicep, brachial, tricep. Ankle clonus normal with 2 beats. Strength- 5/5 bilateral UE and LE. Soft touch- intact bilateral UE and LE. Temperature sensation- intact bilateral UE and LE. Neuropsych: Oriented- Person, place, time. (AAOx3), Mood/affect- normal and congruent. Able to articulate well. Speech-Normal speech, normal rate, normal tone, normal use of language, volume and coherence. Thought content- normal with ability to perform basic computations and apply abstract thought/reason. Associations- intact, no SI/HI, no hallucinations, delusions, obsessions. Judgment/insight- Appropriate. Memory-Recall intact, remote and recent memory intact. Knowledge- Age appropriate fund of knowledge, concentration and attention span normal. Lymphatic: Head/Neck- normal size and non tender to palpation. Axillary- normal size and non tender to palpation. Femoral and Inguinal- normal size and non tender to palpation. - Lab/Tests/Diagnostic Imaging Lab/Tests/Diagnostic Imaging: Laboratory Last Values WBC 12.73 K/ul (4.6-10.2) H 06/23/19 21:46 RBC 5.57 10^6/ul (4.20-5.40) H 06/23/19 21:46 Hgb 17.3 g/dl (12.0-16.0) H 06/23/19 21:46 Hct 50.5 % (37.0-47.0) H 06/23/19 21:46 MCV 90.7 fl (81.0-99.0) 06/23/19 21:46 MCH 31.1 pg (27.0-31.0) H 06/23/19 21:46 MCHC 34.3 (31.8-35.4) 06/23/19 21:46 RDW Coeff of Ion 12.5 % (11.6-14.8) 06/23/19 21:46 Plt Count 278 10^3/uL (140-440) 06/23/19 21:46 Immature Gran % (Auto) 0.5 % (0.0-5.0) 06/23/19 21:46 Neut % (Auto) 77.6 06/23/19 21:46 Lymph % (Auto) 15.4 (10.0-50.0) 06/23/19 21:46 [place] % (Auto) 6.0 (0-10) 06/23/19 21:46 Eos % (Auto) 0.0 % (0.0-7.0) 06/23/19 21:46 Baso % (Auto) 0.5 % (0.0-3.0) 06/23/19 21:46 Immature Gran # (Auto) 0.1 (0.0-1.0) 06/23/19 21:46 Neut # (Auto) 9.9 K/ul (2.0-6.9) H 06/23/19 21:46 Lymph # (Auto) 2.0 K/uL (0.60-3.4) 06/23/19 21:46 [place] # (Auto) 0.8 K/uL (0.4-2.0) 06/23/19 21:46 Eos # (Auto) 0.0 K/ul (0.0-0.7) 06/23/19 21:46 Baso # (Auto) 0.1 K/uL (0-0.2) 06/23/19 21:46 Puncture Site Lb 06/23/19 21:36 O2 Saturation 98.0 % (95-100) 06/23/19 21:36 ABG pH 7.138 (7.35-7.45) L* 06/23/19 21:36 ABG pCO2 12.6 mmHg (35-45) L 06/23/19 21:36 ABG pO2 125.0 mmHg (85-100) H 06/23/19 21:36 ABG HCO3 4.3 (22.0-26.0) L 06/23/19 21:36 ABG Total CO2 < 5 (22.0-28.0) L 06/23/19 21:36 ABG Base Excess -25 (-2.0-2.0) L 06/23/19 21:36 Ricky Test + 06/23/19 21:36 FiO2 % 21.0 % 06/23/19 21:36 Sodium 140.0 mmol/L (134.5-145) 06/23/19 21:46 Potassium 3.98 mmol/L (3.5-5.1) 06/23/19 21:46 Chloride 108.9 mmol/L (98-107) H 06/23/19 21:46 Carbon Dioxide 5.8 mmol/L (22-30.0) L* 06/23/19 21:46 Anion Gap 29.28 06/23/19 21:46 BUN 10.4 mg/dL (7-17) 06/23/19 21:46 Creatinine 0.82 mg/dL (0.60-1.30) 06/23/19 21:46 Estimated GFR (MDRD) 87.00 mL/min 06/23/19 21:46 BUN/Creatinine Ratio 12.68 06/23/19 21:46 Glucose 284.0 mg/dL (74-106) H 06/23/19 21:46 Calcium 9.71 mg/dL (8.4-10.2) 06/23/19 21:46 Total Bilirubin 0.59 mg/dL (0.2-1.3) 06/23/19 21:46 AST 29.1 U/L (14-36) 06/23/19 21:46 ALT 17.1 U/L (0-35) 06/23/19 21:46 Alkaline Phosphatase 113.0 U/L (38-126) 06/23/19 21:46 Total Creatine Kinase 20.9 U/L (30-135) L 06/23/19 21:46 Total Protein 7.87 g/dL (6.3-8.2) 06/23/19 21:46 Albumin 4.72 g/dL (3.5-5.0) 06/23/19 21:46 Globulin 3.15 06/23/19 21:46 Albumin/Globulin Ratio 1.49 06/23/19 21:46 Serum , Qual Negative (NEGATIVE) 06/23/19 21:50 Acetone, Qual Small (NONE) 06/23/19 21:50 ABG: ABG: anion gap metabolic acidosis. Primary met acid w/ secondary resp alk and additional non gap met acid. IMAGING: CXR: No acute process no pneumonia. Urine: Pending - Assessment (1) DKA (diabetic ketoacidoses) Status: Acute Code(s): E13.10 - OTH DIABETES MELLITUS WITH KETOACIDOSIS WITHOUT COMA SNOMED Code(s): 398571604, 582657005 Qualifiers: Diabetes mellitus type: type 1 Diabetes mellitus complication detail: without coma Qualified Code(s): E10.10 - Type 1 diabetes mellitus with ketoacidosis without coma (2) Abnormal ABGs Status: Acute Code(s): R79.81 - ABNORMAL BLOOD-GAS LEVEL SNOMED Code(s): 638714314 (3) Dehydration Status: Acute Code(s): E86.0 - DEHYDRATION SNOMED Code(s): 93068647 (4) Diabetes mellitus type 1, uncontrolled, insulin dependent Status: Acute Code(s): E10.65 - TYPE 1 DIABETES MELLITUS WITH HYPERGLYCEMIA SNOMED Code(s): 972120757, 948139121 (5) Tachycardia Status: Acute Code(s): R00.0 - TACHYCARDIA, UNSPECIFIED SNOMED Code(s): 2620368 (6) Kussmaul breathing Status: Resolved Code(s): E87.2 - ACIDOSIS SNOMED Code(s): 861000603 - Plan Plan: DKA/Dehydration/Kussmaul breathing/Tachycardia/abnormal ABG: Diagnostic criteria for DKA glucose >250, arterial pH <7.3, serum bicarb <18mEq/L and so far anuria. Urine is pending in hospital as she has not yet urinated. Small ketones on blood work. We are fluid hydrating her as she has dehydration on top of these processes. She was given 1L of NS but not as quick as we would like due to the 24G. Hemoconcentration evident on the CBC. ABG, CBC w/ diff, ( unable to get UA), glucose, BUN, CMP ordered. EKG ordered/eval and she was placed on tele. She was found to be in Kussmaul respirations, ABG with prominent metabolic acidosis with respiratory alkalosis. Sodium normal. Repeat ABG in the am. It appears that her sugars are already <250. I will change he fluids to d51/2 NS+20KCL- with goal to keep K+ 4-5. End goals for patient will be resolution of the ketoacidos once the anion gap normalizes to < 12.0. When able to eat that is another sign of improvement. I suspect large part of her presentation was dehydration with hyperglycemia and now DKA. We will use anion gap as means of monitoring the improvement. Sugars are already 200 thus I will use D51/2NS. We will use insulin drip 0.02-0.05 units/kg/hour. Goal 150-200 mg/dL until DKA resolved. We will continue 1 unit per hour through the night and titrate up/down based on glucose check on the hour. Suspect we will stop drip in the am and change to q2 hour accucheck with correctional. Await UA. Check UDS> - Admit inpatient status to SCU-2 - UDS - Telemetry - Q4 hour BMP - Q 1 hour accucheck - Change to D5 1/2NS +2- K at 150 ml/hour. I want another IV to get more fluid going. - REpeat ABG now - A1C 13.74 2 months ago, repeat again in am - CBC in am. - ABG 0600 - BMP 0200 - Mg++ 0200 - Water/ice chips okay/broth okay/food okay. - If taking meal please take PO K+. Anion Gap Met Acid: Fluid hydration encouraged. Monitor glucose, monitor Uout. Tachycardia: Suspect part of the dehydration. We will work on fluid hydration and f/u with results. - Telemetry Dehydration: Normal weight ~120 as of last inpatient admit. About 7-8 pounds low. She has received ~2L of fluids so far, improving. Diet: 1800 kcal ADA diet in am. NPO tonight DVT Prophy: Lovenox 40mg subcut today. Disposition: She meets definition of DKA and has at least 2 L dehydration. Weight may be 3-5 lb low. I will follow her accucheck, fluids adjusted/ running. I would like for them to try a second line when able to have another good site. Now on 1/2NS +20 K. Oral K+ BID with meals to keep K+ 4-5, keep her at 150-250ml hour of fluids. Typically when sugars <200 d51/2NS is recommended , thus the change. She did have small acetone, she was able to urinate as I left floor and thus this appears to be improving. Breathing is improving, still tachycardic but after time in hospitak, she is a lot more comfortable. Last known a1c was 13.74, repeat as noted in am. >70 minutes spent with patient and evaluating her status, monitor tele, d/w Dr. Schmitt personally, talked with Marisela nurse as well. Expected length of stay 2-3 days.
[2019-06-23] MEDS ORDERED: D5%-1/2NS-KCL 20 MEQ/L IV SOL 1,000 ML IV SCH (23:45)
[2019-06-24] MEDS ORDERED: ZOFRAN ODT PO PRN (00:23)
[2019-06-24] MEDS: LOVENOX SUBCUT SCH ×2 (00:34→08:09)
[2019-06-24] MEDS ORDERED: HUMULIN R ONE (00:39)
[2019-06-24] MEDS: K-DUR PO SCH ×3 (00:42→16:53)
[2019-06-24] MEDS: D5%-1/2NS-KCL 20 MEQ/L IV SOL 1,000 ML IV SCH ×4 (00:43→20:42)
[2019-06-24] MEDS: HUMULIN R 100 UNIT in SODIUM CHLORIDE 100 ML IV SCH (00:49)
--- NOTE | 2019-06-24 07:55 | PCM.PROG ---
Subjective: 24 yo CF HD #2 DKA, chronic poorly controlled IDDM type 1, a1c 11.64 improved from previous levels but still out of control. She admitted to me this am about not caring for self, allowing her sugars to mostly do what they want, not taking meds regularly. She was admitted late last night and had some broth, liquids/water and reported no N/V/D. She was able to urinate, UDS was negative , UA with SG 1.030, glucose 2+, Ketones 4+. I+O so far 1420 in documented and 1000 output. Accuchecks 357/204/180/307/309/319/251/243/188. She is on insulin drip with goal to maintain 150-200. Pulse 128-130 overnight was 118 in room SCU-2 at 7:10 this am. BP have been okay to mildly low 117/76, 106/79, 97/ 58, 98/56. Temp 98.4, RR 16-22, Reviewed telemetry overnight and she was sinus tach and persists now this am as ST. CBC Reviewed this am and her WBC has increased slightly from 12.73 to 13.29. Her hgb is down to 15.7 and plt increased to 284. Her ABG this am increased ph from 7.138 to 7.211, the pC02 from 12.6 to 22.6, Hco3 from 4.3 to 9.1. Co2 from less than 5 to 10. Base excess improved from -25 to -19. BMP was checked at 02:00 and now a CMP at 05: 30. BMP at 02:01 showed normal sodium, K+ up to 4.16, co2 up from 5.8 to 7.1. Glucose up to 319.7. Her A1C returned 11.64. Magnesium returned normal at 1.8. CMP this am showed co2 up from the 7.1 at 02:00 to 14.7 which was a good change. Glucose 243.1. Calcium was 8.80, corrected to calcium 8.9. Corrected sodium 143-144 based on Hayward/Phi equations. New ABG again showed primary metabolic acidosis but now had appropriate compensated respiratory alkalosis w/ additional non gap acidosis. Overnight nurses note reviewed and no new c/o. Patient resting comfortably upon entry. The patient awoke easily and was conversant kussmaul breathing has resolved. She has no odor of ketones. She is improving. WE discussed her A1C, discussed chronic diabetes control and she noted that she was actually surprised it was this good. Patient rounded upon again at noon. Her repeat ABG this afternoon improved further from pH 7.211 up to 7.264. Pc02 up to 31.3, po2 up to 31.3, hc03 up to 14.2 and base excess -19 to -13. Chemistry panel sodium stable 139 at 12:50, K+ 3.82, Cl 113, C02 up to 18.4 from 14.7, creainine 0.49, glucose 220.2. Calcium 8.65. Since 11:00 q 1 hour accucheck 254,223,231,218,214,241. She is on insulin drip, which will be d/c in the am. Review of Systems Constitutional: weakness, sweats, fatigue, loss of appetite. No: fever, chills , other Eyes: blurred vision, No: double-vision, discharge, itching, pain, redness, photophobia, other Ears: No: pain, bleeding, drainage, ringing, hearing loss, other Nose: No: bleeding, congestion, discharge, other Throat: No: pain, swelling, voice change, other Mouth: No: bleeding, pain, swelling, other Respiratory: No shortness of air, other (kussmaal resolved) Cardiovascular: No: chest pain, left arm pain, diaphoresis, PND, orthopnea, edema, palpitations, syncope, other Gastrointestinal: nausea No: abdominal pain,vomiting. other, diarrhea, melena , hematemesis, hematochezia, dysphagia, constipation Genitourinary: No: dysuria, hematuria, frequency, incontinence, flank pain, vaginal discharge, abnormal bleeding, pelvic pain Neurological: headache, dizziness, weakness. No: seizure, numbness, speech difficulty, problems with walking, tremor, fainting Musculoskeletal: pain. No: swelling in joints, other Skin: No rash pruritus, lacerations, wounds, bruising, other Immunology: No: hives, itching, frequent infections, difficulty healing, other Hematology: No: easy bruising, easy bleeding, swollen glands, other Endocrine: weight changes, excessive thirst. No: excessive hunger Psychiatric: No: depression, anxiety, sleeplessness, hopelessness, suicidal, hallucinations, other Habits: No substance, tobacco use, alcohol use, other Objective: Vital Signs - 24 hr 06/23/19 06/23/19 06/23/19 20:58 21:39 21:48 Temperature 98 F Pulse Rate 147 H 134 H 132 H Pulse Rate [ Apical] Pulse Rate [ Dorsalis Pedis] Respiratory 28 H 20 22 Rate Blood Pressure 112/82 117/76 O2 Sat by Pulse 99 100 Oximetry 06/23/19 06/24/19 06/24/19 22:56 00:49 05:03 Temperature 98.1 F 98.4 F Pulse Rate 129 H 130 H 128 H Pulse Rate [ Apical] Pulse Rate [ Dorsalis Pedis] Respiratory 16 22 16 Rate Blood Pressure 106/79 97/58 L O2 Sat by Pulse 98 99 Oximetry 06/24/19 06/24/19 06/24/19 05:07 08:00 13:50 Temperature 98.2 F Pulse Rate 128 H 115 H Pulse Rate [ 120 H Apical] Pulse Rate [ 110 H Dorsalis Pedis] Respiratory 16 14 18 Rate Blood Pressure 98/56 L 113/81 O2 Sat by Pulse 93 L Oximetry Constitutional: Appearance-Now without distress, Kussmaul breathing resolved Asleep on entry, easily awoken to name. Consistent with stated age. Orientation - Oriented x 3, alert GCS 15. Build and Nutrition-[BMI normal] General- Patient is pleasant and cooperative with the interview and exam. Rounded with patient 0715 12:15 today. Asleep on entry #1 but then awake and alert visit #2. Integumentary: No rash ENMT: Nares- bilateral quiet airflow, no discharge. Nasal mucosa- No bleeding noted and no ulcerations observed. [place], moist. Turbinates non boggy. Lips- normal color, moist without cracks/lesions Oral Cavity/Palate- hard/soft palate intact without lesions, oral mucosa pink and moist. Dentition assessed and discussed appropriate oral care. Tongue normal midline. Oropharynx- no pharyngeal erythema, Uvula midline. No post nasal drip. No exudate. Salivary glands- Non tender to palpation. Moist mucus membranes. CHEST/LUNG: Inspection- symmetric chest wall no pectus deformity. Normal effort , no distress, no use of accessory muscles. Palpation- nontender sternum, ribline. No abnormal pulsations. Auscultation- Breath sounds full. Deep inspiration/expiration. Normal tracheal sounds, Normal bronchial sounds overlying sternum, Bronchovessicular sounds normal between scapulae posteriorly , Normal vessicular breath sounds heard throughout periphery. Lungs are clear today. Adventitious sounds- No wheezes, rales, rhonchi. Calm breathing, Kussmaul resolved. CARDIOVASCULAR: Carotid artery- normal, no bruits or abnormal pulsations. Jugular vein- no pulsations. Palpation/Percussion- Normal PMI, no palpable thrill Auscultation- Tachycardia persists with normal rhythm. No murmur noted in sitting, supine positions. Extremities- no digital clubbing, cyanosis, edema, increased warmth. ABDOMEN: Inspection- normal and no visible pulsations. Normal contour. Auscultation- Bowel sounds normal, no abdominal bruits. Palpation/Percussion- soft, non-tender, no rebound tenderness, no rigidity (guarding), no jar tenderness, no masses. Peripheral Vascular: Upper extremity Left- Normal temperature with pink nailbeds and no ulcerations. Upper extremity Right- Normal temperature with pink nailbeds and no ulcerations. Lower extremity- Normal temperature with pink nailbeds and no ulcerations. DP pulses 2+ bilaterally. Pedal hair intact. Normal capillary refill. Edema- No edema. Musculoskeletal: Generalized-No generalized swelling or edema of extremities, no digital clubbing or cyanosis, neurovascularly intact all four extremities. Neurological: General- Moves all 4 extremities symmetrically. Symmetrical face and body posture. Cranial nerves- individually evaluated II-XII and intact. PERRLA, Normal EOMI, visual/special senses appear intact, Face is symmetrical and normal sensation/movement, normal tongue, normal strength/posture of neck musculature. Neuropsych: Oriented- Person, place, time. (AAOx3), Mood/affect- normal and congruent. Able to articulate well. Speech-Normal speech, normal rate, normal tone, normal use of language, volume and coherence. Thought content- normal with ability to perform basic computations and apply abstract thought/reason. Associations- intact, no SI/HI, no hallucinations, delusions, obsessions. Judgment/insight- Appropriate. Memory-Recall intact, remote and recent memory intact. Knowledge- Age appropriate fund of knowledge, concentration and attention span normal. Lymphatic: Head/Neck- normal size and non tender to palpation. Laboratory Last Values WBC 13.29 K/ul (4.6-10.2) H 06/24/19 05:23 RBC 5.12 10^6/ul (4.20-5.40) 06/24/19 05:23 Hgb 15.7 g/dl (12.0-16.0) 06/24/19 05:23 Hct 45.8 % (37.0-47.0) 06/24/19 05:23 MCV 89.5 fl (81.0-99.0) 06/24/19 05:23 MCH 30.7 pg (27.0-31.0) 06/24/19 05:23 MCHC 34.3 (31.8-35.4) 06/24/19 05:23 RDW Coeff of Ion 12.5 % (11.6-14.8) 06/24/19 05:23 Plt Count 284 10^3/uL (140-440) 06/24/19 05:23 Immature Gran % (Auto) 0.3 % (0.0-5.0) 06/24/19 05:23 Neut % (Auto) 59.9 06/24/19 05:23 Lymph % (Auto) 30.5 (10.0-50.0) 06/24/19 05:23 George % (Auto) 8.4 (0-10) 06/24/19 05:23 Eos % (Auto) 0.5 % (0.0-7.0) 06/24/19 05:23 Baso % (Auto) 0.4 % (0.0-3.0) 06/24/19 05:23 Immature Gran # (Auto) 0.0 (0.0-1.0) 06/24/19 05:23 Neut # (Auto) 8.0 K/ul (2.0-6.9) H 06/24/19 05:23 Lymph # (Auto) 4.1 K/uL (0.60-3.4) H 06/24/19 05:23 George # (Auto) 1.1 K/uL (0.4-2.0) 06/24/19 05:23 Eos # (Auto) 0.1 K/ul (0.0-0.7) 06/24/19 05:23 Baso # (Auto) 0.1 K/uL (0-0.2) 06/24/19 05:23 Puncture Site Rb 06/24/19 11:58 O2 Saturation 97.0 % (95-100) 06/24/19 11:58 ABG pH 7.264 (7.35-7.45) L* 06/24/19 11:58 ABG pCO2 31.3 mmHg (35-45) L 06/24/19 11:58 ABG pO2 105.0 mmHg (85-100) H 06/24/19 11:58 ABG HCO3 14.2 (22.0-26.0) L 06/24/19 11:58 ABG Total CO2 15 (22.0-28.0) L 06/24/19 11:58 ABG Base Excess -13 (-2.0-2.0) L 06/24/19 11:58 Ricky Test + 06/24/19 04:47 FiO2 % 21.0 % 06/24/19 11:58 Sodium 139.0 mmol/L (134.5-145) 06/24/19 12:50 Potassium 3.82 mmol/L (3.5-5.1) 06/24/19 12:50 Chloride 113.0 mmol/L (98-107) H 06/24/19 12:50 Carbon Dioxide 18.4 mmol/L (22-30.0) L 06/24/19 12:50 Anion Gap 11.42 06/24/19 12:50 BUN 4.0 mg/dL (7-17) L 06/24/19 12:50 Creatinine 0.49 mg/dL (0.60-1.30) L 06/24/19 12:50 Estimated GFR (MDRD) 158.00 mL/min 06/24/19 12:50 BUN/Creatinine Ratio 8.16 06/24/19 12:50 Glucose 220.2 mg/dL (74-106) H 06/24/19 12:50 Hemoglobin A1c 11.64 (4.0-6.0) H D 06/24/19 05:23 Calcium 8.65 mg/dL (8.4-10.2) 06/24/19 12:50 Magnesium 1.80 mg/dL (1.6-2.3) 06/24/19 02:01 Total Bilirubin 0.59 mg/dL (0.2-1.3) 06/24/19 05:23 AST 14.0 U/L (14-36) 06/24/19 05:23 ALT 14.2 U/L (0-35) 06/24/19 05:23 Alkaline Phosphatase 90.9 U/L (38-126) 06/24/19 05:23 Total Creatine Kinase 20.9 U/L (30-135) L 06/23/19 21:46 Total Protein 6.57 g/dL (6.3-8.2) 06/24/19 05:23 Albumin 3.89 g/dL (3.5-5.0) 06/24/19 05:23 Globulin 2.68 06/24/19 05:23 Albumin/Globulin Ratio 1.45 06/24/19 05:23 Serum , Qual Negative (NEGATIVE) 06/23/19 21:50 Urine Color Yellow (YELLOW) 06/24/19 00:15 Urine Clarity Clear (CLEAR) 06/24/19 00:15 Urine pH 5.5 (5-9) 06/24/19 00:15 Ur Specific [place] >=1.030 (1.005-1.030) 06/24/19 00:15 Urine Protein 1+ (NEGATIVE) 06/24/19 00:15 Urine Glucose (UA) 2+ (NEGATIVE) 06/24/19 00:15 Urine Ketones 4+ (NEGATIVE) 06/24/19 00:15 Urine Blood Negative (NEGATIVE) 06/24/19 00:15 Urine Nitrite Negative (NEGATIVE) 06/24/19 00:15 Urine Bilirubin 1+ (NEGATIVE) 06/24/19 00:15 Urine Urobilinogen 0.2 (0.2) 06/24/19 00:15 Ur Leukocyte Esterase Negative (NEGATIVE) 06/24/19 00:15 Urine Microscopic RBC 0-2 (0-2) 06/24/19 00:15 Urine Microscopic WBC 2-5 (0-2) 06/24/19 00:15 Ur Squamous Epith Cells 10-20 (0-5) 06/24/19 00:15 Hyaline Casts 0-2 (NOT PRESENT) 06/24/19 00:15 Urine Mucus 1+ (NOT PRESENT) 06/24/19 00:15 Urine Opiates Screen Negative (NEGATIVE) 06/24/19 00:15 Ur Oxycodone Screen Negative (NEGATIVE) 06/24/19 00:15 Urine Methadone Screen Negative (NEGATIVE) 06/24/19 00:15 Ur Propoxyphene Screen Negative (NEGATIVE) 06/24/19 00:15 Ur Barbiturates Screen Negative (NEGATIVE) 06/24/19 00:15 U Tricyclic Antidepress Negative (NEGATIVE) 06/24/19 00:15 Ur Phencyclidine Scrn Negative (NEGATIVE) 06/24/19 00:15 Ur Amphetamine Screen Negative (NEGATIVE) 06/24/19 00:15 U Methamphetamines Scrn Negative (NEGATIVE) 06/24/19 00:15 U Benzodiazepines Scrn Negative (NEGATIVE) 06/24/19 00:15 Urine Cocaine Screen Negative (NEGATIVE) 06/24/19 00:15 U Cannabinoids Screen Negative (NEGATIVE) 06/24/19 00:15 Acetone, Qual Small (NONE) 06/23/19 21:50 (1) DKA (diabetic ketoacidoses) Status: Acute Code(s): E13.10 - OTH DIABETES MELLITUS WITH KETOACIDOSIS WITHOUT COMA SNOMED Code(s): 004573255 (2) Abnormal ABGs Status: Acute Code(s): R79.81 - ABNORMAL BLOOD-GAS LEVEL SNOMED Code(s): 863101692 (3) Dehydration Status: Acute Code(s): E86.0 - DEHYDRATION SNOMED Code(s): 12711917 (4) Diabetes mellitus type 1, uncontrolled, insulin dependent Status: Acute Code(s): E10.65 - TYPE 1 DIABETES MELLITUS WITH HYPERGLYCEMIA SNOMED Code(s): 832915105 (5) Tachycardia Status: Acute Code(s): R00.0 - TACHYCARDIA, UNSPECIFIED SNOMED Code(s): 5850001 (6) Kussmaul breathing Status: Resolved Code(s): E87.2 - ACIDOSIS SNOMED Code(s): 193941177 Plan: DKA/Dehydration/DM1 poorly controlled: Improving, Gap is closing, urinating, fluids running at D5 1/2 NS +20 KCL 150/hour. She is improving with the current plan. Continue insulin drip today titrate to effect to see how many units of insulin she is needing. A1C returned as markedly elevated but better than last OV. Potassium is stable, on oral and IV K+. Goal 4-5. Continue Q 1 hour Accucheck today. ABG this pm f/u with results. ABG in am tomorrow f/u with results. - Admit inpatient status to SCU - Telemetry - BMP/CMP to monitor electrolytes. - Q 1 hour accucheck titrate drip to glucose 150-200 - Repeat ABG as above - CBC in am/CMP in am - Fluids D5 1/2NS +20meqKCL to continue - Insulin drip w/ titration to continue. Kussmaul Respirations: Resolved. Tachycardia: Suspect dehydration. Monitored tele. We will work on fluid hydration and f/u with results. - Telemetry Leukocytosis: Suspect dehydration, will monitor. - CBC in am. Dehydration: AG improving, ABG again in am tomorrow. Weigh patient in am tomorrow. Diet: Continue 1800 kcal ADA diet in am. NPO tonight DVT Prophy: Lovenox 40mg subcut today. Disposition: She continues to improve. The Gap is closing, ABG better, CBC better, CMP better. She is tolerating PO. Suspect discharge home in 48 hours if she continues to improve. Lovenox for DVT prophy. She feels she is happy with progress. Breathing has improved, she is a lot more comfortable. Her A1C returned at just under 12, suggesting this remains poorly controlled. >35 minutes spent with patient today, checked on her 2x this day. Reviewed labs/ telemetry/accucheck/ABG. Independent interpretation of ABG.
[2019-06-25] MEDS: D5%-1/2NS-KCL 20 MEQ/L IV SOL 1,000 ML IV SCH ×2 (03:10→09:13)
[2019-06-25] MEDS: LOVENOX SUBCUT SCH (08:52)
[2019-06-25] MEDS: HUMULIN R 100 UNIT in SODIUM CHLORIDE 100 ML IV SCH (09:09)
[2019-06-25] MEDS: K-DUR PO SCH ×4 (09:09→17:03)
--- NOTE | 2019-06-25 09:16 | PCM.PROG ---
Subjective: 24yo CF HD #3 DKA, hyperglycemia, dehydration, poorly controlled IDDM Type 1 A1C 11.64. The patient has been on insulin drip and D51/2NS since admission as her sugars already ~200. Labs this am showed normalized CBC WBC 8.49, hgb 13.4, plt 221, improved from the 13.29, 15.7, 284 yesterday, likely dilutional effect. She has not been weighed in 48 hours, will weigh her this am. ABG this am showed pH normal 7.446, pc02 30.1, hc03 20.8, co2 22 and base excess -3. The acidosis has resolved. Now primary respiratory alkalosis with appropriate compensated metabolic acidosis. BMP last night 23:05 completed and sodium 140.1 , K+ 3.51, cl 110.4, creatinine 0.50, glucose 133.3, Calcium 8.80. CMP this am Sodium 139.8, potassium 3.42, creatinine 0.48, glucose 137.6. Albumin this am 3.05. Currently the anion gap is 5.8mEq/L and closed, delta gap: -6.2 mEq/L and since gap <11 it is normal. ABG has essentially normalized as well. Vitals HR on 06/24/19 114-130, so far today she is 111-116. She remains afebrile. BP normal/stable 97-115/56-81. Remains sinus tachy on Telemetry, reviewed personally. Reviewed ABG as noted above personally. I+O data reviewed from net balance of 787 ml with ~3.8L in and 3L out. Received call from Nurse flores last night that her insulin was not titrated yesterday. We discussed titration every 2-3 hours if needed. Sugars from 1500 yesterday 214, 241, 268, 260,261,257,215,161,131,104,91,127,188,138,128,140,154,154. Her sugars normalized with the increased insulin. I will stop the drip, add q 2 hour correctional insulin and likely plan to d/c patient in am tomorrow with her home dosing. Resume lantus 60 today as well. Reviewed overnight nursing notes, talked with am nurse. Her insulin drip was increased to 4 units per hour 2256 bg 257. She needs somewhere in the realm of 72-96 units total of insulin in 24 hours. As noted, I will change her to q 2 hour accuchecks until 1500 then q 4 hour and as noted plan to d/c in am tomorrow. She ate 50% of breakfast, 100% lunch refused dinner. She at 50% of breakfast 06/25/19 am. We will saline lock the IV as tolerating PO, accucheck q 2 hours until 1500, then q 4 hours. Correctional insulin, resume lantus. CMP in am. Continue lovenox for DVT prophy. Review of Systems Constitutional: Now denies weakness, sweats, fatigue, loss of appetite. Still w/ o fever, chills, Eyes: No: blurred vision, double-vision, discharge, itching, pain, redness, photophobia, other Ears: No: pain, bleeding, drainage, ringing, hearing loss, other Nose: No: bleeding, congestion, discharge, other Throat: No: pain, swelling, voice change, other Mouth: No: bleeding, pain, swelling, other Respiratory: No shortness of air, other (kussmaal resolved) Cardiovascular: No: chest pain, left arm pain, diaphoresis, PND, orthopnea, edema, palpitations, syncope, other Gastrointestinal: No: nausea, abdominal pain,vomiting. other, diarrhea, melena , hematemesis, hematochezia, dysphagia, constipation Genitourinary: No: dysuria, hematuria, frequency, incontinence, flank pain, vaginal discharge, abnormal bleeding, pelvic pain Neurological: No: headache, dizziness, weakness. seizure, numbness, speech difficulty, problems with walking, tremor, fainting Musculoskeletal: No: pain. swelling in joints, other Skin: No: pruritus, lacerations, wounds, bruising, other Immunology: No: hives, itching, frequent infections, difficulty healing, other Hematology: No: easy bruising, easy bleeding, swollen glands, other Endocrine: No weight changes, excessive thirst. excessive hunger Psychiatric: No: depression, anxiety, sleeplessness, hopelessness, suicidal, hallucinations, other Habits: No substance, tobacco use, alcohol use, other Objective: Vital Signs - 24 hr 06/24/19 06/24/19 06/24/19 13:50 20:00 20:56 Temperature 98.2 F Pulse Rate 115 H 114 H Pulse Rate [ 125 H Apical] Pulse Rate [ 125 H Dorsalis Pedis] Respiratory 18 20 21 Rate Blood Pressure 113/81 O2 Sat by Pulse 93 L Oximetry 06/24/19 06/25/19 06/25/19 21:48 02:07 05:08 Temperature 98.0 F 98.1 F 98.6 F Pulse Rate 111 H 116 H 112 H Pulse Rate [ Apical] Pulse Rate [ Dorsalis Pedis] Respiratory 18 20 15 Rate Blood Pressure 110/81 104/71 115/63 O2 Sat by Pulse 100 100 97 Oximetry 06/25/19 06/25/19 06/25/19 07:44 08:13 09:09 Temperature Pulse Rate 111 H 110 H Pulse Rate [ 113 H Apical] Pulse Rate [ Dorsalis Pedis] Respiratory 18 20 19 Rate Blood Pressure O2 Sat by Pulse Oximetry Constitutional: Appearance-Now without distress, Kussmaul breathing resolved Awake upon entry, Consistent with stated age. Orientation- Oriented x 3, alert GCS 15. Build and Nutrition-[BMI normal] General- Patient is pleasant and cooperative with the interview and exam. Rounded with patient 0909:40. Integumentary: No rash ENMT: Nares- bilateral quiet airflow, no discharge. Nasal mucosa- No bleeding noted and no ulcerations observed. [place], moist. Turbinates non boggy. Lips- normal color, moist without cracks/lesions Oral Cavity/Palate- hard/soft palate intact without lesions, oral mucosa pink and moist. Dentition assessed and discussed appropriate oral care. Tongue normal midline. Oropharynx- no pharyngeal erythema, Uvula midline. No post nasal drip. No exudate. Salivary glands- Non tender to palpation. Moist mucus membranes. CHEST/LUNG: Inspection- symmetric chest wall no pectus deformity. Normal effort , no distress, no use of accessory muscles. Palpation- nontender sternum, ribline. No abnormal pulsations. Auscultation- Breath sounds full. Deep inspiration/expiration. Normal tracheal sounds, Normal bronchial sounds overlying sternum, Bronchovessicular sounds normal between scapulae posteriorly , Normal vessicular breath sounds heard throughout periphery. Lungs are clear today. Adventitious sounds- No wheezes, rales, rhonchi. Calm breathing, CARDIOVASCULAR: Carotid artery- normal, no bruits or abnormal pulsations. Jugular vein- no pulsations. Palpation/Percussion- Normal PMI, no palpable thrill Auscultation- Tachycardia persists with normal rhythm. No murmur noted in sitting, supine positions. Extremities- no digital clubbing, cyanosis, edema, increased warmth. ABDOMEN: Inspection- normal and no visible pulsations. Normal contour. Auscultation- Bowel sounds normal, no abdominal bruits. Palpation/Percussion- soft, non-tender, no rebound tenderness, no rigidity (guarding), no jar tenderness, no masses. Peripheral Vascular: IV site Left AC intact, no concern. Lower extremity- Normal temperature with pink nailbeds and no ulcerations. DP pulses 2+ bilaterally. Pedal hair intact. Normal capillary refill. Edema- No edema. Musculoskeletal: Generalized-No generalized swelling or edema of extremities, no digital clubbing or cyanosis, neurovascularly intact all four extremities. Neurological: General- Moves all 4 extremities symmetrically. Symmetrical face and body posture. Cranial nerves- individually evaluated II-XII and intact. PERRLA, Normal EOMI, visual/special senses appear intact, Face is symmetrical and normal sensation/movement, normal tongue, normal strength/posture of neck musculature. Neuropsych: Oriented- Person, place, time. (AAOx3), Mood/affect- normal and congruent. Able to articulate well. Speech-Normal speech, normal rate, normal tone, normal use of language, volume and coherence. Thought content- normal with ability to perform basic computations and apply abstract thought/reason. Associations- intact, no SI/HI, no hallucinations, delusions, obsessions. Judgment/insight- Appropriate. Memory-Recall intact, remote and recent memory intact. Knowledge- Age appropriate fund of knowledge, concentration and attention span normal. Lymphatic: Head/Neck- normal size and non tender to palpation. Laboratory Last Values WBC 8.49 K/ul (4.6-10.2) 06/25/19 04:40 RBC 4.44 10^6/ul (4.20-5.40) 06/25/19 04:40 Hgb 13.4 g/dl (12.0-16.0) 06/25/19 04:40 Hct 39.2 % (37.0-47.0) D 06/25/19 04:40 MCV 88.3 fl (81.0-99.0) 06/25/19 04:40 MCH 30.2 pg (27.0-31.0) 06/25/19 04:40 MCHC 34.2 (31.8-35.4) 06/25/19 04:40 RDW Coeff of Ion 12.4 % (11.6-14.8) 06/25/19 04:40 Plt Count 221 10^3/uL (140-440) 06/25/19 04:40 Immature Gran % (Auto) 0.4 % (0.0-5.0) 06/25/19 04:40 Neut % (Auto) 47.7 06/25/19 04:40 Lymph % (Auto) 38.2 (10.0-50.0) 06/25/19 04:40 Elbert % (Auto) 11.7 (0-10) H 06/25/19 04:40 Eos % (Auto) 1.4 % (0.0-7.0) 06/25/19 04:40 Baso % (Auto) 0.6 % (0.0-3.0) 06/25/19 04:40 Immature Gran # (Auto) 0.0 (0.0-1.0) 06/25/19 04:40 Neut # (Auto) 4.1 K/ul (2.0-6.9) 06/25/19 04:40 Lymph # (Auto) 3.2 K/uL (0.60-3.4) 06/25/19 04:40 Elbert # (Auto) 1.0 K/uL (0.4-2.0) 06/25/19 04:40 Eos # (Auto) 0.1 K/ul (0.0-0.7) 06/25/19 04:40 Baso # (Auto) 0.1 K/uL (0-0.2) 06/25/19 04:40 Puncture Site Lb 06/25/19 06:00 O2 Saturation 95.0 % (95-100) 06/25/19 06:00 ABG pH 7.446 (7.35-7.45) 06/25/19 06:00 ABG pCO2 30.1 mmHg (35-45) L 06/25/19 06:00 ABG pO2 69.0 mmHg (85-100) L 06/25/19 06:00 ABG HCO3 20.8 (22.0-26.0) L 06/25/19 06:00 ABG Total CO2 22 (22.0-28.0) 06/25/19 06:00 ABG Base Excess -3 (-2.0-2.0) L 06/25/19 06:00 Ricky Test + 06/25/19 06:00 FiO2 % 21.0 % 06/25/19 06:00 Sodium 139.8 mmol/L (134.5-145) 06/25/19 04:40 Potassium 3.42 mmol/L (3.5-5.1) L 06/25/19 04:40 Chloride 109.6 mmol/L (98-107) H 06/25/19 04:40 Carbon Dioxide 24.4 mmol/L (22-30.0) 06/25/19 04:40 Anion Gap 9.22 06/25/19 04:40 BUN 4.1 mg/dL (7-17) L 06/25/19 04:40 Creatinine 0.48 mg/dL (0.60-1.30) L 06/25/19 04:40 Estimated GFR (MDRD) 162.00 mL/min 06/25/19 04:40 BUN/Creatinine Ratio 8.54 06/25/19 04:40 Glucose 137.6 mg/dL (74-106) H 06/25/19 04:40 Hemoglobin A1c 11.64 (4.0-6.0) H D 06/24/19 05:23 Calcium 8.75 mg/dL (8.4-10.2) 06/25/19 04:40 Magnesium 1.80 mg/dL (1.6-2.3) 06/24/19 02:01 Total Bilirubin 0.31 mg/dL (0.2-1.3) 06/25/19 04:40 AST 19.5 U/L (14-36) 06/25/19 04:40 ALT 15.3 U/L (0-35) 06/25/19 04:40 Alkaline Phosphatase 73.9 U/L (38-126) 06/25/19 04:40 Total Creatine Kinase 20.9 U/L (30-135) L 06/23/19 21:46 Total Protein 5.42 g/dL (6.3-8.2) L 06/25/19 04:40 Albumin 3.05 g/dL (3.5-5.0) L 06/25/19 04:40 Globulin 2.37 06/25/19 04:40 Albumin/Globulin Ratio 1.28 06/25/19 04:40 Serum , Qual Negative (NEGATIVE) 06/23/19 21:50 Urine Color Yellow (YELLOW) 06/24/19 00:15 Urine Clarity Clear (CLEAR) 06/24/19 00:15 Urine pH 5.5 (5-9) 06/24/19 00:15 Ur Specific Colo >=1.030 (1.005-1.030) 06/24/19 00:15 Urine Protein 1+ (NEGATIVE) 06/24/19 00:15 Urine Glucose (UA) 2+ (NEGATIVE) 06/24/19 00:15 Urine Ketones 4+ (NEGATIVE) 06/24/19 00:15 Urine Blood Negative (NEGATIVE) 06/24/19 00:15 Urine Nitrite Negative (NEGATIVE) 06/24/19 00:15 Urine Bilirubin 1+ (NEGATIVE) 06/24/19 00:15 Urine Urobilinogen 0.2 (0.2) 06/24/19 00:15 Ur Leukocyte Esterase Negative (NEGATIVE) 06/24/19 00:15 Urine Microscopic RBC 0-2 (0-2) 06/24/19 00:15 Urine Microscopic WBC 2-5 (0-2) 06/24/19 00:15 Ur Squamous Epith Cells 10-20 (0-5) 06/24/19 00:15 Hyaline Casts 0-2 (NOT PRESENT) 06/24/19 00:15 Urine Mucus 1+ (NOT PRESENT) 06/24/19 00:15 Urine Opiates Screen Negative (NEGATIVE) 06/24/19 00:15 Ur Oxycodone Screen Negative (NEGATIVE) 06/24/19 00:15 Urine Methadone Screen Negative (NEGATIVE) 06/24/19 00:15 Ur Propoxyphene Screen Negative (NEGATIVE) 06/24/19 00:15 Ur Barbiturates Screen Negative (NEGATIVE) 06/24/19 00:15 U Tricyclic Antidepress Negative (NEGATIVE) 06/24/19 00:15 Ur Phencyclidine Scrn Negative (NEGATIVE) 06/24/19 00:15 Ur Amphetamine Screen Negative (NEGATIVE) 06/24/19 00:15 U Methamphetamines Scrn Negative (NEGATIVE) 06/24/19 00:15 U Benzodiazepines Scrn Negative (NEGATIVE) 06/24/19 00:15 Urine Cocaine Screen Negative (NEGATIVE) 06/24/19 00:15 U Cannabinoids Screen Negative (NEGATIVE) 06/24/19 00:15 Acetone, Qual Small (NONE) 06/23/19 21:50 (1) DKA (diabetic ketoacidoses) Status: Acute Code(s): E13.10 - OTH DIABETES MELLITUS WITH KETOACIDOSIS WITHOUT COMA SNOMED Code(s): 698493477 (2) Abnormal ABGs Status: Acute Code(s): R79.81 - ABNORMAL BLOOD-GAS LEVEL SNOMED Code(s): 233150656 (3) Dehydration Status: Acute Code(s): E86.0 - DEHYDRATION SNOMED Code(s): 75868870 (4) Diabetes mellitus type 1, uncontrolled, insulin dependent Status: Acute Code(s): E10.65 - TYPE 1 DIABETES MELLITUS WITH HYPERGLYCEMIA SNOMED Code(s): 543557723 (5) Tachycardia Status: Acute Code(s): R00.0 - TACHYCARDIA, UNSPECIFIED SNOMED Code(s): 6831269 (6) Kussmaul breathing Status: Resolved Code(s): E87.2 - ACIDOSIS SNOMED Code(s): 369367281 Plan: DKA/Dehydration/DM1 poorly controlled: She did much better last evening with titration of her insulin drip. 3units/hr=~72 units, 4 units/hr=~96 units. I suspect she will need somewhere in the ballpark of 80. Discussed her last d/c with 60 lantus and 7 with each meal=81 is about that goal. Discussed sick time insulin use. Discussed ketone strips, discussed if feeling poorly, nauseated, if hyperglycemia, to start checking every 1-2 hours and we can provide correction for her so that she does not get worse. She agreed and understood. She noted today that she has been taking insulin. Gap is closed, urinating, fluids running at D5 1/2 NS +20 KCL 150/hour. Saline lock these, change her accuchecks to q 2 hours until this afternoon. Correctional insulin ordered. K+ cl- PO TID with meals. She was very happy with this change. Stop ABG. Will get another CMP in am tomorrow. - Continue inpatient status to SCU plan d/c tomorrow am - Telemetry - CMP in am tomorrow - D/C Q 1 hour accucheck, d/c drip. We will move to q 2 hour until this afternoon ~1500 then go to q 4 hours. Tomorrow plan to d/c again with lantus 60units and admelog 7 w/ each meal and correctional. Needs close OP f/u. - D/C Fluids D5 1/2NS +20meqKCL and saline lock Kussmaul Respirations: Resolved. Leukocytosis: Resolved. Hypokalemia: Increased to TID K+CL- 20meq with meal. Tachycardia: Suspect chronic process. No e/o dehydration now. - Monitor Telemetry Dehydration: Markedly improved. Weigh patient. 112 at admit. Diet: Continue 1800 kcal ADA diet in am. NPO tonight DVT Prophy: Lovenox 40mg subcut today. Disposition: She continues to improve. The Gap appears closed. ABG pH normal, overall better, CBC better, CMP better. K+ mildly low, She is tolerating PO. Suspect discharge home in am tomorrow if she continues to improve. Lovenox for DVT prophy. She feels she is happy with progress. Breathing has improved, she is a lot more comfortable. Discussed insulin, discussed sick time care, discussed need to check more freq if feeling poorly. Reviewed labs/telemetry/ accucheck/ABG. Independent interpretation of ABG. >35 minutes spent rounding on patient today.
[2019-06-25] MEDS: LANTUS SUBCUT SCH ×2 (11:17→21:02)
[2019-06-25] MEDS: HUMULIN R SUBCUT PRN ×4 (11:21→17:01)
[2019-06-26 05:16] VITALS: BP 110/80; TEMP 98.3
[2019-06-26] MEDS: K-DUR PO SCH (08:28)
[2019-06-26] MEDS: LOVENOX SUBCUT SCH (08:29)
--- NOTE | 2019-06-26 09:19 | PCM.DC ---
Final Diagnosis: DKA (diabetic ketoacidoses) (Acute) Abnormal ABGs (Acute) Dehydration (Acute) Diabetes mellitus type 1, uncontrolled, insulin dependent (Acute) Hyperglycemia due to type 1 diabetes mellitus (Acute) Tachycardia (Acute) Leukocytosis Hypokalemia Kussmaul Respirations (Resolved) (1) DKA (diabetic ketoacidoses) Status: Resolved Code(s): E13.10 - OTH DIABETES MELLITUS WITH KETOACIDOSIS WITHOUT COMA SNOMED Code(s): 905520895, 771482470 Qualifiers: Diabetes mellitus type: type 1 Diabetes mellitus complication detail: without coma Qualified Code(s): E10.10 - Type 1 diabetes mellitus with ketoacidosis without coma (2) Abnormal ABGs Status: Resolved Code(s): R79.81 - ABNORMAL BLOOD-GAS LEVEL SNOMED Code(s): 018336382 (3) Dehydration Status: Resolved Code(s): E86.0 - DEHYDRATION SNOMED Code(s): 28390458 (4) Diabetes mellitus type 1, uncontrolled, insulin dependent Status: Chronic Code(s): E10.65 - TYPE 1 DIABETES MELLITUS WITH HYPERGLYCEMIA SNOMED Code(s): 684508896, 961212152 (5) Tachycardia Status: Chronic Code(s): R00.0 - TACHYCARDIA, UNSPECIFIED SNOMED Code(s): 6033475 (6) Kussmaul breathing Status: Resolved Code(s): E87.2 - ACIDOSIS SNOMED Code(s): 545647383 (7) Hypokalemia Status: Acute Code(s): E87.6 - HYPOKALEMIA SNOMED Code(s): 64125625 Reason for Hospitalization: DKA, Kussmaul Respirations, IDDM 1 poorly controlled with hyperglycemia, leukocytosis, hypokalemia. Prognosis at Discharge: Markedly improved. Sugars 150-200 by discharge on home insulin. Condition at Discharge: Stable/Improved. Medications at Discharge: Ambulatory Orders Medication Instructions Recorded Insulin Glargine,Hum.rec.anlog 60 unit SQ BEDTIME #2 vial 05/05/19 [Basaglar] Admelog 7 - 15 unit SUBCUT PRN PRN #3 06/26/19 Potassium Chloride [K-Dur] 20 meq PO BIDWM 30 Days #60 tab 06/26/19 Lab/Diagnostics: Laboratory Last Values WBC 8.49 K/ul (4.6-10.2) 06/25/19 04:40 RBC 4.44 10^6/ul (4.20-5.40) 06/25/19 04:40 Hgb 13.4 g/dl (12.0-16.0) 06/25/19 04:40 Hct 39.2 % (37.0-47.0) D 06/25/19 04:40 MCV 88.3 fl (81.0-99.0) 06/25/19 04:40 MCH 30.2 pg (27.0-31.0) 06/25/19 04:40 MCHC 34.2 (31.8-35.4) 06/25/19 04:40 RDW Coeff of Ion 12.4 % (11.6-14.8) 06/25/19 04:40 Plt Count 221 10^3/uL (140-440) 06/25/19 04:40 Immature Gran % (Auto) 0.4 % (0.0-5.0) 06/25/19 04:40 Neut % (Auto) 47.7 06/25/19 04:40 Lymph % (Auto) 38.2 (10.0-50.0) 06/25/19 04:40 Mineral % (Auto) 11.7 (0-10) H 06/25/19 04:40 Eos % (Auto) 1.4 % (0.0-7.0) 06/25/19 04:40 Baso % (Auto) 0.6 % (0.0-3.0) 06/25/19 04:40 Immature Gran # (Auto) 0.0 (0.0-1.0) 06/25/19 04:40 Neut # (Auto) 4.1 K/ul (2.0-6.9) 06/25/19 04:40 Lymph # (Auto) 3.2 K/uL (0.60-3.4) 06/25/19 04:40 Mineral # (Auto) 1.0 K/uL (0.4-2.0) 06/25/19 04:40 Eos # (Auto) 0.1 K/ul (0.0-0.7) 06/25/19 04:40 Baso # (Auto) 0.1 K/uL (0-0.2) 06/25/19 04:40 Puncture Site Lb 06/25/19 06:00 O2 Saturation 95.0 % (95-100) 06/25/19 06:00 ABG pH 7.446 (7.35-7.45) 06/25/19 06:00 ABG pCO2 30.1 mmHg (35-45) L 06/25/19 06:00 ABG pO2 69.0 mmHg (85-100) L 06/25/19 06:00 ABG HCO3 20.8 (22.0-26.0) L 06/25/19 06:00 ABG Total CO2 22 (22.0-28.0) 06/25/19 06:00 ABG Base Excess -3 (-2.0-2.0) L 06/25/19 06:00 Ricky Test + 06/25/19 06:00 FiO2 % 21.0 % 06/25/19 06:00 Sodium 140.5 mmol/L (134.5-145) 06/26/19 04:22 Potassium 3.43 mmol/L (3.5-5.1) L 06/26/19 04:22 Chloride 104.1 mmol/L (98-107) 06/26/19 04:22 Carbon Dioxide 31.1 mmol/L (22-30.0) H 06/26/19 04:22 Anion Gap 8.73 06/26/19 04:22 BUN 7.6 mg/dL (7-17) 06/26/19 04:22 Creatinine 0.46 mg/dL (0.60-1.30) L 06/26/19 04:22 Estimated GFR (MDRD) 170.00 mL/min 06/26/19 04:22 BUN/Creatinine Ratio 16.52 06/26/19 04:22 Glucose 124.6 mg/dL (74-106) H 06/26/19 04:22 Hemoglobin A1c 11.64 (4.0-6.0) H D 06/24/19 05:23 Calcium 9.19 mg/dL (8.4-10.2) 06/26/19 04:22 Magnesium 1.80 mg/dL (1.6-2.3) 06/24/19 02:01 Total Bilirubin 0.28 mg/dL (0.2-1.3) 06/26/19 04:22 AST 28.0 U/L (14-36) 06/26/19 04:22 ALT 21.3 U/L (0-35) 06/26/19 04:22 Alkaline Phosphatase 95.1 U/L (38-126) 06/26/19 04:22 Total Creatine Kinase 20.9 U/L (30-135) L 06/23/19 21:46 Total Protein 5.75 g/dL (6.3-8.2) L 06/26/19 04:22 Albumin 3.32 g/dL (3.5-5.0) L 06/26/19 04:22 Globulin 2.43 06/26/19 04:22 Albumin/Globulin Ratio 1.36 06/26/19 04:22 Serum , Qual Negative (NEGATIVE) 06/23/19 21:50 Urine Color Yellow (YELLOW) 06/24/19 00:15 Urine Clarity Clear (CLEAR) 06/24/19 00:15 Urine pH 5.5 (5-9) 06/24/19 00:15 Ur Specific [place] >=1.030 (1.005-1.030) 06/24/19 00:15 Urine Protein 1+ (NEGATIVE) 06/24/19 00:15 Urine Glucose (UA) 2+ (NEGATIVE) 06/24/19 00:15 Urine Ketones 4+ (NEGATIVE) 06/24/19 00:15 Urine Blood Negative (NEGATIVE) 06/24/19 00:15 Urine Nitrite Negative (NEGATIVE) 06/24/19 00:15 Urine Bilirubin 1+ (NEGATIVE) 06/24/19 00:15 Urine Urobilinogen 0.2 (0.2) 06/24/19 00:15 Ur Leukocyte Esterase Negative (NEGATIVE) 06/24/19 00:15 Urine Microscopic RBC 0-2 (0-2) 06/24/19 00:15 Urine Microscopic WBC 2-5 (0-2) 06/24/19 00:15 Ur Squamous Epith Cells 10-20 (0-5) 06/24/19 00:15 Hyaline Casts 0-2 (NOT PRESENT) 06/24/19 00:15 Urine Mucus 1+ (NOT PRESENT) 06/24/19 00:15 Urine Opiates Screen Negative (NEGATIVE) 06/24/19 00:15 Ur Oxycodone Screen Negative (NEGATIVE) 06/24/19 00:15 Urine Methadone Screen Negative (NEGATIVE) 06/24/19 00:15 Ur Propoxyphene Screen Negative (NEGATIVE) 06/24/19 00:15 Ur Barbiturates Screen Negative (NEGATIVE) 06/24/19 00:15 U Tricyclic Antidepress Negative (NEGATIVE) 06/24/19 00:15 Ur Phencyclidine Scrn Negative (NEGATIVE) 06/24/19 00:15 Ur Amphetamine Screen Negative (NEGATIVE) 06/24/19 00:15 U Methamphetamines Scrn Negative (NEGATIVE) 06/24/19 00:15 U Benzodiazepines Scrn Negative (NEGATIVE) 06/24/19 00:15 Urine Cocaine Screen Negative (NEGATIVE) 06/24/19 00:15 U Cannabinoids Screen Negative (NEGATIVE) 06/24/19 00:15 Acetone, Qual Small (NONE) 06/23/19 21:50 Na/K Trends 06/23/19 06/24/19 06/24/19 Range/Units 21:46 02:01 05:23 Sodium 140.0 139.2 139.9 (134.5-145) mmol/L Potassium 3.98 4.16 3.72 (3.5-5.1) mmol/L 06/24/19 06/24/19 06/24/19 Range/Units 12:50 18:12 23:05 Sodium 139.0 137.7 140.1 (134.5-145) mmol/L Potassium 3.82 3.80 3.51 (3.5-5.1) mmol/L 06/25/19 06/26/19 Range/Units 04:40 04:22 Sodium 139.8 140.5 (134.5-145) mmol/L Potassium 3.42 L 3.43 L (3.5-5.1) mmol/L ABG Jun 24Jun 24Jun 25Jun 17 sat 98 97 97 95 pH 7.138 7.211 7.264 7.446 pc02 12.6 22.6 31.3 30.1 po2 125 110 105 69 hco3 4.3 9.1 14.2 20.8 total co2 <5 10 15 22 ricky test + + + + FIO2 21 21 21 CXR: negative for acute processes. Education Provided to Patient and Family: 1. IDDM 2. Insulin: Healthy and Sick 3. BP goals 4. DM goals 5. Cholesterol goals 6. Hypokalemia Follow-ups: 1. Dr. Howell in ~7 days. Disposition: HOME SELF-CARE Hospital Course: 24 yo CF patient of Claudia Rand known to me through recent hospital stay 05/02- with DKA presented to ED again 06/23/19 21:14 with worsening dehydration, BG > 300's and nauseated. She came in as walk-in with family. Vitals upon arrival included temp 98, pulse 147, rr 28, 112/82, pulse ox 99%. She is respiring with kusmaal breathing. Subsequent vitals 21:39 pulse 134, rr 20, 21:48 pulse 132, RR 22, BP 117/76, pulse 100. Labs reviewed and WBC 12.73, hgb 17.3, hct 50.5 and plt 279. CMP showed sodium 140, K+ 3.98, cl 108.9, CO2 5.8, BUN 10.4, Cr 0.82 and glucose 284. ABG was completed and pH 7.138, pc02 12.6, po2 125, hco3 4.3, allens test +. Independent interpretation of the ABG showed an anion gap metabolic acidosis primary with secondary respiratory alkalosis and non gap met acid as well. Acetone returned small, test negative. Anuric. They had difficulty getting an IV placed and were able to complete a 24G with 350ml/hr flow. She was given zofran, started on fluids and by the time DR. Seymour called me she had ~350 ml intake. For the past 48 hours she has had worsening symptoms of fatigue, nausea and just not feeling well. Sx mild to moderate, recent illness, history of DM1 insulin dependent and history of DKA. I have seen her only in hospital and never in clinic. She presented with dry mucus membranes, kussmaul respirations, GCS 15, EKG completed and WNL. She had malaise, weakness, loss of appetite, tachypnea, anxiety. She has had multiple DKA in her life and this is the second that I have cared for. LMP 2 weeks ago, negative as listed above. She was placed on heating element builder with Sinus tachy, EKG related same sinus tachy. W/ Hydration started, she was feeling better. She had given self 12 units of insulin prior to arrival and sugars were not that far off. However, she is clinically dry. Labs showed hemoconcentration and the vitals supported same result. Fluids did help her to improve some and it was felt inpatient admission for DKA was warranted. I was contacted at 22:20 and saw patient in room SCU-2. CXR reviewed personally and no acute process, bony windows normal. Radiology review became available after personally reviewing the images and congruent with my interpretation of no active process and No e/o pneumonia. Further query about her recent illness she noted that she awoke am 06/23/19 around 1-2 am and felt nauseated and was breathing weird. She had urine ketone strips at home but was unable to find them. No emesis, no diarrhea, no urinary symptoms. Period 2 weeks ago normal for patient. Sexually active but not currently. Mildly stuffy nose, mild sore throat. Last worked last week, was supposed to work 06/21/19 but daughter Argelia had caudal regression and had surgery, had to go back in and fix scar tissue from the prior surgery 10/2018. Stress is up, no ETOH. No drug use. She was at hospital with daughter same day on 06/21/19. She did not eat or drink much while daughter in hospital/surgery and she had increased stress. She is now recovering, which is a blessing. She was brought into ER by mother joe. Lives at home with mother and daughter. They were able to get a 24G into her She notes that she is around 120 normally. She thinks her current weight may be close to baseline but I think she is probably down around 5 lb at minimum (2L). HD #2 06/24/19: She admitted to me this am about not caring for self recently, allowing her sugars to mostly do what they want, not taking meds regularly. She was admitted late last night and had some broth, liquids/water and reported no N/V/D. She was able to urinate, UDS was negative, UA with SG 1.030, glucose 2+, Ketones 4+. I+O so far 1420 in documented and 1000 output. Accuchecks 357/ 204/180/307/309/319/251/243/188. She is on insulin drip with goal to maintain 150-200. Pulse 128-130 overnight was 118 in room SCU-2 at 7:10 this am. BP have been okay to mildly low 117/76, 106/79, 97/58, 98/56. Temp 98.4, RR 16-22 , Reviewed telemetry overnight and she was sinus tach and persists now this am as ST. CBC Reviewed this am and her WBC has increased slightly from 12.73 to 13.29. Her hgb is down to 15.7 and plt increased to 284. Her ABG this am increased ph from 7.138 to 7.211, the pC02 from 12.6 to 22.6, Hco3 from 4.3 to 9.1. Co2 from less than 5 to 10. Base excess improved from -25 to -19. BMP was checked at 02:00 and now a CMP at 05:30. BMP at 02:01 showed normal sodium , K+ up to 4.16, co2 up from 5.8 to 7.1. Glucose up to 319.7. Her A1C returned 11.64. Magnesium returned normal at 1.8. CMP this am showed co2 up from the 7.1 at 02:00 to 14.7 which was a good change. Glucose 243.1. Calcium was 8.80, corrected to calcium 8.9. Corrected sodium 143-144 based on [place]/ Phi equations. New ABG again showed primary metabolic acidosis but now had appropriate compensated respiratory alkalosis w/ additional non gap acidosis. Overnight nurses note reviewed and no new c/o. Patient resting comfortably upon entry. The patient awoke easily and was conversant kussmaul breathing has resolved. She has no odor of ketones. She is improving. WE discussed her A1C, discussed chronic diabetes control and she noted that she was actually surprised it was this good. Patient rounded upon again at noon. Her repeat ABG this afternoon improved further from pH 7.211 up to 7.264. Pc02 up to 31.3 , po2 up to 31.3, hc03 up to 14.2 and base excess -19 to -13. Chemistry panel sodium stable 139 at 12:50, K+ 3.82, Cl 113, C02 up to 18.4 from 14.7, creainine 0.49, glucose 220.2. Calcium 8.65. Since 11:00 q 1 hour accucheck 254, 223,231,218,214,241. She is on insulin drip, which will be d/c in the am. HD #3 06/25/19: The patient has been on insulin drip and D51/2NS since admission as her sugars already ~200. Labs this am showed normalized CBC WBC 8.49, hgb 13.4, plt 221, improved from the 13.29, 15.7, 284 yesterday, likely dilutional effect. She has not been weighed in 48 hours, will weigh her this am. ABG this am showed pH normal 7.446, pc02 30.1, hc03 20.8, co2 22 and base excess -3. The acidosis has resolved. Now primary respiratory alkalosis with appropriate compensated metabolic acidosis. BMP last night 23:05 completed and sodium 140.1, K+ 3.51, cl 110.4, creatinine 0.50, glucose 133.3, Calcium 8.80. CMP this am Sodium 139.8, potassium 3.42, creatinine 0.48, glucose 137.6. Albumin this am 3.05. Currently the anion gap is 5.8mEq/L and closed, delta gap : -6.2 mEq/L and since gap <11 it is normal. ABG has essentially normalized as well. Vitals HR on 06/24/19 114-130, so far today she is 111-116. She remains afebrile. BP normal/stable 97-115/56-81. Remains sinus tachy on Telemetry, reviewed personally. Reviewed ABG as noted above personally. I+O data reviewed from 06/24/19 net balance of 787 ml with ~3.8L in and 3L out. Received call from Nurse flores last night that her insulin was not titrated yesterday. We discussed titration every 2-3 hours if needed. Sugars from 1500 yesterday 214, 241, 268,260,261, 257,215,161, 131,104,91,127, 188,138, 128,140, 154,154. Her sugars normalized with the increased insulin. I will stop the drip, add q 2 hour correctional insulin and likely plan to d/c patient in am tomorrow with her home dosing. Resume lantus 60 today as well. Reviewed overnight nursing notes, talked with am nurse. Her insulin drip was increased to 4 units per hour 2256 bg 257. She needs somewhere in the realm of 72-96 units total of insulin in 24 hours. As noted, I will change her to q 2 hour accuchecks until 1500 then q 4 hour and as noted plan to d/c in am tomorrow. She ate 50% of breakfast, 100% lunch refused dinner. She at 50% of breakfast 06/25/19 am. We will saline lock the IV as tolerating PO, accucheck q 2 hours until 1500, then q 4 hours. Correctional insulin, resume lantus. CMP in am. Continue lovenox for DVT prophy. HD #4 06/26/19: This am labs showed sodium 140.5, K+ 3.43 and stable compared to yesterday. Chloride 104.1, co2 31.1 up from 24.4 yesteday. Creatinine 0.46, gfr 170, glucose 124.6. Albumin 3.32. Vitals remained afebrile, pulse rate remained tachycardic in the 100-120 range, BP stable, tele continuous ST throughout hospital stay. O2 remained 98% and RR 12-12 last 24 hours. Glucose checks since yesterday 154, 235, 384, 364, 251,204,314, 210,146, 125, 104. Insulin yesterday 06/23/02/17 units. She resumed lantus last night. Sugars were great once this was back on board. No issues overnight. Good BM yesterday. Good Uout. Patient seen by me this am. Education reviewed. Discussed healthy/sick insulin use. She will be discharged today on 60 units of basaglar at night, use admelog 7 units base with correction of 1 unit for every 50 above 150. If sick recommended to use 50% of basaglar, check sugars q 1-2 hours and correct with the listed correctional insuln. Potassium remained a little low during stay. She will be d/c with oral K+ for the next ~2 weeks. Dietary sources of K+ d/w patient. Discussed to repeat evaluation with blood work in 1 week. F/U with me in clinic in 1 week. Day of d/c Exam: Vital Signs - 24 hr 06/25/19 06/25/19 06/25/19 13:01 17:45 20:00 Temperature 97.9 F 97.9 F Pulse Rate 105 H 112 H Pulse Rate [ 125 H Apical] Respiratory 19 19 16 Rate Blood Pressure 111/83 111/91 H O2 Sat by Pulse 99 99 Oximetry 06/25/19 06/26/19 06/26/19 21:34 02:00 05:13 Temperature 98.2 F 98.0 F 98.3 F Pulse Rate 109 H 111 H 108 H Pulse Rate [ Apical] Respiratory 20 13 12 Rate Blood Pressure 118/86 106/84 110/80 O2 Sat by Pulse 99 98 98 Oximetry 06/26/19 08:00 Temperature Pulse Rate Pulse Rate [ Apical] Respiratory 19 Rate Blood Pressure O2 Sat by Pulse Oximetry Constitutional: Appearance-Now without distress, Awake upon entry, Consistent with stated age. Orientation- Oriented x 3, alert GCS 15. Build and Nutrition-[ BMI normal] General- Patient is pleasant and cooperative with the interview and exam. Rounded and d/c patient today 09:15-9:48 Integumentary: No rash ENMT: Nares- bilateral quiet airflow, no discharge. Nasal mucosa- No bleeding noted and no ulcerations observed. [place], moist. Turbinates non boggy. Lips- normal color, moist without cracks/lesions Oral Cavity/Palate- hard/soft palate intact without lesions, oral mucosa pink and moist. Dentition assessed and discussed appropriate oral care. Tongue normal midline. Oropharynx- no pharyngeal erythema, Uvula midline. No post nasal drip. No exudate. Salivary glands- Non tender to palpation. Moist mucus membranes. CHEST/LUNG: Inspection- symmetric chest wall no pectus deformity. Normal effort , no distress, no use of accessory muscles. Palpation- nontender sternum, ribline. No abnormal pulsations. Auscultation- Breath sounds full. Deep inspiration/expiration. Normal tracheal sounds, Normal bronchial sounds overlying sternum, Bronchovessicular sounds normal between scapulae posteriorly , Normal vessicular breath sounds heard throughout periphery. Lungs are clear today. Adventitious sounds- No wheezes, rales, rhonchi. Calm breathing, CARDIOVASCULAR: Carotid artery- normal, no bruits or abnormal pulsations. Jugular vein- no pulsations. Palpation/Percussion- Normal PMI, no palpable thrill Auscultation- Tachycardia persists with normal rhythm. No murmur noted in sitting, supine positions. Extremities- no digital clubbing, cyanosis, edema, increased warmth. ABDOMEN: Inspection- normal and no visible pulsations. Normal contour. Auscultation- Bowel sounds normal, no abdominal bruits. Palpation/Percussion- soft, non-tender, no rebound tenderness, no rigidity (guarding), no jar tenderness, no masses. Peripheral Vascular: IV site Left AC intact, no concern. Lower extremity- Minimal pedal edema this am. Musculoskeletal: Generalized-No generalized swelling or edema of extremities, no digital clubbing or cyanosis, neurovascularly intact all four extremities. Neurological: General- Moves all 4 extremities symmetrically. Symmetrical face and body posture. Cranial nerves- individually evaluated II-XII and intact. PERRLA, Normal EOMI, visual/special senses appear intact, Face is symmetrical and normal sensation/movement, normal tongue, normal strength/posture of neck musculature. Neuropsych: Oriented- Person, place, time. (AAOx3), Mood/affect- normal and congruent. Able to articulate well. Speech-Normal speech, normal rate, normal tone, normal use of language, volume and coherence. Thought content- normal with ability to perform basic computations and apply abstract thought/reason. Associations- intact, no SI/HI, no hallucinations, delusions, obsessions. Judgment/insight- Appropriate. Memory-Recall intact, remote and recent memory intact. Knowledge- Age appropriate fund of knowledge, concentration and attention span normal. Lymphatic: Head/Neck- normal size and non tender to palpation. Plan: Diabetes Type 1 with hyperglycemia: 1. Check sugars daily in the morning fasting and again with each meal. Please log these in a spiral notebook and bring to clinic for your appointment. 2. Continue Lantus 60 units daily (we will try to consider changing to tresiba vs basaglar depending on insurance coverage). 3. Humalog Meal time Insulin: 7 units with each meal and we will increase by 1 unit for every 50 above 150. - Example #1 before lunch your sugar is 210. You would use 7 base and add 2 more units (1 for 150-200 and another for 200-250). For a total of 9 units. - Example #2 before Dinner your sugar is 275. You would use 7 base and add 3 more units (1 for 150-200, another 200-250 and another for 250-300). For a total of 10 units. 4. You need close follow-up with outpatient provider and may benefit from meeting with endocrinology. 5. I would like to consider getting you set up with an insulin pump and to have a continuous glucometer to see what your daily levels are doing. 6. Closer monitoring of your sugars are needed. 7. Microalbumin as an outpatient. 8. Initial goal for your A1C is <9.0. Ultimate goal 7-8%. Low Potassium: 1. Increase banana, make sure that these do not increase your blood sugars too much. 2. Take potassium with your meals twice daily. 3. I want to repeat metabolic panel in 1 week. What to do when sick: 1.. If you are sick, feeling poorly or unable to consume foods/drinks: Example nausea/vomiting diarrhea. - Cut your lantus to 50% of the dose: You will inject 30 units of lantus at the normal time. - Check your urine with ketone strips. - Check your sugars every 2 hours and use the following adjustment scale. - If your sugars are >350 use the below scale but repeat sugar in 1 hour otherwise continue hourly visits. 0-140 0 141-200 3 201-260 4 261-320 6 321-400 8 401-600 12 over 600 15 Diet: ADA 1800 Kcal Activity: Ad clarisse. Work: Return as able. >30 minutes spent with discharge today.
== END 2019-06-26 10:17 | disposition home or self-care (01) | DRG 638 ==
LOC: ED 20:55 → SCU 22:34
PROVIDERS: ADMIT Family Medicine; ATTEND Family Medicine
DX: E13.10 Other specified diabetes mellitus with ketoacidosis without coma; R79.81 Abnormal blood-gas level; R63.0 Anorexia; R11.0 Nausea; E10.10 Type 1 diabetes mellitus with ketoacidosis without coma; F41.9 Anxiety disorder, unspecified; R00.0 Tachycardia, unspecified; E87.6 Hypokalemia; E10.65 Type 1 diabetes mellitus with hyperglycemia; R53.1 Weakness; R53.81 Other malaise; E87.2 Acidosis

== ENCOUNTER 2022-01-21 10:42 | Observation (INO) ==
--- NOTE | 2022-01-21 11:25 | ED.PDOC ---
General ED Provider: Dr. BRIGIDA IRBY Chief Complaint: Nausea/Vomiting Stated Complaint: Hx of symptoms -lower back pain, hx renal stone-hasn't passed.Weakness with nausea and vomiting-last 10:30 AM Is Type I Diabetic. Has Been in DKA previously Time Seen by Provider: 01/21/22 11:00 Mode of Arrival: Walk-In Information Source: Patient Exam Limitations: No limitations Primary Care Provider: JORDAN MCCLOUD MD Nursing and Triage Documentation Reviewed and Agree: Yes Does patient meet sepsis criteria?: No If yes, has appropriate treatment been initiated?: Yes System Inflammatory Response Syndrome: Not Applicable Sepsis Protocol: For patient's 13 years and over: Temp is 96.8 and below OR 101 and greater Pulse >90 BPM Resp >20/minute Acutely Altered Mental Status Are patient's symptoms suggestive of a new infection, such as: -Pneumonia -Skin, Soft Tissue -Endocarditis -UTI -Bone, Joint Infection -Implantable Device -Acute Abdominal Infection -Wound Infection -Meningitis -Blood Stream Catheter Infection -Unknown Complaint Exam UTI Female Complaint/Exam Patient Complains of: Reports Painful urination Onset/Duration: 24 h Symptoms Are: Still present Timing: Constant Initial Severity: Moderate Current Severity: Moderate Location of Pain: Reports Left and Flank Associated Signs and Symptoms: Reports Chills and Flank pain : 2 Para: 1 Hx Total # of Abortions (Spontaneous & Elective): 1 Related History: Reports Similar episode CVA Tenderness: Yes Suprapubic Tenderness: No Differential Diagnoses: Metabolic Disorder and Ureteral Calculus (hx) Review of Systems Review Of Systems Constitutional: Reports Chills, Malaise and Weakness Eyes: Reports No symptoms Ears, Nose, Mouth, Throat: Reports No symptoms Respiratory: Reports No symptoms Cardiac: Reports No symptoms GI: Reports No symptoms : Reports Burning, Frequency, Flank pain and Urgency Musculoskeletal: Reports No symptoms Skin: Reports No symptoms Neurological: Reports No symptoms Endocrine: Reports No symptoms Hematologic/Lymphatic: Reports No symptoms All Other Systems: Reviewed and Negative [facility] Medical History Diabetes mellitus Family History FATHER Cancer Grandfather/Grandmother Diabetes Social History History of recent travel: No Additional Medical History: Elective TOP 01/07/22 Female Reproductive History Menstrual Age of Menarche: 14 Hx Hysterectomy: No Hx Tubal Ligation: No Hx Now: No Total pregnancies: 3 Full term: 2 Ab induced: 1 Physical Exam Physical Exam Appearance: Reports Ill-appearing Ill-appearing: Mild Pain Distress: Mild Eyes: Reports SANJUANITA, EOMI and Conjunctiva clear ENT: Reports Ears normal, Nose normal, Oropharynx normal and TMs Occluded Neck: Nonsupple Respiratory: Reports Airway patent, Breath sounds clear, Breath sounds equal and Breath sounds diminished Cardiovascular: Reports RRR, Pulses normal, No rub and No murmur GI/: Reports Soft and Tender Musculoskeletal: Reports Normal strength, ROM intact, No edema and No calf tende rness Skin: Reports Warm, Normal color and Pale Neurological: Reports Sensation intact, Motor intact, Reflexes intact, Cranial nerves intact, Alert and Oriented Psychiatric: Reports Affect appropriate, Mood appropriate and Anxious Re-Evaluation Re-Evaluation Time of Re-Evaluation: 17:00 Status: Improved Vital Signs Stable: Yes Pain Level: 0 Appearance: NAD Lungs: Clear Skin: Warm and Dry Neuro: Alert and Oriented X3 CV: RRR Physician Notification Case Discussed Physician Notified: Dr Mccloud Time of Notification: 16:00 Comments: Discussed case-agrees with admission to hospitalist service Critical Care Note Critical Care Note Total Critical Care Time (mins): 60 Course Course Hematology/Chemistry: 01/21/22 11:30 01/21/22 11:30 Orders, Labs, Meds: Lab Review 01/21/22 01/21/22 01/21/22 11:14 11:25 11:30 WBC 16.85 H RBC 4.64 Hgb 13.5 Hct 40.6 MCV 87.5 MCH 29.1 MCHC 33.3 RDW Coeff of Ion 13.2 Plt Count 239 Immature Gran % (Auto) 0.6 Neut % (Auto) 93.0 H Lymph % (Auto) 4.0 L Wake % (Auto) 1.9 Eos % (Auto) 0.1 Baso % (Auto) 0.4 Neut # (Auto) 15.7 H Lymph # (Auto) 0.7 Wake # (Auto) 0.3 L Eos # (Auto) 0.0 Baso # (Auto) 0.1 Immature Gran # (Auto) 0.1 Sodium Potassium Chloride Carbon Dioxide Anion Gap BUN Creatinine Estimated GFR (MDRD) BUN/Creatinine Ratio Glucose Lactic Acid Calcium Magnesium Total Bilirubin AST ALT Alkaline Phosphatase Total Creatine Kinase Total Protein Albumin Globulin Albumin/Globulin Ratio HCG, Quant Serum , Qual Urine Color Light Urine Clarity Cloudy Urine pH 6.0 Ur Specific [place] 1.010 Urine Protein 1+ H Urine Glucose (UA) 2+ H Urine Ketones Negative Urine Blood 2+ H Urine Nitrite Positive H Urine Bilirubin Negative Urine Urobilinogen 0.2 Ur Leukocyte Esterase 1+ H Urine Microscopic RBC 10-20 Urine Microscopic WBC Tntc Ur Squamous Epith Cells 5-10 Urine Bacteria 2+ Adenovirus (PCR) B. pertussis DNA (PCR) B.parapertussis DNA PCR C. pneumoniae DNA (PCR) Coronavirus OC43 (PCR) Coronavirus HKU1 (PCR) Coronavirus 229E (PCR) Coronavirus NL63 (PCR) Human Metapneumovir PCR Influenza Type A (PCR) Influ A Molecular Assay Negative by naat Influenza B (RT-PCR) Influ B Molecular Assay Negative by naat M. pneumoniae (PCR) Parainfluenza 1 (PCR) Parainfluenza 2 (PCR) Parainfluenza 3 (PCR) Parainfluenza 4 (PCR) RSV (PCR) Entero/Rhino (PCR) SARS-CoV-2 (PCR) 01/21/22 01/21/22 01/21/22 11:30 11:30 11:30 WBC RBC Hgb Hct MCV MCH MCHC RDW Coeff of Ion Plt Count Immature Gran % (Auto) Neut % (Auto) Lymph % (Auto) Wake % (Auto) Eos % (Auto) Baso % (Auto) Neut # (Auto) Lymph # (Auto) Wake # (Auto) Eos # (Auto) Baso # (Auto) Immature Gran # (Auto) Sodium 139.4 Potassium 3.07 L Chloride 111.4 H Carbon Dioxide 19.9 L Anion Gap 11.17 BUN 16.0 Creatinine 0.91 Estimated GFR (MDRD) 76.00 BUN/Creatinine Ratio 17.58 Glucose 211.1 H Lactic Acid 3.42 H Calcium 9.30 Magnesium 1.73 Total Bilirubin 0.61 AST 20.3 ALT 18.5 Alkaline Phosphatase 121.6 Total Creatine Kinase 32.1 Total Protein 6.79 Albumin 3.90 Globulin 2.89 Albumin/Globulin Ratio 1.34 HCG, Quant Serum , Qual Positive Urine Color Urine Clarity Urine pH Ur Specific [place] Urine Protein Urine Glucose (UA) Urine Ketones Urine Blood Urine Nitrite Urine Bilirubin Urine Urobilinogen Ur Leukocyte Esterase Urine Microscopic RBC Urine Microscopic WBC Ur Squamous Epith Cells Urine Bacteria Adenovirus (PCR) B. pertussis DNA (PCR) B.parapertussis DNA PCR C. pneumoniae DNA (PCR) Coronavirus OC43 (PCR) Coronavirus HKU1 (PCR) Coronavirus 229E (PCR) Coronavirus NL63 (PCR) Human Metapneumovir PCR Influenza Type A (PCR) Influ A Molecular Assay Influenza B (RT-PCR) Influ B Molecular Assay M. pneumoniae (PCR) Parainfluenza 1 (PCR) Parainfluenza 2 (PCR) Parainfluenza 3 (PCR) Parainfluenza 4 (PCR) RSV (PCR) Entero/Rhino (PCR) SARS-CoV-2 (PCR) 01/21/22 01/21/22 11:30 13:35 WBC RBC Hgb Hct MCV MCH MCHC RDW Coeff of Ion Plt Count Immature Gran % (Auto) Neut % (Auto) Lymph % (Auto) Wake % (Auto) Eos % (Auto) Baso % (Auto) Neut # (Auto) Lymph # (Auto) Wake # (Auto) Eos # (Auto) Baso # (Auto) Immature Gran # (Auto) Sodium Potassium Chloride Carbon Dioxide Anion Gap BUN Creatinine Estimated GFR (MDRD) BUN/Creatinine Ratio Glucose Lactic Acid Calcium Magnesium Total Bilirubin AST ALT Alkaline Phosphatase Total Creatine Kinase Total Protein Albumin Globulin Albumin/Globulin Ratio HCG, Quant 45.998 Serum , Qual Urine Color Urine Clarity Urine pH Ur Specific [place] Urine Protein Urine Glucose (UA) Urine Ketones Urine Blood Urine Nitrite Urine Bilirubin Urine Urobilinogen Ur Leukocyte Esterase Urine Microscopic RBC Urine Microscopic WBC Ur Squamous Epith Cells Urine Bacteria Adenovirus (PCR) Not detected B. pertussis DNA (PCR) Not detected B.parapertussis DNA PCR Not detected C. pneumoniae DNA (PCR) Not detected Coronavirus OC43 (PCR) Not detected Coronavirus HKU1 (PCR) Not detected Coronavirus 229E (PCR) Not detected Coronavirus NL63 (PCR) Not detected Human Metapneumovir PCR Not detected Influenza Type A (PCR) Not detected Influ A Molecular Assay Influenza B (RT-PCR) Not detected Influ B Molecular Assay M. pneumoniae (PCR) Not detected Parainfluenza 1 (PCR) Not detected Parainfluenza 2 (PCR) Not detected Parainfluenza 3 (PCR) Not detected Parainfluenza 4 (PCR) Not detected RSV (PCR) Not detected Entero/Rhino (PCR) Not detected SARS-CoV-2 (PCR) Not detected Orders Category Date Time Status IV [ED IV/MEDIPORT/POWERPORT] .ONCE EMERGENCY 01/21/22 11:22 Active BLOOD CULTURE (ED ONLY) Stat LAB 01/21/22 11:30 Received CBC W/ AUTO DIFF Stat LAB 01/21/22 11:30 Completed CMP [COMPREHENSIVE METABOLIC PANEL] Stat LAB 01/21/22 11:30 Completed CPK [CREATINE KINASE] Stat LAB 01/21/22 11:30 Completed FLU A & B MOLECULAR [FLU A/B MOLECULAR] Stat LAB 01/21/22 11:25 Completed HCG QUALITATIVE [SERUM ] Stat LAB 01/21/22 11:30 Completed HCG,QUANTITATIVE Stat LAB 01/21/22 11:30 Completed LACTIC ACID Stat LAB 01/21/22 11:30 Completed MAGNESIUM Stat LAB 01/21/22 11:30 Completed RAPID STREP SCREEN [MOLECULAR GROUP A STREP] Stat LAB 01/21/22 11:25 Completed UA [URINALYSIS C & S IF INDICATED] Stat LAB 01/21/22 11:14 Completed URINE CULTURE Stat LAB 01/21/22 11:25 Received 0.9 % Sodium Chloride [Saline Flush] MEDS 01/21/22 11:21 Active 1 syr IVF PRN PRN Ceftriaxone/D5w 1 gm Premix [Rocephin 1 gm/50 ml D5w] MEDS 01/21/22 12:24 Discontinued 1 gm in 50 ml IV ONCE Ketorolac Tromethamine [Toradol] MEDS 01/21/22 16:22 Discontinued 30 mg IVP ONCE STA Sodium Chloride 0.9% [Sodium Chloride] 1,000 ml MEDS 01/21/22 12:21 Disc ontinued IV BOLUS Medications Generic Name Dose Route Start Last Admin Trade Name Freq PRN Reason Stop Dose Admin Potassium Chloride/Dextrose/Sod Cl 1,000 mls @ 125 mls/hr 01/21/22 17:30 D5%-Ns-Kcl 20 Meq/L Iv Zeenat IV .Q8H TICO CEFTRIAXONE/D5W 1 GM PREMIX 1 gm in 50 mls @ 75 mls/hr 01/22/22 09:00 Rocephin 1 Gm/50 Ml D5w IV 01/25/22 08:59 DAILY TICO Ondansetron HCl 4 mg 01/21/22 17:14 Ondansetron Hcl/Pf 4 Mg/2 Ml Sdv IVP Q6H PRN Nausea / Vomiting Sodium Chloride 1 syr 01/21/22 11:21 01/21/22 12:47 0.9% Sodium Chloride 10 Ml Disp.Syrin IVF 1 syr PRN PRN Administration To flush IV Discontinued Medications Generic Name Dose Route Start Last Admin Trade Name Freq PRN Reason Stop Dose Admin Sodium Chloride 1,000 mls @ 1,000 mls/hr 01/21/22 12:21 01/21/22 12:47 Sodium Chloride IV 01/21/22 13:20 1,000 mls/hr BOLUS STA Administration CEFTRIAXONE/D5W 1 GM PREMIX 1 gm in 50 mls @ 75 mls/hr 01/21/22 12:24 01/21/22 12:47 Rocephin 1 Gm/50 Ml D5w IV 01/21/22 13:03 75 mls/hr ONCE STA Administration Ketorolac Tromethamine 30 mg 01/21/22 16:22 01/21/22 16:30 Ketorolac Tromethamine 30 Mg/Ml Vial IVP 01/21/22 16:23 30 mg ONCE STA Administration Vital Signs: Temp Pulse Resp BP Pulse Ox 01/21/22 10:45 99.7 F H 142 H 22 106/71 97 Discharge Plan Discharge Discharge Problem: Diabetes mellitus type 1, uncontrolled, insulin dependent, Nausea, Vomiting, Acute UTI ED Provider: BRIGIDA IRBY Physician Progress Note: []
[2022-01-21 11:35] LABS: BASOPHILS # (AUTO) 0.1 K/uL (0-0.2); BASOPHILS % (AUTO) 0.4 % (0.0-3.0); EOSINOPHILS % (AUTO) 0.1 % (0.0-7.0); HEMATOCRIT 40.6 % (37.0-47.0); HEMOGLOBIN 13.5 g/dl (12.0-16.0); IMMATURE GRANULOCYTE # (AUTO) 0.1 (0.0-1.0); IMMATURE GRANULOCYTE % (AUTO) 0.6 % (0.0-5.0); LYMPHOCYTES # (AUTO) 0.7 K/uL (0.60-3.4); MEAN CORPUSCULAR HEMOGLOBIN 29.1 pg (27.0-31.0); MEAN CORPUSCULAR HGB CONC 33.3 (31.8-35.4); MEAN CORPUSCULAR VOLUME 87.5 fl (81.0-99.0); MONOCYTES # (AUTO) 0.3 K/uL (0.4-2.0); MONOCYTES % (AUTO) 1.9 (0-10); NEUTROPHILS # (AUTO) 15.7 K/ul (2.0-6.9); PLATELET COUNT 239 10^3/uL (140-440); RDW COEFFICIENT OF VARIATION 13.2 % (11.6-14.8); RED BLOOD COUNT 4.64 10^6/ul (4.20-5.40); WHITE BLOOD COUNT 16.85 K/ul (4.6-10.2)
[2022-01-21 11:38] LABS: BILIRUBIN,URINE Negative (NEGATIVE); CLARITY,URINE Cloudy (CLEAR); COLOR,URINE Light (YELLOW); GLUCOSE, URINE (UA) 2+ (NEGATIVE); KETONES,URINE Negative (NEGATIVE); LEUKOCYTE ESTERASE ,URINE 1+ (NEGATIVE); NITRITE,URINE Positive (NEGATIVE); PROTEIN,URINE 1+ (NEGATIVE); URINE, BLOOD 2+ (NEGATIVE); UROBILINOGEN,URINE 0.2 (0.2)
[2022-01-21 11:47] LABS: ALANINE AMINOTRANSFERASE 18.5 U/L (0-35); ALBUMIN 3.9 g/dL (3.5-5.0); ALKALINE PHOSPHATASE 121.6 U/L (38-126); ASPARTATE AMINO TRANSFERASE 20.3 U/L (14-36); BILIRUBIN,TOTAL 0.61 mg/dL (0.2-1.3); CALCIUM 9.3 mg/dL (8.4-10.2); CARBON DIOXIDE 19.9 mmol/L (22-30.0); CHLORIDE 111.4 mmol/L (98-107); CREATINE KINASE 32.1 U/L (30-135); CREATININE 0.91 mg/dL (0.60-1.30); GLUCOSE 211.1 mg/dL (74-106); MAGNESIUM 1.73 mg/dL (1.6-2.3); POTASSIUM 3.07 mmol/L (3.5-5.1); SODIUM 139.4 mmol/L (134.5-145); TOTAL PROTEIN 6.79 g/dL (6.3-8.2)
[2022-01-21 11:48] LABS: BACTERIA,URINE 2+ (NOT PRESENT); URINE WBC, MICROSCOPIC TNTC (0-2)
[2022-01-21 11:51] LABS: SERUM PREGNANCY POSITIVE (NEGATIVE)
[2022-01-21 11:54] LABS: MOLECULAR FLU A NEGATIVE BY NAAT (NEGATIVE); MOLECULAR FLU B NEGATIVE BY NAAT (NEGATIVE)
[2022-01-21] MEDS ORDERED: SODIUM CHLORIDE 1,000 ML IV STA (12:21)
[2022-01-21] MEDS ORDERED: ROCEPHIN 1 GM/50 ML D5W 1 GM/50 ML BAG IV STA (12:24)
[2022-01-21 13:43] LABS: BORDETELLA PARAPERTUSSIS (PCR) NOT DETECTED (NOT DETECT); BORDETELLA PERTUSSIS (PCR) NOT DETECTED (NOT DETECT); CHLAMYDIA PNEUMONIAE (PCR) NOT DETECTED (NOT DETECT); CORONAVIRUS 229E (PCR) NOT DETECTED (NOT DETECT); CORONAVIRUS HKU1 (PCR) NOT DETECTED (NOT DETECT); CORONAVIRUS NL63 (PCR) NOT DETECTED (NOT DETECT); CORONAVIRUS OC43 (PCR) NOT DETECTED (NOT DETECT); HUMAN METAPNEUMOVIRUS (PCR) NOT DETECTED (NOT DETECT); HUMAN RHINOVIRUS/ENTEROV (PCR) NOT DETECTED (NOT DETECT); INFLUENZA B (PCR) NOT DETECTED (NOT DETECT); MYCOPLASMA PNEUMONIAE (PCR) NOT DETECTED (NOT DETECT); PARAINFLUENZA VIRUS 1 (PCR) NOT DETECTED (NOT DETECT); PARAINFLUENZA VIRUS 2 (PCR) NOT DETECTED (NOT DETECT); PARAINFLUENZA VIRUS 3 (PCR) NOT DETECTED (NOT DETECT); PARAINFLUENZA VIRUS 4 (PCR) NOT DETECTED (NOT DETECT); RESPIRATORY SYNCYTIAL V (PCR) NOT DETECTED (NOT DETECT); SARS_COV_2 (PCR) NOT DETECTED (NOT DETECT)
[2022-01-21 14:53] LABS: ADENOVIRUS (PCR) NOT DETECTED (NOT DETECT)
[2022-01-21] MEDS ORDERED: TORADOL IVP STA (16:22)
[2022-01-21] MEDS: D5%-NS-KCL 20 MEQ/L IV SOL 1,000 ML IV SCH (17:51)
[2022-01-21 18:29] VITALS: BMI 23.3
[2022-01-21] MEDS: TORADOL IVP PRN (21:50)
[2022-01-22] MEDS: D5%-NS-KCL 20 MEQ/L IV SOL 1,000 ML IV SCH ×2 (03:08→14:27)
[2022-01-22] MEDS: TORADOL IVP PRN (03:32)
[2022-01-22] MEDS: ZOFRAN 4 MG/2 ML IVP PRN ×3 (03:44→20:06)
[2022-01-22] MEDS: HUMALOG SUBCUT PRN ×4 (03:44→23:46)
[2022-01-22 05:25] LABS: BASOPHILS # (AUTO) 0.1 K/uL (0-0.2); BASOPHILS % (AUTO) 0.4 % (0.0-3.0); EOSINOPHILS # (AUTO) 0.1 K/ul (0.0-0.7); EOSINOPHILS % (AUTO) 0.3 % (0.0-7.0); HEMATOCRIT 34.3 % (37.0-47.0); HEMOGLOBIN 11.3 g/dl (12.0-16.0); IMMATURE GRANULOCYTE # (AUTO) 0.2 (0.0-1.0); IMMATURE GRANULOCYTE % (AUTO) 0.8 % (0.0-5.0); LYMPHOCYTES # (AUTO) 1.4 K/uL (0.60-3.4); LYMPHOCYTES % (AUTO) 6.3 (10.0-50.0); MEAN CORPUSCULAR HEMOGLOBIN 29.4 pg (27.0-31.0); MEAN CORPUSCULAR HGB CONC 32.9 (31.8-35.4); MEAN CORPUSCULAR VOLUME 89.1 fl (81.0-99.0); MONOCYTES # (AUTO) 1.5 K/uL (0.4-2.0); MONOCYTES % (AUTO) 6.8 (0-10); NEUTROPHILS # (AUTO) 18.9 K/ul (2.0-6.9); NEUTROPHILS % (AUTO) 85.4 % (42.2-75.2); PLATELET COUNT 214 10^3/uL (140-440); RDW COEFFICIENT OF VARIATION 13.4 % (11.6-14.8); RED BLOOD COUNT 3.85 10^6/ul (4.20-5.40); WHITE BLOOD COUNT 22.06 K/ul (4.6-10.2)
[2022-01-22 05:39] LABS: ALANINE AMINOTRANSFERASE 14.3 U/L (0-35); ALBUMIN 2.85 g/dL (3.5-5.0); ALKALINE PHOSPHATASE 88.2 U/L (38-126); ASPARTATE AMINO TRANSFERASE 15.9 U/L (14-36); BILIRUBIN,TOTAL 0.23 mg/dL (0.2-1.3); BLOOD UREA NITROGEN 12.5 mg/dL (7-17); CALCIUM 7.98 mg/dL (8.4-10.2); CARBON DIOXIDE 20.5 mmol/L (22-30.0); CHLORIDE 112.5 mmol/L (98-107); CREATININE 0.73 mg/dL (0.60-1.30); GLUCOSE 203.1 mg/dL (74-106); POTASSIUM 3.09 mmol/L (3.5-5.1); SODIUM 137.3 mmol/L (134.5-145); TOTAL PROTEIN 5.45 g/dL (6.3-8.2)
[2022-01-22] MEDS ORDERED: DILAUDID 1 MG/ML SYRINGE IVP PRN (07:43)
[2022-01-22] MEDS: DILAUDID 0.5 MG/0.5 ML SYRINGE IVP PRN ×2 (08:23→20:06)
[2022-01-22] MEDS ORDERED: ROCEPHIN 1 GM/50 ML D5W 1 GM/50 ML BAG IV SCH (09:00)
[2022-01-22] MEDS: LANTUS SUBCUT SCH (09:59)
--- NOTE | 2022-01-22 10:18 | CT ---
EXAM: CT Abdomen without contrast. CT Pelvis without contrast. HISTORY: Left flank pain. COMPARISON: 10/24/2021. TECHNIQUE: Multiple axial images of the abdomen and pelvis were obtained without intravenous contras t. Images were reformatted in the sagittal and coronal plane. FINDINGS: Please note that evaluation of the abdominal and pelvic structures is limited due to lack of intravenous contrast. No acute abnormality in the lung bases. No acute osseous abnormality. The liver, gallbladder, pancreas, spleen, adrenal glands are normal. Right kidney normal. Moderate left perinephric fat stranding. No hydronephrosis or urinary calculus . Stranding is extends along the left ureter and along the urinary bladder. There is bladder wall t hickening and a small amount of air in the bladder. No bladder stones are seen. Uterus demonstrates normal contour. Small amount free pelvic fluid. There is no bowel obstruction or acute inflammation. Probable normal appendix. IMPRESSION: Moderate left perinephric fat stranding, urinary bladder wall thickening and internal bladder air are most suggestive of urinary tract infection and pyelonephritis. No hydronephrosis or obstructing julieta culi are seen. All CT scans are performed using dose optimization techniques as appropriate to the performed exam an d include at least one of the following: Automated exposure control, adjustment of the mA and/or kV according t o size, and the use of iterative reconstruction technique.
--- NOTE | 2022-01-22 10:25 | PCM.PROG ---
Date Seen by Provider: 01/22/22 Time Seen by Provider: 10:19 Subjective: Complains of bilateral back/CVA pain;left worse than right. Objective: Vitals: T=98.2 F, P=109, R=16, DQ=308/64, SPO2=98 Appears acutely ill, weak. BP has been borderline and pulse has been elevated. HEENT: []Oral mucosa somewhat dry. Neck: [] Lungs: [] Chest clear. CVS: []Sinus tachycardia Abdomen: []Mild to moderate bilateral CVA tenderness;left greater than right. Abdomen soft and nontender. Extremities: [] Neurological: [] Skin: [] Lab/Tests/Diagnostic Imaging: [] (1) Hyperglycemia due to type 1 diabetes mellitus: Status: Acute Code(s): E10.65 - Type 1 diabetes mellitus with hyperglycemia SNOMED Code(s): 763742746153070 Assessment: Blood sugars reasonably controlled. (2) Dehydration: Status: Resolved Code(s): E86.0 - Dehydration SNOMED Code(s): 41777675 Assessment: Patient still appears to be hypovolemic. (3) Tachycardia: Status: Chronic Code(s): R00.0 - Tachycardia, unspecified SNOMED Code(s): 4722588 (4) Hypokalemia: Status: Acute Code(s): E87.6 - Hypokalemia SNOMED Code(s): 34565553 (5) Acute UTI: Status: Acute Code(s): N39.0 - Urinary tract infection, site not specified SNOMED Code(s): 657201033 Assessment: Patient with signs worrisome for sepsis. History of urolithiasis. Plan: Fluid bolus with NS 1L IV. Increase rocephin to 1gram IVPB Q12hr. CT scan abd/pelvis to rule out obstruction related to urolithiasis. Replete potassium.
[2022-01-22] MEDS: K-DUR PO SCH ×2 (11:22→17:05)
[2022-01-22] MEDS: TYLENOL PO PRN ×2 (13:09→18:07)
[2022-01-22] MEDS ORDERED: ROCEPHIN 1 GM/50 ML D5W 1 GM/50 ML BAG IV ONE (16:20)
[2022-01-23] MEDS: D5%-NS-KCL 20 MEQ/L IV SOL 1,000 ML IV SCH ×6 (03:20→15:06)
[2022-01-23] MEDS: TYLENOL PO PRN ×4 (04:40→22:17)
[2022-01-23] MEDS: ZOFRAN 4 MG/2 ML IVP PRN ×2 (05:41→16:01)
[2022-01-23] MEDS: DILAUDID 0.5 MG/0.5 ML SYRINGE IVP PRN ×2 (05:42→15:51)
[2022-01-23] MEDS: HUMALOG SUBCUT PRN ×2 (06:00→11:45)
[2022-01-23 07:54] LABS: BASOPHILS % (AUTO) 0.3 % (0.0-3.0); EOSINOPHILS # (AUTO) 0.1 K/ul (0.0-0.7); EOSINOPHILS % (AUTO) 0.5 % (0.0-7.0); HEMATOCRIT 32.8 % (37.0-47.0); HEMOGLOBIN 10.8 g/dl (12.0-16.0); IMMATURE GRANULOCYTE % (AUTO) 0.4 % (0.0-5.0); LYMPHOCYTES # (AUTO) 1.3 K/uL (0.60-3.4); LYMPHOCYTES % (AUTO) 11.4 (10.0-50.0); MEAN CORPUSCULAR HGB CONC 32.9 (31.8-35.4); MEAN CORPUSCULAR VOLUME 88.2 fl (81.0-99.0); MONOCYTES # (AUTO) 0.9 K/uL (0.4-2.0); MONOCYTES % (AUTO) 8.2 (0-10); NEUTROPHILS % (AUTO) 79.2 % (42.2-75.2); PLATELET COUNT 214 10^3/uL (140-440); RDW COEFFICIENT OF VARIATION 13.1 % (11.6-14.8); RED BLOOD COUNT 3.72 10^6/ul (4.20-5.40); WHITE BLOOD COUNT 11.38 K/ul (4.6-10.2)
[2022-01-23 08:16] LABS: ALANINE AMINOTRANSFERASE 11.2 U/L (0-35); ALBUMIN 2.76 g/dL (3.5-5.0); ALKALINE PHOSPHATASE 91.6 U/L (38-126); ASPARTATE AMINO TRANSFERASE 13.9 U/L (14-36); BILIRUBIN,TOTAL 0.21 mg/dL (0.2-1.3); BLOOD UREA NITROGEN 5.6 mg/dL (7-17); CALCIUM 7.84 mg/dL (8.4-10.2); CARBON DIOXIDE 23.8 mmol/L (22-30.0); CHLORIDE 113.6 mmol/L (98-107); CREATININE 0.73 mg/dL (0.60-1.30); GLUCOSE 156.8 mg/dL (74-106); POTASSIUM 3.51 mmol/L (3.5-5.1); SODIUM 138.4 mmol/L (134.5-145); TOTAL PROTEIN 5.38 g/dL (6.3-8.2)
[2022-01-23] MEDS: K-DUR PO SCH ×2 (08:30→17:07)
[2022-01-23] MEDS: LANTUS SUBCUT SCH (08:31)
[2022-01-23] MEDS ORDERED: ROCEPHIN 2 GM/50 ML D5W 2 GM/50 ML BAG IV SCH (09:00)
--- NOTE | 2022-01-23 10:38 | PCM.PROG ---
Date Seen by Provider: 01/23/22 Time Seen by Provider: 10:33 Subjective: fever and left flank pain, pt admitted 01/21 with pyelonephritis by cat scan, fever spike today 102.6 treated with tylenol now 97&, pt feeling improved Objective: Vitals: T=97.7 F, P=88, R=14, JG=986/87, SPO2=96 HEENT: []conjunctiva clear Neck: []supple Lungs: [] no respiratory distress CVS: [] Abdomen: []nondistended Extremities: []bessy Neurological: []alert and oriented Skin: []pink Lab/Tests/Diagnostic Imaging: []wbc 11.3, K+ 3.5, (1) Hyperglycemia due to type 1 diabetes mellitus: Status: Acute Code(s): E10.65 - Type 1 diabetes mellitus with hyperglycemia SNOMED Code(s): 231947777760152 (2) Dehydration: Status: Resolved Code(s): E86.0 - Dehydration SNOMED Code(s): 78022924 (3) Tachycardia: Status: Chronic Code(s): R00.0 - Tachycardia, unspecified SNOMED Code(s): 9817751 (4) Hypokalemia: Status: Acute Code(s): E87.6 - Hypokalemia SNOMED Code(s): 79367861 (5) Acute UTI: Status: Acute Code(s): N39.0 - Urinary tract infection, site not specified SNOMED Code(s): 132357897 Assessment: stable Plan: iv D5NS w/ 20 KCL reduce rate from 100 to 75cc/hr, change antibiotic to Zosyn 3.375 iv q6, pain control w/ dilaudid 0.5mg q3 prn, continue zofran prn, am labs care to Dr Seymour at 19:00
[2022-01-23] MEDS: ZOSYN 3.375 GM 3.375 GM in SODIUM CHLORIDE 50 ML IV SCH ×3 (12:13→23:44)
[2022-01-23] MEDS ORDERED: CIPRO 400 MG/200 ML D5W 400 MG/200 ML BAG IV SCH (21:00)
[2022-01-24] MEDS: TYLENOL PO PRN (03:51)
[2022-01-24] MEDS: ZOFRAN 4 MG/2 ML IVP PRN (03:58)
[2022-01-24] MEDS: D5%-NS-KCL 20 MEQ/L IV SOL 1,000 ML IV SCH (04:40)
[2022-01-24 05:15] VITALS: BP 138/95; TEMP 99.4
[2022-01-24] MEDS ORDERED: DEXTROSE 50%-WATER ABBOJECT IVP STA (05:34)
[2022-01-24] MEDS: ZOSYN 3.375 GM 3.375 GM in SODIUM CHLORIDE 50 ML IV SCH (05:40)
--- NOTE | 2022-01-24 08:01 | PCM.PROG ---
Date Seen by Provider: 01/24/22 Time Seen by Provider: 07:40 Subjective: Pt doing much better. Did drop her glucose overnight but is able to tolerate food and fluids today. Still with occasional fevers treated with tylenol. Would like to go home if possible. Objective: Vitals: T=99.4 F, P=91, R=20, TD=458/95, SPO2=98 HEENT: PERRL, EOMI Neck: supple Lungs: clear CVS: RRR Abdomen: soft, non tender, no CVA TTP Extremities: unremarkable Neurological: normal Lab/Tests/Diagnostic Imaging: pending (1) Hyperglycemia due to type 1 diabetes mellitus: Status: Acute Code(s): E10.65 - Type 1 diabetes mellitus with hyperglycemia SNOMED Code(s): 842801692934751 (2) Dehydration: Status: Resolved Code(s): E86.0 - Dehydration SNOMED Code(s): 56679754 (3) Tachycardia: Status: Chronic Code(s): R00.0 - Tachycardia, unspecified SNOMED Code(s): 2052921 (4) Hypokalemia: Status: Acute Code(s): E87.6 - Hypokalemia SNOMED Code(s): 67681981 (5) Acute UTI: Status: Acute Code(s): N39.0 - Urinary tract infection, site not specified SNOMED Code(s): 379579222 Plan: 1. Pylonephritis: Continue antibiotics. If doing well today, will be sent home on oral antibiotics for another week. 2. Hypoglycemia: Feed and assure that the patient can tolerate food and fluids. She is comfortable managing her glucose at home. 3. Hypokalemia: Recheck labs today to assure it is corrected. 4. Disposition: Pt wishes to go home. If tolerates food and fluids, she can be D/C'd with antibiotics.
[2022-01-24 08:03] LABS: BASOPHILS % (AUTO) 0.3 % (0.0-3.0); EOSINOPHILS # (AUTO) 0.1 K/ul (0.0-0.7); EOSINOPHILS % (AUTO) 1.2 % (0.0-7.0); HEMATOCRIT 33.7 % (37.0-47.0); HEMOGLOBIN 11.3 g/dl (12.0-16.0); IMMATURE GRANULOCYTE # (AUTO) 0.1 (0.0-1.0); IMMATURE GRANULOCYTE % (AUTO) 0.6 % (0.0-5.0); LYMPHOCYTES # (AUTO) 1.4 K/uL (0.60-3.4); LYMPHOCYTES % (AUTO) 14.6 (10.0-50.0); MEAN CORPUSCULAR HEMOGLOBIN 29.1 pg (27.0-31.0); MEAN CORPUSCULAR HGB CONC 33.5 (31.8-35.4); MEAN CORPUSCULAR VOLUME 86.9 fl (81.0-99.0); MONOCYTES % (AUTO) 10.5 (0-10); NEUTROPHILS # (AUTO) 6.8 K/ul (2.0-6.9); NEUTROPHILS % (AUTO) 72.8 % (42.2-75.2); PLATELET COUNT 225 10^3/uL (140-440); RDW COEFFICIENT OF VARIATION 12.9 % (11.6-14.8); RED BLOOD COUNT 3.88 10^6/ul (4.20-5.40)
[2022-01-24 08:18] LABS: ALANINE AMINOTRANSFERASE 15.3 U/L (0-35); ALBUMIN 2.89 g/dL (3.5-5.0); ALKALINE PHOSPHATASE 91.6 U/L (38-126); ASPARTATE AMINO TRANSFERASE 21.8 U/L (14-36); BILIRUBIN,TOTAL 0.28 mg/dL (0.2-1.3); BLOOD UREA NITROGEN 6.8 mg/dL (7-17); CALCIUM 8.25 mg/dL (8.4-10.2); CHLORIDE 110.5 mmol/L (98-107); CREATININE 0.78 mg/dL (0.60-1.30); GLUCOSE 163.4 mg/dL (74-106); POTASSIUM 3.56 mmol/L (3.5-5.1); SODIUM 139.2 mmol/L (134.5-145); TOTAL PROTEIN 5.62 g/dL (6.3-8.2)
[2022-01-24] MEDS: LANTUS SUBCUT SCH (08:54)
--- NOTE | 2022-01-24 09:26 | PCM.DC ---
Final Diagnosis: Pylonephritis Hypokalemia Physical Exam Appearance: Well-appearing Ill-appearing: None Pain Distress: None Eyes: SANJUANITA, EOMI and Conjunctiva clear ENT: Ears normal, Nose normal and Oropharynx normal Neck: Supple Respiratory: Airway patent, Breath sounds clear, Breath sounds equal and Respirations nonlabored Cardiovascular: RRR, Pulses normal, No rub and No murmur GI/: Soft, Nontender, No masses, Bowel sounds normal and No Organomegaly Musculoskeletal: Normal strength, ROM intact, No edema and No calf tenderness Skin: Warm, Dry and Normal color Neurological: Sensation intact, Motor intact, Reflexes intact, Cranial nerves intact, Alert and Oriented Psychiatric: Affect appropriate and Mood appropriate (1) Hyperglycemia due to type 1 diabetes mellitus: Status: Acute Code(s): E10.65 - Type 1 diabetes mellitus with hyperglycemia SNOMED Code(s): 156588920131394 (2) Tachycardia: Status: Chronic Code(s): R00.0 - Tachycardia, unspecified SNOMED Code(s): 9230342 (3) Hypokalemia: Status: Acute Code(s): E87.6 - Hypokalemia SNOMED Code(s): 17040011 (4) Acute UTI: Status: Acute Code(s): N39.0 - Urinary tract infection, site not specified SNOMED Code(s): 743412361 Reason for Hospitalization: Pylonephritis Hypokalemia Prognosis/Condition at Discharge: Good and stable Medications at Discharge: Ambulatory Orders Medication Instructions Recorded insulin glargine 100 unit/mL (3 40 unit SUBCUT DAILY 01/21/22 mL) subcutaneous pen (Lantus Solostar U-100 Insulin) insulin lispro 100 unit/mL 1 sliding scale dose SUBCUT TID 01/21/22 subcutaneous pen (Humalog KwikPen (U-100) Insulin) Lab/Diagnostics: Labs are much improved at [place]. WBC is normal and chems are normal. Education Provided to Patient and Family: Take antibiotics and nausea medication as needed. Alterante tylenol and motrin for fevers Follow-ups: Follow-up with your doctor in 3-4 days or return if symptoms change or worsen. Discharge Disposition: Home Hospital Course: Pt was admitted and treated with antibiotics. She did have an episode of hypoglycemia that was treated. Her potassium was repleted. She was feeling much better at time of discharge. Plan: 1. Pylonephritis: Antibiotics for one week. Follow-up with your pcp. Return for worsening symptoms.
== END 2022-01-24 12:00 | disposition home or self-care (01) ==
LOC: ED 10:42 → MEDSURG A 16:25 → INTOOBSV 16:25 → MEDSURG A 18:20
PROVIDERS: ADMIT Emergency Medicine; ATTEND Emergency Medicine
DX: E87.6 Hypokalemia; R00.0 Tachycardia, unspecified; Z20.822 Contact with and (suspected) exposure to COVID-19; B96.20 Unspecified Escherichia coli [E. coli] as the cause of diseases classified elsewhere; Z79.899 Other long term (current) drug therapy; Z51.81 Encounter for therapeutic drug level monitoring; N89.8 Other specified noninflammatory disorders of vagina; E10.65 Type 1 diabetes mellitus with hyperglycemia; R50.9 Fever, unspecified; Z87.442 Personal history of urinary calculi; E83.59 Other disorders of calcium metabolism; N39.0 Urinary tract infection, site not specified; Z79.01 Long term (current) use of anticoagulants